=== PATIENT | female | born 1940 ===

== ENCOUNTER → 2020-01-10 15:40 | Outpatient (BNVA) | payer MEDICARE, SELFPAY | PROVIDERS: PCP Internal Medicine; Referring Provider Internal Medicine; Visit Provider Internal Medicine | DX: J44.9 Chronic obstructive pulmonary disease, unspecified (principal); G89.18 Other acute postprocedural pain; R07.89 Other chest pain; J30.9 Allergic rhinitis, unspecified; Z85.118 Personal history of other malignant neoplasm of bronchus and lung | CPT/HCPCS: 99213 ==

== ENCOUNTER 2020-02-26 07:22 | Outpatient (REF) | payer MEDICARE, SELFPAY ==
--- NOTE | 2020-02-26 07:29 | MM_ITS ---
EXAMINATION: MM DIAGNOSTIC DIGITAL BREAST TOMOSYNTHESIS, BILATERAL CLINICAL INFORMATION: Right breast nodule The lifetime risk of breast cancer based on the Tyrer-Cuzick Model is 0.6%. COMPARISON: Mammography: December 08, 2018 and studies dating back to May 10, 2013 TECHNIQUE: Digital breast tomosynthesis is performed in both the craniocaudal and mediolateral oblique views along with computer-aided detection (CAD). Synthesized 2D images are generated from the tomosynthesis. FINDINGS: There are scattered areas of fibroglandular density (ACR BI-RADS breast composition Category b). There are no significant masses, abnormal calcifications, or other abnormalities. Stable density seen upper outer aspect of the right breast. Results are provided to the patient at time of visit by the technologist. MM/MM tomosynthesis diagnostic BI IMPRESSION: There are no significant changes from prior study. ASSESSMENT: BI-RADS 2: Benign RECOMMENDATION: Routine annual mammography screening due in 12 months. This patient's information was entered into a reminder system with a target due date for their next mammogram.
--- NOTE | 2020-02-26 08:18 | CT_ITS ---
EXAMINATION: CT CHEST WITHOUT CONTRAST CLINICAL INFORMATION: Follow-up areas of consolidation and nodules in the right lung COMPARISON: Previous chest CT scans most recent July [address] scan October 2013 TECHNIQUE: Multidetector volumetric CT imaging of the chest was done. Axial MIP volume rendering provided. Sagittal and coronal reformatted images were obtained. This CT examination was performed using dose optimization techniques as appropriate, variously including the following: *Automated exposure control *Adjustment of mA and/or kV according to patient size (this includes techniques or standardized protocols for targeted exams where dose is matched to indication/reason for exam; i.e. extremities or head) *Use of iterative reconstruction technique DLP: 74 mGy-cm FINDINGS: MANAGER SOCIAL MEDIA: LUNGS: There is mild biapical pleural and parenchymal scarring. There are postsurgical changes to the right hemithorax. There is mild bronchial wall thickening seen in the right upper lobe. The previously identified areas of consolidation and nodular opacities have resolved. The nodular opacity in the superior segment of the right lower lobe has resolved. There is a irregularly-shaped partially calcified parenchymal density in the right lower lobe at the right lung base adjacent to the diaphragm. This measures approximately 5 x 10 mm axial image 416 series 7. This is new from previous exam. MEDIASTINUM: There are small mediastinal lymph nodes that are stable. No enlarged lymph nodes are seen. The heart is upper normal in size. There is moderate coronary artery calcification. The thoracic aorta is normal in caliber. The pulmonary arteries are prominent, main pulmonary artery measuring 3.4 cm. There is a trace pericardial effusion or thickening that is stable. PLEURA: There is no pleural effusion. No pleural mass or thickening. AXILLA: No lymphadenopathy. UPPER ABDOMEN: There is intra and extrahepatic biliary duct dilatation that is stable. The common bile duct measures 1.5 cm. This is stable from previous exams. OSSEOUS STRUCTURES: There are degenerative changes of the spine. There are old left rib fractures. CT/CT chest wo con IMPRESSION: Stable postsurgical changes to the right hemithorax. Resolved consolidation and nodular opacities in the right lung. Mild residual bronchial wall thickening in the right upper lobe. New irregularly-shaped partially calcified parenchymal density in the right lower lobe. Attention on follow-up recommended. Coronary artery calcification. Prominent pulmonary arteries. Stable intra-and extrahepatic biliary duct dilatation.
== END 2020-02-26 07:23 | disposition home or self-care (01) ==
LOC: HO.MAMMO 07:22
PROVIDERS: PCP Internal Medicine; Visit Provider Internal Medicine
DX: N63.10 Unspecified lump in the right breast, unspecified quadrant (principal); C34.91 Malignant neoplasm of unspecified part of right bronchus or lung
CPT/HCPCS: 71250; 77062; 77066

== ENCOUNTER → 2020-03-08 09:46 | Outpatient (BNVA) | payer MEDICARE, SELFPAY | PROVIDERS: PCP Internal Medicine; Visit Provider Surgery | DX: C80.1 Malignant (primary) neoplasm, unspecified (principal); Z87.891 Personal history of nicotine dependence | CPT/HCPCS: 99214 ==

== ENCOUNTER → 2020-04-10 09:23 | Outpatient (BNVA) | payer MEDICARE, SELFPAY | PROVIDERS: PCP Internal Medicine; Visit Provider Internal Medicine | DX: J43.9 Emphysema, unspecified (principal); J30.9 Allergic rhinitis, unspecified | CPT/HCPCS: 99212 ==

== ENCOUNTER 2020-06-17 08:34 | Outpatient (REF) | payer MEDICARE, SELFPAY ==
[2020-06-17 11:00] LABS: MANUAL DIFF FLAG NO
[2020-06-17 11:15] LABS: Basophils Absolute Auto 0.1 X10*3/uL (0.0-0.2); Basophils Percent Auto 0.7 % (0-2); Eosinophils Absolute Auto 0.1 X10*3/uL (0.0-0.4); Eosinophils Percent Auto 1.8 % (0-4); Hematocrit 38.5 % (37-47); Hemoglobin 12.9 g/dl (12.0-16.0); Imm Gran Abs Auto 0.02 X10*3/uL (0.00-0.03); Imm Gran Pct Auto 0.3 % (0.0-0.4); Immature Retic Fraction 20.6 % (3.0-15.9); Lymphocytes Absolute Auto 1.6 X10*3/uL (1.2-4.9); Lymphocytes Percent Auto 22.2 % (20-40); Mean Corpuscular HGB Conc 33.5 g/dl (31.0-35.0); Mean Corpuscular Hemoglobin 34.9 pg (27.0-33.0); Mean Corpuscular Volume 104.1 fL (80-98); Mean Platelet Volume 9.5 fL (9.4-12.3); Monocytes Absolute Auto 0.6 X10*3/uL (0.1-1.2); Monocytes Percent Auto 8.6 % (2-11); Neutrophils Absolute Auto 4.7 X10*3/uL (2.0-8.3); Neutrophils Percent Auto 66.4 % (45-73); Platelet Count 226 X10*3/uL (160-400); Red Cell Distribution Width 11.9 % (11.0-16.0); Retic HGB Equivalent 39.2 pg (30.0-35.0); Reticulocyte Percent 2.9 % (0.5-1.8); Reticulocytes Absolute 0.107 X10*6/uL (0.026-0.095); White Blood Count 7.1 X10*3/uL (4.8-10.8)
[2020-06-17 11:32] LABS: Alanine Aminotransferase 22 U/L (0-31); Albumin Level 4.7 g/dL (3.5-5.0); Alkaline Phosphatase 93 U/L (39-117); Anion Gap 20 (12-20); Aspartate Amino Transferase 30 U/L (5-31); Bilirubin Total 1.5 mg/dL (0.0-1.0); Blood Urea Nitrogen 22 mg/dL (9-16); Calcium 9.2 mg/dL (8.4-10.2); Carbon Dioxide 21 mmol/L (22-29); Chloride 103 mmol/L (96-108); Cholesterol 239 mg/dL; Estimated Glomerular Filt Rate 50; Glucose Random 142 mg/dL (60-115); HDL Cholesterol 96 mg/dL; Iron 127 mcg/dL (30-160); LDL Cholesterol Calculated 104 mg/dl; Percent Iron Saturation 40 % (15-50); Potassium 3.8 mmol/L (3.3-5.1); Sodium 140 mmol/L (135-145); Total Iron Binding Capacity 318 mcg/dL (228-428); Total Protein 7.7 g/dL (6.5-8.0); Triglycerides 197 mg/dL; Unsaturated Iron Binding 191 ug/dL
[2020-06-17 11:40] LABS: Estimated Average Glucose 105 mg/dL; Hemoglobin A1c % 5.3 %
[2020-06-17 11:53] LABS: Creatinine Urine 216.55 mg/dL; Microalbum/Creatinine Ratio Ur 75.7 ug/mg cr
[2020-06-17 11:54] LABS: Ferritin 232 ng/mL (10-250); Free T4 (Free Thyroxine) 0.81 ng/dL (0.71-1.85); Thyroid Stimulating Hormone 3.98 uIU/mL (0.32-4.0); Vitamin D 25-OH Total 44.9 ng/mL (>30)
[2020-06-17 12:05] LABS: Folate 19.9 ng/mL (> or = 4.0); Vitamin B12 220 pg/mL (200-900)
== END 2020-06-17 08:35 | disposition home or self-care (01) ==
LOC: HO.HMGCLDS 08:34
PROVIDERS: PCP Internal Medicine; Visit Provider Internal Medicine
DX: E11.65 Type 2 diabetes mellitus with hyperglycemia (principal); E78.00 Pure hypercholesterolemia, unspecified; I10 Essential (primary) hypertension
CPT/HCPCS: 36415; 80053; 80061; 82043; 82306; 82607; 82728; 82746; 83036; 83540; 84439; 84443; 85025; 85045

== ENCOUNTER 2020-06-26 08:48 | Outpatient (REF) | payer MEDICARE, SELFPAY ==
--- NOTE | ~2020-06-26 | XR_ITS ---
EXAMINATION: XR HAND, RIGHT CLINICAL INFORMATION: Pain COMPARISON: Previous x-ray January 2017 TECHNIQUE: PA, lateral, and oblique views of the right hand. FINDINGS: Lungs are osteopenic. No fracture or dislocation is seen. The joint spaces are normal. Soft tissues are normal. XR/XR hand RT min 3V IMPRESSION: Osteopenia.
[2020-06-26 11:05] LABS: MANUAL DIFF FLAG NO
[2020-06-26 11:11] LABS: Basophils Absolute Auto 0.1 X10*3/uL (0.0-0.2); Basophils Percent Auto 1.3 % (0-2); Eosinophils Absolute Auto 0.1 X10*3/uL (0.0-0.4); Eosinophils Percent Auto 3.4 % (0-4); Hematocrit 33.4 % (37-47); Hemoglobin 11.2 g/dl (12.0-16.0); Imm Gran Abs Auto 0.03 X10*3/uL (0.00-0.03); Imm Gran Pct Auto 0.8 % (0.0-0.4); Lymphocytes Absolute Auto 1.3 X10*3/uL (1.2-4.9); Lymphocytes Percent Auto 34.1 % (20-40); Mean Corpuscular HGB Conc 33.5 g/dl (31.0-35.0); Mean Corpuscular Hemoglobin 34.9 pg (27.0-33.0); Monocytes Absolute Auto 0.4 X10*3/uL (0.1-1.2); Monocytes Percent Auto 9.6 % (2-11); Neutrophils Percent Auto 50.8 % (45-73); Platelet Count 330 X10*3/uL (160-400); Red Blood Count 3.21 X10*6/uL (4.20-5.50); Red Cell Distribution Width 11.8 % (11.0-16.0); White Blood Count 3.8 X10*3/uL (4.8-10.8)
[2020-06-26 12:30] LABS: Erythrocyte Sedimentation Rate 49 MM/HR (0-20)
[2020-06-26 18:00] LABS: Alanine Aminotransferase 19 U/L (0-31); Albumin Level 3.9 g/dL (3.5-5.0); Alkaline Phosphatase 77 U/L (39-117); Anion Gap 15 (12-20); Aspartate Amino Transferase 41 U/L (5-31); Bilirubin Total 0.2 mg/dL (0.0-1.0); Blood Urea Nitrogen 12 mg/dL (9-16); Calcium 8.8 mg/dL (8.4-10.2); Carbon Dioxide 28 mmol/L (22-29); Chloride 105 mmol/L (96-108); Estimated Glomerular Filt Rate > 60; Glucose Random 93 mg/dL (60-115); Potassium 4.6 mmol/L (3.3-5.1); Rheumatoid Factor < 15.0 IU/mL (<15.0); Sodium 143 mmol/L (135-145); Total Protein 6.5 g/dL (6.5-8.0)
[2020-06-26 18:12] LABS: Uric Acid 9.8 mg/dL (2.4-5.7)
[2020-06-27 14:12] LABS: CRP High Sensitivity >10.0 mg/L
[2020-06-30 23:02] LABS: Cyclic Citrullinated Peptide <16 UNITS
== END 2020-06-26 08:49 | disposition home or self-care (01) ==
LOC: HO.WFDLDS 08:48
PROVIDERS: Visit Provider Family Medicine
DX: M79.89 Other specified soft tissue disorders (principal)
CPT/HCPCS: 36415; 73130; 80053; 84550; 85025; 85652; 86141; 86200; 86431

== ENCOUNTER 2020-06-26 09:42 | Outpatient (REF) | payer MEDICARE, SELFPAY | END 2020-06-26 09:43 | disposition home or self-care (01) | LOC: HO.HMGCX 09:42 | PROVIDERS: PCP Internal Medicine; Visit Provider Family Medicine | DX: Z13.89 Encounter for screening for other disorder (principal) ==

== ENCOUNTER 2020-07-30 11:12 | Outpatient (REF) | payer MEDICARE, SELFPAY ==
--- NOTE | ~2020-07-30 | CT_ITS ---
EXAMINATION: CT CHEST WITHOUT CONTRAST CLINICAL INFORMATION: Lung cancer COMPARISON: Previous chest CT scans most recent February 2020 TECHNIQUE: Multidetector volumetric CT imaging of the chest was done. Axial MIP volume rendering provided. Sagittal and coronal reformatted images were obtained. This CT examination was performed using dose optimization techniques as appropriate, variously including the following: *Automated exposure control *Adjustment of mA and/or kV according to patient size (this includes techniques or standardized protocols for targeted exams where dose is matched to indication/reason for exam; i.e. extremities or head) *Use of iterative reconstruction technique DLP: 74 mGy-cm FINDINGS: LUNGS: There are postsurgical changes to the right hemithorax following right upper lobe lobectomy with surgical staple line along the fissure. There is soft tissue thickening along the surgical staple line that is stable. There is an irregularly-shaped shaped parenchymal density or nodule seen in superior segment of the right lower lobe that measures 4 mm axial image 114 series 7 that is stable. There is a 3 mm nodule in the left lower lobe laterally and posteriorly axial image 4:15 series 7 and 2 mm left upper lobe nodule axial image 49 series 7 that are stable. The previously identified irregular-shaped nodule at the right lung base adjacent to the diaphragm on most recent exam February 2020 is no longer seen. No new pulmonary nodule is seen. There is evidence of mild emphysema. There is mild left apical pleural and parenchymal scarring.. MEDIASTINUM: There is coronary artery calcification and evidence of atherosclerotic disease. The heart does not appear enlarged. There is no pericardial effusion. The thoracic aorta is normal in caliber. The pulmonary arteries are prominent, main pulmonary artery measuring 3.3 cm similar to previous exam. There are no enlarged hilar or mediastinal lymph nodes. PLEURA: There is no pleural effusion. No pleural mass or thickening. AXILLA: No lymphadenopathy. UPPER ABDOMEN: There is intrahepatic and extrahepatic biliary duct dilatation that is stable. OSSEOUS STRUCTURES: There are degenerative changes of the spine. There are old left rib fractures. CT/CT chest wo con IMPRESSION: Stable postsurgical changes to the right hemithorax following right upper lobe lobectomy. Stable 4 mm irregularly-shaped density or nodule in the superior segment of the right lower lobe. Previously identified irregular shaped density or nodule in the right lower lobe adjacent to the diaphragm on February 2020 exam is no longer seen.
== END 2020-07-30 11:13 | disposition home or self-care (01) ==
LOC: HO.CT 11:12
PROVIDERS: Visit Provider Surgery
DX: C80.1 Malignant (primary) neoplasm, unspecified (principal)
CPT/HCPCS: 71250

== ENCOUNTER 2020-08-13 16:02 | Outpatient (REF) | payer MEDICARE, SELFPAY ==
--- NOTE | ~2020-08-13 | XR_ITS ---
EXAMINATION: XR SHOULDER, LEFT CLINICAL INFORMATION: Pain in the left shoulder COMPARISON: None TECHNIQUE: Three views of the left shoulder. FINDINGS: No fracture or dislocation. No focal bone lesion. There is minor degenerative spurring of the inferior lip of the glenoid. The acromioclavicular joint is normal. No soft tissue calcification. XR/XR shoulder LT min 2V IMPRESSION: Mild degenerative change of the glenohumeral joint.
== END 2020-08-13 16:03 | disposition home or self-care (01) ==
LOC: HO.HMGCX 16:02
PROVIDERS: PCP Family Medicine; Visit Provider Nurse Practitioner Family
DX: M25.562 Pain in left knee (principal)
CPT/HCPCS: 73030

== ENCOUNTER 2020-08-23 07:46 | Outpatient (REF) | payer MEDICARE, SELFPAY ==
[2020-08-23 10:51] LABS: MANUAL DIFF FLAG NO
[2020-08-23 10:55] LABS: Basophils Percent Auto 0.6 % (0-2); Eosinophils Absolute Auto 0.2 X10*3/uL (0.0-0.4); Eosinophils Percent Auto 2.6 % (0-4); Hematocrit 38.7 % (37-47); Hemoglobin 12.9 g/dl (12.0-16.0); Imm Gran Pct Auto 3.2 % (0.0-0.4); Lymphocytes Absolute Auto 2.2 X10*3/uL (1.2-4.9); Mean Corpuscular HGB Conc 33.3 g/dl (31.0-35.0); Mean Corpuscular Hemoglobin 34.8 pg (27.0-33.0); Mean Corpuscular Volume 104.3 fL (80-98); Mean Platelet Volume 9.1 fL (9.4-12.3); Monocytes Absolute Auto 0.7 X10*3/uL (0.1-1.2); Neutrophils Absolute Auto 2.9 X10*3/uL (2.0-8.3); Neutrophils Percent Auto 47.6 % (45-73); Platelet Count 268 X10*3/uL (160-400); Red Blood Count 3.71 X10*6/uL (4.20-5.50); Red Cell Distribution Width 11.8 % (11.0-16.0); White Blood Count 6.2 X10*3/uL (4.8-10.8)
[2020-08-23 11:32] LABS: Estimated Average Glucose 140 mg/dL; Hemoglobin A1c % 6.5 %
[2020-08-23 11:59] LABS: Alanine Aminotransferase 26 U/L (0-31); Albumin Level 4.1 g/dL (3.5-5.0); Alkaline Phosphatase 69 U/L (39-117); Anion Gap 15 (12-20); Aspartate Amino Transferase 30 U/L (5-31); Bilirubin Total 0.7 mg/dL (0.0-1.0); Blood Urea Nitrogen 24 mg/dL (9-16); Calcium 9.6 mg/dL (8.4-10.2); Carbon Dioxide 28 mmol/L (22-29); Chloride 102 mmol/L (96-108); Cholesterol 240 mg/dL; Estimated Glomerular Filt Rate 55; Glucose Fasting 127 mg/dL (60-99); HDL Cholesterol 102 mg/dL; LDL Cholesterol Calculated 60 mg/dl; Potassium 5.2 mmol/L (3.3-5.1); Sodium 140 mmol/L (135-145); Total Protein 6.6 g/dL (6.5-8.0); Triglycerides 394 mg/dL; Uric Acid 5.4 mg/dL (2.4-5.7)
[2020-08-23 12:21] LABS: TSH reflex Free T4 5.42 uIU/mL (0.32-4.0)
[2020-08-23 13:01] LABS: Free T4 (Free Thyroxine) 1.01 ng/dL (0.71-1.85)
== END 2020-08-23 07:47 | disposition home or self-care (01) ==
LOC: HO.WFDLDS 07:46
PROVIDERS: PCP Family Medicine; Visit Provider Family Medicine
DX: Z00.00 Encounter for general adult medical examination without abnormal findings (principal); M10.9 Gout, unspecified; E11.65 Type 2 diabetes mellitus with hyperglycemia; D53.9 Nutritional anemia, unspecified
CPT/HCPCS: 36415; 80053; 80061; 83036; 84439; 84443; 84550; 85025

== ENCOUNTER → 2020-09-25 11:23 | Outpatient (BNVA) | payer MEDICARE, SELFPAY | PROVIDERS: PCP Family Medicine; Visit Provider Student in an Organized Health Care Education/Training Program | DX: M10.9 Gout, unspecified (principal); R29.6 Repeated falls; M85.80 Other specified disorders of bone density and structure, unspecified site; E11.65 Type 2 diabetes mellitus with hyperglycemia; I10 Essential (primary) hypertension; E78.00 Pure hypercholesterolemia, unspecified; E55.9 Vitamin D deficiency, unspecified; F10.10 Alcohol abuse, uncomplicated; Z87.891 Personal history of nicotine dependence; Z88.6 Allergy status to analgesic agent; Z88.5 Allergy status to narcotic agent; Z88.2 Allergy status to sulfonamides; Z88.8 Allergy status to other drugs, medicaments and biological substances; Z79.52 Long term (current) use of systemic steroids; Z79.899 Other long term (current) drug therapy | CPT/HCPCS: 99202 ==

== ENCOUNTER 2020-09-25 12:07 | Emergency (ER) | payer MEDICARE, SELFPAY ==
[2020-09-25] VITALS (7 sets, daily range): BP systolic 103–163; BP diastolic 40–66; PULSE 52–68; RESP 17–19; TEMP 36.3; O2SAT 98–99; BMI 18.3
--- NOTE | 2020-09-25 | ECG_ITS ---
Test Reason : DIZZINESS Blood Pressure : / mmHG Vent. Rate : 060 BPM Atrial Rate : 060 BPM P-R Int : 170 ms QRS Dur : 088 ms QT Int : 434 ms P-R-T Axes : 071 015 064 degrees QTc Int : 434 ms Normal sinus rhythm Normal ECG When compared with ECG of 20-JUL-2015 05:55, No significant change was found Referred By: Generic ED Physician Electronically Signed By:SKYE RIOS
--- NOTE | ~2020-09-25 | CT_ITS ---
EXAMINATION: CT CERVICAL SPINE WITHOUT CONTRAST CLINICAL INFORMATION: Dizziness, fall COMPARISON: CT chest noncontrast 07/30/2020. TECHNIQUE: Multidetector volumetric CT imaging of the cervical spine is performed without contrast in the axial plane. Additional 2D reformatted coronal and sagittal images are generated on the CT workstation and uploaded to PACS. This CT examination was performed using dose optimization techniques as appropriate, variously including the following: *Automated exposure control *Adjustment of mA and/or kV according to patient size (this includes techniques or standardized protocols for targeted exams where dose is matched to indication/reason for exam; i.e. extremities or head) *Use of iterative reconstruction technique DLP: 271 mGy-cm FINDINGS: There is no vertebral compression fracture, fracture line, spondylolisthesis, or prevertebral soft tissue swelling. The craniocervical junction appears normal. The odontoid appears intact. There is straightening of cervical lordosis. There are mild degenerative changes between anterior arch C1 and the dens. No focal disc narrowing or erosive change. No perched facet. There are postsurgical changes right apex consistent with prior lobectomy with linear scarring and linear calcification in the scar similar to CT 07/30/2020. No apical pneumothorax. No subcutaneous emphysema. CT/CT cervical spine wo con IMPRESSION: No acute bony abnormality or prevertebral soft tissue swelling.
--- NOTE | ~2020-09-25 | CT_ITS ---
EXAMINATION: CT HEAD WITHOUT CONTRAST CLINICAL INFORMATION: Dizziness, fall COMPARISON: CT head noncontrast 07/20/2015 TECHNIQUE: Contiguous axial imaging was performed from the skull base to vertex without intravenous administration of contrast. Additional 2-D coronal and sagittal reformatted images are generated on the CT workstation and uploaded to PACS. This CT examination was performed using dose optimization techniques as appropriate, variously including the following: *Automated exposure control *Adjustment of mA and/or kV according to patient size (this includes techniques or standardized protocols for targeted exams where dose is matched to indication/reason for exam; i.e. extremities or head) *Use of iterative reconstruction technique DLP: 625 mGy-cm FINDINGS: There is no intracranial hemorrhage, hematoma, or extra-axial fluid collection. The ventricles are normal in size. There is no hydrocephalus, edema, or mass effect. There are mild generalized atrophic changes with prominence of the cortical sulci and fissures and cisterns. The vogel-white matter differentiation appears symmetric. There is no visible acute territorial infarct or mass lesion. Again, there is incidental prominent cisterna magna and bilateral basal ganglia calcifications. The calvarium appears intact. There is no pneumocephalus or orbital emphysema. The visualized sinuses and middle ears and mastoid air cells show no significant mucosal thickening. There are no air-fluid levels. CT/CT head/brain wo con IMPRESSION: No acute intracranial abnormality.
--- NOTE | 2020-09-25 15:31 | ED_ITS ---
HPI - Fall General Chief Complaint: Fall Stated Complaint: multiple falls, hands, feet tingling Time Seen by Provider: 09/25/20 14:59 Source: patient and family Mode of arrival: ambulatory Limitations: no limitations History of Present Illness HPI Narrative: 80 y/o female with history of lung adenocarcinoma s/p resection July 2019, COPD, chronic gout, allergic rhinitis, daily alcohol abuse, diet controlled diabetes, osteoporosis, HTN, HLD who presents to the ED from home with her daughter for evaluation of multiple falls at home today. Patient reports falling 5x earlier this morning. When she stands up fast she usually gets some dizziness, but today it was worse. She reports feeling like someone was pushing her down from behind. When she tried to get back up she would fall again. She did not hit her head or lose consciousness. She has some bruising on her left forearm. She is not on anticoagulation. Daughter and patient went to her 1st Rheumatology appointment earlier today and the patient was confused and did not know why they were there. This is not usual behavior for her. She does admit to drinking vodka daily. Patient reports for the last few days her feet have been tingling as well. No numbness, weakness, headache, neck pain, joint pain, dysarthria, or facial droop reported. MD complaint: fall Onset (ago): hour(s) Fall from: standing Fall witnessed: yes, by bystander Place fall occurred: home Loss of consciousness: none Prolonged down time: no Symptoms prior to fall: dizziness Context: tripped/slipped and alcohol use Location of injury - extremities: left: forearm Severity: moderate Associated symptoms (after fall): lightheaded and confusion Related Data Home Medications Medication Instructions Recorded Confirmed cholecalciferol (vitamin D3) 50 50 mcg PO DAILY 01/10/20 09/25/20 mcg (2,000 unit) capsule lorazepam 0.5 mg PO DAILY PRN 09/25/20 09/25/20 Previous Rx's Medication Instructions Recorded simvastatin 5 mg tablet 5 mg PO BEDTIME #90 tab 03/19/20 lisinopril 40 mg tablet 40 mg PO DAILY 90 Days #90 tab 07/31/20 omeprazole 20 mg capsule,delayed 20 mg PO DAILY 90 Days #90 cap 07/31/20 release allopurinol 100 mg tablet 100 mg PO DAILY 30 Days #30 tab 08/30/20 sertraline 50 mg tablet 50 mg PO DAILY 90 Days #90 tab 08/30/20 prednisone 2.5 mg tablet 2.5 mg PO DAILY #30 tab 09/04/20 Allergies Allergy/AdvReac Type Severity Reaction Status Date / Time alendronate sodium [Fosamax] Allergy Unknown Unknown Verified 09/25/20 12:30 aspirin [Aspirin] Allergy Unknown UNKNOWN Verified 09/25/20 11:31 codeine [CODEINE] Allergy Unknown ITCHING Verified 09/25/20 11:31 naproxen Allergy Unknown Unknown Verified 09/25/20 11:31 sodium hypochlorite solution Allergy Unknown BLEACH-LIPS Verified 09/25/20 11:31 [sodium hypochlorite] TIGHTEN Sulfa (Sulfonamide Allergy Unknown Unknown Verified 09/25/20 11:31 Antibiotics) trimethoprim [From Bactrim] Allergy Unknown Unknown Verified 09/25/20 11:31 cyanocobalamin (vitamin B12) AdvReac Intermediate nausea Verified 09/25/20 11:31 Review of Systems Review of Systems: Constitutional: No Fever, No Chills ENT/Mouth: No sore throat, No Rhinorrhea, No Swallowing Difficulty Eyes: No Eye Pain, No Swelling, No Redness Cardiovascular: No Chest Pain, No SOB, No Orthopnea, No Edema Respiratory: + Cough, No Sputum, No Wheezing, No dyspnea Gastrointestinal: No Nausea, No Vomiting, No Diarrhea, No abdominal Pain, No Hematochezia, No Melena Genitourinary: No Dysuria, No Urinary Frequency, No Hematuria Musculoskeletal: No joint pain, No Myalgias Skin: No Skin Lesions, No rash Neuro: No Weakness, No Numbness, + Dizziness, No Headache Psych: No Anxiety/Panic, No Depression Heme/Lymph: + Bruising, No Lymphadenopathy Endocrine: No Polyuria, No Polydipsia PMFSH Past Medical History Medical History (Updated 09/25/20 @ 19:50 by ALIYA Travis) Adenocarcinoma Alcohol abuse Allergic rhinitis Chest wall pain following surgery COPD (chronic obstructive pulmonary disease) Gout Hypercholesterolemia Hypertension Osteoporosis Type 2 diabetes mellitus with hyperglycemia Vitamin D deficiency Surgical History History of ankle surgery History of lobectomy of lung (~08/2019) Family History Family History Father No problems noted. Mother No problems noted. Brother Bone cancer Social History Social History (Updated 09/25/20 @ 11:35 by Darren Romero LPN) Alcohol intake: current Alcohol intake frequency: a few times a week Patient Tobacco Use Status: Former Tobacco user Use of substances other than those prescribed or required for medical reasons: No Advance Directives: No Advance Directives Information Provided: Yes Physical Exam Vital Signs: Vital Signs: Last Vital Signs Temp 97.4 F 09/25/20 12:30 Pulse 57 09/25/20 18:32 Resp 17 09/25/20 18:22 BP 122/62 09/25/20 18:32 Pulse Ox 99 09/25/20 18:22 Body Mass Index 18.3 Appearance: Alert. Oriented X3. No acute distress. Eyes: Pupils equal, round and reactive to light. EOMI, no nystagmus ENT: Pharynx normal. Neck: Normal inspection. Neck supple. CVS: Normal heart rate and rhythm. Pulses normal. Respiratory: No respiratory distress. Breath sounds normal. Abdomen: Soft and nontender. +BS x4 Skin: Skin warm and dry. Normal skin color. Normal skin turgor. No rashes. Extremities: No lower extremity edema. Left forearm with mild ecchymosis distally on the dorsal aspect, nontender. Neuro: Oriented X 3. No motor deficit. No sensory deficit. Speaking e rratically. Normal finger to nose and heel to bojorquez. NIH Stroke Scale Internal: Initial- Upon Arrival Level of Consciousness: Alert Level of Consciousness Questions: Answers both questions correctly Level of Consciousness Commands: Performs both tasks correctly Best Gaze: Normal Visual: No visual loss Facial Palsy: Normal Motor Arm (Right): No drift Motor Arm (Left): No drift Motor Leg (Right): No drift Motor Leg (Left): No drift Limb Ataxia: Absent Sensory: Normal Best Language: No aphasia Dysarthia: Normal Extinction and Inattention: No abnormality Score: 0 Course Course Course Narrative: 80 y/o female with history of lung cancer s/p resection, DM2, anxiety/depression, daily ETOH abuse, chronic gout who is presenting with multiple falls this morning and confusion earlier today. She also reports tingling in her feet and sometimes her hands for the last 2-3 days. Denies history of neuropathy. Neuro exam is nonfocal and NIH score is 0. Not a tPA candidate at this time. Doubt posterior circulation stroke as dizziness is only with movement and standing up quickly, seems to be chronic only worse today. Concern for ETOH intoxication causing her falls earlier today. Will get ETOH level, Utox, lab workup, EKG and CT head/neck given multiple falls. Patient has no complaints and wants to go home. Reevaluation(s) Reevaluation #1: ETOH level 79. She admits to drinking alcohol this morning. Does not think she has an alcohol abuse problem. graduation coach spoke with daughter and patient at the bedside. Lab workup showing mild metabolic acidosis, non-anion gap, question due to alcohol abuse and starvation ketosis. Also with mild hyperkalemia 5.6, given IVF ordered. She is ambulating around the ER with a steady gait. Reevaluation #2: Lactic acid is normal. venous pH 7.29. Getting IVF and sleeping between care. She remains hemodynamically stable and non-focal. She ambulates independently with a steady gait. She declines need for alcohol abuse or dependence. She lives home with a roommate. Daughter comfortable taking her home and following up with PCP for repeat labs this week. Comfortable with d/c home with family. MDM - Fall Medical Records Attestation: I reviewed the patient's medical records. Lab Data Attestation: I reviewed the patient's lab results. Result diagrams: 09/25/20 16:24 09/25/20 15:54 Labs: Lab Results 09/25/20 09/25/20 09/25/20 Range/Units 15:54 16:24 16:24 WBC 4.9 (4.8-10.8) X10*3/uL RBC 3.32 L (4.20-5.50) X10*6/uL Hgb 11.2 L (12.0-16.0) g/dl Hct 34.3 L (37-47) % MCV 103.3 H (80-98) fL MCH 33.7 H (27.0-33.0) pg MCHC 32.7 (31.0-35.0) g/dl RDW 11.7 (11.0-16.0) % Plt Count 243 (160-400) X10*3/uL MPV 8.6 L (9.4-12.3) fL Immature Gran % (Auto) 0.8 H (0.0-0.4) % Neut % (Auto) 53.0 (45-73) % Lymph % (Auto) 37.9 (20-40) % [place] % (Auto) 5.5 (2-11) % Eos % (Auto) 1.6 (0-4) % Baso % (Auto) 1.2 (0-2) % Lymph # (Auto) 1.9 (1.2-4.9) X10*3/uL [place] # (Auto) 0.3 (0.1-1.2) X10*3/uL Eos # (Auto) 0.1 (0.0-0.4) X10*3/uL Baso # (Auto) 0.1 (0.0-0.2) X10*3/uL Abs Immat Gran (auto) 0.04 H (0.00-0.03) X10*3/uL Absolute Neuts (auto) 2.6 (2.0-8.3) X10*3/uL Absolute Nucleated RBC 0.000 (0.0-0.012) X10*3/uL Nucleated RBC % (auto) 0.0 (0.0-0.2) /100WBC PT 9.4 L (9.9-13.0) SEC INR 0.8 L (0.9-1.1) APTT 35.4 (24.1-38.0) SEC VBG pH (7.32-7.43) VBG pCO2 mmHg VBG pO2 mmHg VBG HCO3 (22-26) mmol/L VBG O2 Saturation % VBG Base Excess mmol/L Sodium 142 (135-145) mmol/L Potassium 5.6 H (3.3-5.1) mmol/L Chloride 113 H (96-108) mmol/L Carbon Dioxide 16 L (22-29) mmol/L Anion Gap 19 (12-20) BUN 19 H (9-16) mg/dL Creatinine 0.87 (0.5-1.4) mg/dL Estim Creat Clear Calc 33.4 Estimated GFR > 60 Random Glucose 87 (60-115) mg/dL Lactic Acid (0.5-2.0) mmol/L Calcium 9.2 (8.4-10.2) mg/dL Magnesium 2.2 (1.6-2.6) mg/dL Total Bilirubin 0.6 (0.0-1.0) mg/dL Direct Bilirubin 0.2 (0.0-0.5) mg/dL AST 24 (5-31) U/L ALT 15 (0-31) U/L Alkaline Phosphatase 75 (39-117) U/L Troponin I High Sens (<3.5-17.0) ng/L Total Protein 6.8 (6.5-8.0) g/dL Albumin 4.0 (3.5-5.0) g/dL Urine Opiates Screen (Not Detect) Ur Barbiturates Screen (Not Detect) Ur Phencyclidine Scrn (Not Detect) Ur Amphetamines Screen (Not Detect) U Benzodiazepines Scrn (Not Detect) Urine Cocaine Screen (Not Detect) U Marijuana (THC) Screen (Not Detect) Ethyl Alcohol mg/dL 09/25/20 09/25/20 09/25/20 Range/Units 16:24 16:24 17:39 WBC (4.8-10.8) X10*3/uL RBC (4.20-5.50) X10*6/uL Hgb (12.0-16.0) g/dl Hct (37-47) % MCV (80-98) fL MCH (27.0-33.0) pg MCHC (31.0-35.0) g/dl RDW (11.0-16.0) % Plt Count (160-400) X10*3/uL MPV (9.4-12.3) fL Immature Gran % (Auto) (0.0-0.4) % Neut % (Auto) (45-73) % Lymph % (Auto) (20-40) % [place] % (Auto) (2-11) % Eos % (Auto) (0-4) % Baso % (Auto) (0-2) % Lymph # (Auto) (1.2-4.9) X10*3/uL [place] # (Auto) (0.1-1.2) X10*3/uL Eos # (Auto) (0.0-0.4) X10*3/uL Baso # (Auto) (0.0-0.2) X10*3/uL Abs Immat Gran (auto) (0.00-0.03) X10*3/uL Absolute Neuts (auto) (2.0-8.3) X10*3/uL Absolute Nucleated RBC (0.0-0.012) X10*3/uL Nucleated RBC % (auto) (0.0-0.2) /100WBC PT (9.9-13.0) SEC INR (0.9-1.1) APTT (24.1-38.0) SEC VBG pH (7.32-7.43) VBG pCO2 mmHg VBG pO2 mmHg VBG HCO3 (22-26) mmol/L VBG O2 Saturation % VBG Base Excess mmol/L Sodium (135-145) mmol/L Potassium (3.3-5.1) mmol/L Chloride (96-108) mmol/L Carbon Dioxide (22-29) mmol/L Anion Gap (12-20) BUN (9-16) mg/dL Creatinine (0.5-1.4) mg/dL Estim Creat Clear Calc Estimated GFR Random Glucose (60-115) mg/dL Lactic Acid 1.8 (0.5-2.0) mmol/L Calcium (8.4-10.2) mg/dL Magnesium (1.6-2.6) mg/dL Total Bilirubin (0.0-1.0) mg/dL Direct Bilirubin (0.0-0.5) mg/dL AST (5-31) U/L ALT (0-31) U/L Alkaline Phosphatase (39-117) U/L Troponin I High Sens < 3.5 (<3.5-17.0) ng/L Total Protein (6.5-8.0) g/dL Albumin (3.5-5.0) g/dL Urine Opiates Screen (Not Detect) Ur Barbiturates Screen (Not Detect) Ur Phencyclidine Scrn (Not Detect) Ur Amphetamines Screen (Not Detect) U Benzodiazepines Scrn (Not Detect) Urine Cocaine Screen (Not Detect) U Marijuana (THC) Screen (Not Detect) Ethyl Alcohol 79 mg/dL 09/25/20 09/25/20 Range/Units 17:43 18:41 WBC (4.8-10.8) X10*3/uL RBC (4.20-5.50) X10*6/uL Hgb (12.0-16.0) g/dl Hct (37-47) % MCV (80-98) fL MCH (27.0-33.0) pg MCHC (31.0-35.0) g/dl RDW (11.0-16.0) % Plt Count (160-400) X10*3/uL MPV (9.4-12.3) fL Immature Gran % (Auto) (0.0-0.4) % Neut % (Auto) (45-73) % Lymph % (Auto) (20-40) % [place] % (Auto) (2-11) % Eos % (Auto) (0-4) % Baso % (Auto) (0-2) % Lymph # (Auto) (1.2-4.9) X10*3/uL [place] # (Auto) (0.1-1.2) X10*3/uL Eos # (Auto) (0.0-0.4) X10*3/uL Baso # (Auto) (0.0-0.2) X10*3/uL Abs Immat Gran (auto) (0.00-0.03) X10*3/uL Absolute Neuts (auto) (2.0-8.3) X10*3/uL Absolute Nucleated RBC (0.0-0.012) X10*3/uL Nucleated RBC % (auto) (0.0-0.2) /100WBC PT (9.9-13.0) SEC INR (0.9-1.1) APTT (24.1-38.0) SEC VBG pH 7.29 L (7.32-7.43) VBG pCO2 38 mmHg VBG pO2 50 mmHg VBG HCO3 19 L (22-26) mmol/L VBG O2 Saturation 69.0 % VBG Base Excess -6.7 mmol/L Sodium (135-145) mmol/L Potassium (3.3-5.1) mmol/L Chloride (96-108) mmol/L Carbon Dioxide (22-29) mmol/L Anion Gap (12-20) BUN (9-16) mg/dL Creatinine (0.5-1.4) mg/dL Estim Creat Clear Calc Estimated GFR Random Glucose (60-115) mg/dL Lactic Acid (0.5-2.0) mmol/L Calcium (8.4-10.2) mg/dL Magnesium (1.6-2.6) mg/dL Total Bilirubin (0.0-1.0) mg/dL Direct Bilirubin (0.0-0.5) mg/dL AST (5-31) U/L ALT (0-31) U/L Alkaline Phosphatase (39-117) U/L Troponin I High Sens (<3.5-17.0) ng/L Total Protein (6.5-8.0) g/dL Albumin (3.5-5.0) g/dL Urine Opiates Screen Not Detected (Not Detect) Ur Barbiturates Screen Not Detected (Not Detect) Ur Phencyclidine Scrn Not Detected (Not Detect) Ur Amphetamines Screen Not Detected (Not Detect) U Benzodiazepines Scrn Not Detected (Not Detect) Urine Cocaine Screen Not Detected (Not Detect) U Marijuana (THC) Screen Not Detected (Not Detect) Ethyl Alcohol mg/dL ECG Data Attestation: I personally reviewed and interpreted this ECG as follows: ECG interpretation date: 09/25/20 Interpretation: normal sinus rhythm, HR 60 bpm, normal VA interval, normal QTC, no ST segment elevations or depressions. Discharge Plan Discharge Clinical Impression: Multiple falls, Alcohol abuse Patient Disposition: Home, Self-Care Instructions: Fall Prevention for Older Adults (ED), Abuse of Alcohol (ED) Additional Instructions: Recommend cutting back on your alcohol intake. Recommend following up with your doctor this week for repeat blood work. When you go from sitting to standing, do so slowly. If you develop new or worsening symptoms call 911 or come back to the ER for further evaluation. Prescriptions: No Action lorazepam 0.5 mg tablet 0.5 mg PO DAILY PRN (Reason: Anxiety) RF: 0 sertraline 50 mg tablet 50 mg PO DAILY 90 Days Qty: 90 RF: 3 allopurinol 100 mg tablet 100 mg PO DAILY 30 Days Qty: 30 RF: 1 prednisone 2.5 mg tablet 2.5 mg PO DAILY Qty: 30 RF: 0 simvastatin 5 mg tablet 5 mg PO BEDTIME Qty: 90 RF: 1 lisinopril 40 mg tablet 40 mg PO DAILY 90 Days Qty: 90 RF: 3 omeprazole 20 mg capsule,delayed release(DR/EC) 20 mg PO DAILY 90 Days Qty: 90 RF: 2 cholecalciferol (vitamin D3) 50 mcg (2,000 unit) capsule 50 mcg PO DAILY RF: 0 Referrals: Chauncey Shafer MD [Primary Care Provider] - 2 days (falls, ETOH use, mild hyperkalemia) Interventions: ED Discharge Assessment Last Done: 09/25/20 19:57 Discharge Date/Time: 09/25/20 19:59
--- NOTE | 2020-09-25 16:19 | PHA.MEDREC ---
Pharmacy Consult ? Medication Reconciliation Pharmacy has completed the medication reconciliation.
[2020-09-25] MEDS: 0.9 % Sodium Chloride 1,000 ML 999 ML IVCONT ×2 (16:30→18:25)
[2020-09-25 16:31] LABS: Basophils Absolute Auto 0.1 X10*3/uL (0.0-0.2); Basophils Percent Auto 1.2 % (0-2); Eosinophils Absolute Auto 0.1 X10*3/uL (0.0-0.4); Eosinophils Percent Auto 1.6 % (0-4); Hematocrit 34.3 % (37-47); Hemoglobin 11.2 g/dl (12.0-16.0); Imm Gran Abs Auto 0.04 X10*3/uL (0.00-0.03); Imm Gran Pct Auto 0.8 % (0.0-0.4); Lymphocytes Absolute Auto 1.9 X10*3/uL (1.2-4.9); Lymphocytes Percent Auto 37.9 % (20-40); Mean Corpuscular HGB Conc 32.7 g/dl (31.0-35.0); Mean Corpuscular Hemoglobin 33.7 pg (27.0-33.0); Mean Corpuscular Volume 103.3 fL (80-98); Mean Platelet Volume 8.6 fL (9.4-12.3); Monocytes Absolute Auto 0.3 X10*3/uL (0.1-1.2); Monocytes Percent Auto 5.5 % (2-11); Neutrophils Absolute Auto 2.6 X10*3/uL (2.0-8.3); Platelet Count 243 X10*3/uL (160-400); Red Blood Count 3.32 X10*6/uL (4.20-5.50); Red Cell Distribution Width 11.7 % (11.0-16.0); White Blood Count 4.9 X10*3/uL (4.8-10.8)
[2020-09-25 16:36] LABS: INTERNATIONAL NORM RATIO 0.8 (0.9-1.1); Prothrombin Time 9.4 SEC (9.9-13.0)
[2020-09-25 16:39] LABS: Partial Thromboplastin Time 35.4 SEC (24.1-38.0)
[2020-09-25 16:55] LABS: Ethanol 79 mg/dL
[2020-09-25 17:03] LABS: Troponin-I High Sensitivity < 3.5 ng/L (<3.5-17.0)
[2020-09-25 17:20] LABS: Alanine Aminotransferase 15 U/L (0-31); Alkaline Phosphatase 75 U/L (39-117); Anion Gap 19 (12-20); Aspartate Amino Transferase 24 U/L (5-31); Bilirubin Direct 0.2 mg/dL (0.0-0.5); Bilirubin Total 0.6 mg/dL (0.0-1.0); Blood Urea Nitrogen 19 mg/dL (9-16); Calcium 9.2 mg/dL (8.4-10.2); Carbon Dioxide 16 mmol/L (22-29); Chloride 113 mmol/L (96-108); Creatinine Clr Calc Pharmacy 33.4; Estimated Glomerular Filt Rate > 60; Glucose Random 87 mg/dL (60-115); Magnesium 2.2 mg/dL (1.6-2.6); Potassium 5.6 mmol/L (3.3-5.1); Sodium 142 mmol/L (135-145); Total Protein 6.8 g/dL (6.5-8.0)
[2020-09-25 17:53] LABS: VBG Base Excess -6.7 mmol/L; VBG HCO3 19 mmol/L (22-26); VBG pCO2 38 mmHg; VBG pH 7.29 (7.32-7.43); VBG pO2 50 mmHg
[2020-09-25 17:53] LABS: Venous Blood Gas Refer to POC result
[2020-09-25 18:10] LABS: Lactic Acid 1.8 mmol/L (0.5-2.0)
[2020-09-25 19:15] LABS: Amphetamine Screen Urine Not Detected (Not Detect); Barbiturates, Urine Not Detected (Not Detect); Benzodiazepines Screen Urine Not Detected (Not Detect); Cannabinoid Screen Urine Not Detected (Not Detect); Cocaine Screen Urine Not Detected (Not Detect); Opiate Screen Urine Not Detected (Not Detect); Phencyclidine Screen Urine Not Detected (Not Detect)
== END 2020-09-25 19:59 | disposition home or self-care (01) ==
PROVIDERS: Physician Assistant; Emergency Provider Emergency Medicine; PCP Family Medicine
DX: R29.6 Repeated falls (principal); F10.10 Alcohol abuse, uncomplicated; Y90.3 Blood alcohol level of 60-79 mg/100 ml; E87.5 Hyperkalemia; E11.9 Type 2 diabetes mellitus without complications; I10 Essential (primary) hypertension; J44.9 Chronic obstructive pulmonary disease, unspecified; Z79.899 Other long term (current) drug therapy; Z85.118 Personal history of other malignant neoplasm of bronchus and lung
CPT/HCPCS: 36415; 70450; 72125; 80048; 80076; 80307; 82077; 83605; 83735; 84484; 85025; 85610; 85730; 93005; 96360; 96361; 99285

== ENCOUNTER → 2020-09-30 09:15 | Outpatient (BNVA) | payer MEDICARE, SELFPAY | PROVIDERS: PCP Family Medicine; Visit Provider Internal Medicine | DX: J43.9 Emphysema, unspecified (principal); J30.9 Allergic rhinitis, unspecified; C80.1 Malignant (primary) neoplasm, unspecified | CPT/HCPCS: 99212 ==

== ENCOUNTER → 2020-10-11 09:11 | Outpatient (BNVA) | payer MEDICARE, SELFPAY | PROVIDERS: PCP Family Medicine; Visit Provider Surgery | DX: C34.90 Malignant neoplasm of unspecified part of unspecified bronchus or lung (principal); Z90.2 Acquired absence of lung [part of] | CPT/HCPCS: 99212 ==

== ENCOUNTER 2020-10-25 07:58 | Outpatient (REF) | payer MEDICARE, SELFPAY ==
--- NOTE | ~2020-10-25 | MM_ITS ---
EXAMINATION: BONE DENSITOMETRY CLINICAL INDICATION: Osteopenia. COMPARISON: Previous BD dated 06/03/2018 and baseline BD dated 11/09/2007. TECHNIQUE: Using a [employer] DXA System (software version: 13.1) manufactured by [employer], dual-energy x-ray absorptiometry was performed of the lumbar spine and left hip. The images are of good technical quality. Summary results are attached. FINDINGS: AP SPINE L1-L4: Current: BMD 0.868 g/cm2, Z-score 0.0, T-score -2.6, osteoporosis, 0.9% increase from previous, 1.4% increase from baseline (<5% change is not significant). Prior: BMD 0.860 g/cm2. Baseline: BMD 0.856 g/cm2. LEFT FEMUR, NECK: Current: BMD 0.654 g/cm2, Z-score 0.0, T-score -2.8, osteoporosis. Prior: BMD 0.651 g/cm2. Baseline: BMD 0.733 g/cm2. LEFT FEMUR, TOTAL: Current: BMD 0.638 g/cm2, Z-score -0.3, T-score -2.9, osteoporosis, 2.6% decrease from previous, 17.0% decrease from baseline (<5% change is not significant). Prior: BMD 0.655 g/cm2. Baseline: BMD 0.769 g/cm2. IDENTIFIED RISK FACTORS: Early menopause, glucocorticoids (chronic), alcohol (3 or more units per day), history of fracture (adult), hysterectomy, osteoporosis, secondary osteoporosis. HISTORY OF FRACTURE: Tibia/fibula. MEDICATIONS: Vitamin D. MM/XR DEXA axial skeleton IMPRESSION: 1. DIAGNOSIS: Osteoporosis based on the lowest T-score value of -2.9 in the total femur applying World Health Organization criteria. 2. 10-YEAR FRACTURE RISK PREDICTION, FRAX: Major osteoporotic fracture (clinical spine, forearm, hip or shoulder) 31.4%. Hip fracture 15.8%. 3. Treatment Recommendations: NOF guidelines recommend consideration for treatment in postmenopausal women and men age 50 and older presenting with the following: -A hip or vertebral (clinical or morphometric) fracture. -T-score less than or equal to -2.5 at the femoral neck or spine after appropriate evaluation to exclude secondary causes. -Low bone mass at the hip or spine and a 10-year fracture probability by FRAX of greater than or equal to 3% for hip fracture or greater than or equal to 20% for major osteoporotic fracture based on the [place] adapted WHO algorithm. 4. Other Recommendations: All treatment decisions require clinical judgment and consideration of individual patient factors, including patient preferences, comorbidities, previous drug use, risk factors not captured in the FRAX model (e.g. frailty, falls, vitamin D deficiency, increased bone turnover, interval significant decline in bone density) and possible under or overestimation of fracture risk by FRAX. Additional medical evaluation for secondary cause of low bone mineral density may be appropriate. FUTURE SCAN RECOMMENDATION: People with diagnosed cases of osteoporosis or at high risk for fracture should have regular bone mineral density tests. For patients eligible for Medicare, routine testing is allowed once every 2 years. The testing frequency can be increased to one year for patients who have rapidly progressing disease, those who are receiving or discontinuing medical therapy to restore bone mass, or have additional risk factors.
== END 2020-10-25 07:59 | disposition home or self-care (01) ==
LOC: HO.MAMMO 07:58
PROVIDERS: Visit Provider Student in an Organized Health Care Education/Training Program
DX: M85.80 Other specified disorders of bone density and structure, unspecified site (principal); E27.49 Other adrenocortical insufficiency; F10.10 Alcohol abuse, uncomplicated; Z78.0 Asymptomatic menopausal state; Z90.710 Acquired absence of both cervix and uterus
CPT/HCPCS: 77080

== ENCOUNTER 2020-11-05 09:27 | Outpatient (REF) | payer MEDICARE, SELFPAY ==
[2020-11-05 11:47] LABS: Uric Acid 6.1 mg/dL (2.4-5.7)
== END 2020-11-05 09:28 | disposition home or self-care (01) ==
LOC: HO.WFDLDS 09:27
PROVIDERS: Visit Provider Family Medicine
DX: M25.561 Pain in right knee (principal)
CPT/HCPCS: 36415; 84550

== ENCOUNTER 2020-11-05 10:22 | Outpatient (REF) | payer MEDICARE, SELFPAY ==
--- NOTE | ~2020-11-05 | XR_ITS ---
EXAMINATION: XR KNEE, RIGHT CLINICAL INFORMATION: Pain. COMPARISON: Radiographs dated 06/15/2019. TECHNIQUE: AP, lateral, and both oblique views of the right knee. FINDINGS: Bony alignment and mineralization are normal. The lateral, medial and patellofemoral joint space compartments are well-maintained. No fracture or dislocation is seen. There is a large joint effusion. An enthesophyte arises from the upper pole of the patella at the quadriceps tendon insertion. There is swelling of the anterior soft tissues. No foreign body is seen. XR/XR knee RT 4V IMPRESSION: 1. No right knee fracture, dislocation or unusual degenerative change is seen. 2. There is a large right knee joint effusion. 3. There is swelling of the anterior soft tissues.
== END 2020-11-05 10:23 | disposition home or self-care (01) ==
LOC: HO.HMGCX 10:22
PROVIDERS: PCP Family Medicine; Visit Provider Family Medicine
DX: M25.561 Pain in right knee (principal)
CPT/HCPCS: 73564

== ENCOUNTER 2020-11-06 08:03 | Outpatient (REF) | payer MEDICARE, SELFPAY ==
[2020-11-06 09:20] LABS: MANUAL DIFF FLAG NO
[2020-11-06 09:24] LABS: Basophils Absolute Auto 0.1 X10*3/uL (0.0-0.2); Basophils Percent Auto 0.8 % (0-2); Eosinophils Absolute Auto 0.1 X10*3/uL (0.0-0.4); Eosinophils Percent Auto 1.5 % (0-4); Hematocrit 31.5 % (37-47); Hemoglobin 10.4 g/dl (12.0-16.0); Imm Gran Abs Auto 0.02 X10*3/uL (0.00-0.03); Imm Gran Pct Auto 0.3 % (0.0-0.4); Lymphocytes Absolute Auto 1.1 X10*3/uL (1.2-4.9); Lymphocytes Percent Auto 18.3 % (20-40); Mean Corpuscular Hemoglobin 33.4 pg (27.0-33.0); Mean Corpuscular Volume 101.3 fL (80-98); Mean Platelet Volume 9.3 fL (9.4-12.3); Monocytes Absolute Auto 0.5 X10*3/uL (0.1-1.2); Neutrophils Absolute Auto 4.2 X10*3/uL (2.0-8.3); Neutrophils Percent Auto 71.1 % (45-73); Platelet Count 211 X10*3/uL (160-400); Red Blood Count 3.11 X10*6/uL (4.20-5.50); Red Cell Distribution Width 11.7 % (11.0-16.0); White Blood Count 5.9 X10*3/uL (4.8-10.8)
[2020-11-06 10:11] LABS: Alanine Aminotransferase 20 U/L (0-31); Albumin Level 4.1 g/dL (3.5-5.0); Alkaline Phosphatase 77 U/L (39-117); Anion Gap 15 (12-20); Aspartate Amino Transferase 15 U/L (5-31); Bilirubin Total 0.8 mg/dL (0.0-1.0); Blood Urea Nitrogen 13 mg/dL (9-16); C Reactive Protein 12.27 mg/dL (< or = 0.50); Calcium 9.2 mg/dL (8.4-10.2); Carbon Dioxide 26 mmol/L (22-29); Chloride 104 mmol/L (96-108); Estimated Glomerular Filt Rate > 60; Glucose Random 137 mg/dL (60-115); Potassium 4.7 mmol/L (3.3-5.1); Rheumatoid Factor < 15.0 IU/mL (<15.0); Sodium 140 mmol/L (135-145); Total Protein 6.5 g/dL (6.5-8.0)
[2020-11-06 10:34] LABS: Erythrocyte Sedimentation Rate 86 MM/HR (0-20)
[2020-11-06 12:45] LABS: Uric Acid 6.2 mg/dL (2.4-5.7)
[2020-11-07 14:31] LABS: Cyclic Citrullinated Peptide <16 UNITS
== END 2020-11-06 08:04 | disposition home or self-care (01) ==
LOC: HO.LAB 08:03
PROVIDERS: PCP Family Medicine; Visit Provider Student in an Organized Health Care Education/Training Program
DX: M10.9 Gout, unspecified (principal); M81.0 Age-related osteoporosis without current pathological fracture
CPT/HCPCS: 36415; 80053; 81381; 84550; 85025; 85652; 86140; 86200; 86431; 99212

== ENCOUNTER 2021-01-16 08:11 | Outpatient (REF) | payer MEDICARE, SELFPAY ==
[2021-01-16 11:19] LABS: Appearance Urine CLEAR; Color Urine YELLOW; Glucose Urine UA NEG (NEG); Leukocyte Esterase Urine 1+ (NEG); Nitrite Urine NEG (NEG); Specific Gravity - Urine 1.015 (1.005-1.025); Urine Blood NEG (NEG); Urine Ketones NEG (NEG); Urine Protein NEG (NEG-TRACE)
[2021-01-16 11:20] LABS: MANUAL DIFF FLAG NO
[2021-01-16 11:22] LABS: Basophils Absolute Auto 0.1 X10*3/uL (0.0-0.2); Basophils Percent Auto 0.8 % (0-2); Eosinophils Absolute Auto 0.1 X10*3/uL (0.0-0.4); Eosinophils Percent Auto 1.2 % (0-4); Hematocrit 37.4 % (37-47); Hemoglobin 12.4 g/dl (12.0-16.0); Imm Gran Abs Auto 0.03 X10*3/uL (0.00-0.03); Imm Gran Pct Auto 0.5 % (0.0-0.4); Lymphocytes Absolute Auto 2.6 X10*3/uL (1.2-4.9); Lymphocytes Percent Auto 38.9 % (20-40); Mean Corpuscular HGB Conc 33.2 g/dl (31.0-35.0); Mean Corpuscular Hemoglobin 31.9 pg (27.0-33.0); Mean Corpuscular Volume 96.1 fL (80-98); Mean Platelet Volume 9.1 fL (9.4-12.3); Monocytes Absolute Auto 0.4 X10*3/uL (0.1-1.2); Monocytes Percent Auto 5.9 % (2-11); Neutrophils Absolute Auto 3.5 X10*3/uL (2.0-8.3); Neutrophils Percent Auto 52.7 % (45-73); Platelet Count 353 X10*3/uL (160-400); Red Blood Count 3.89 X10*6/uL (4.20-5.50); Red Cell Distribution Width 12.4 % (11.0-16.0); White Blood Count 6.6 X10*3/uL (4.8-10.8)
[2021-01-16 11:50] LABS: Squamous Epithelial Cell Urine 1+ /LPF
[2021-01-16 11:51] LABS: Bacteria Urine 3+ /LPF; RBC Urine 0-2 /HPF (0)
[2021-01-16 12:04] LABS: Vitamin D 25-OH Total 48.7 ng/mL (>30)
[2021-01-16 12:08] LABS: Alanine Aminotransferase 14 U/L (0-31); Albumin Level 4.3 g/dL (3.5-5.0); Alkaline Phosphatase 52 U/L (39-117); Anion Gap 16 (12-20); Aspartate Amino Transferase 19 U/L (5-31); Bilirubin Total 0.5 mg/dL (0.0-1.0); Blood Urea Nitrogen 32 mg/dL (9-16); Calcium 9.7 mg/dL (8.4-10.2); Carbon Dioxide 28 mmol/L (22-29); Chloride 102 mmol/L (96-108); Cholesterol 220 mg/dL; Estimated Glomerular Filt Rate 53; Glucose Fasting 119 mg/dL (60-99); HDL Cholesterol 94 mg/dL; LDL Cholesterol Calculated 101 mg/dl; Potassium 3.9 mmol/L (3.3-5.1); Sodium 142 mmol/L (135-145); Total Protein 6.8 g/dL (6.5-8.0); Triglycerides 125 mg/dL
[2021-01-16 13:08] LABS: Free T4 (Free Thyroxine) 0.82 ng/dL (0.71-1.85)
== END 2021-01-16 08:12 | disposition home or self-care (01) ==
LOC: HO.HMGCLDS 08:11
PROVIDERS: PCP Family Medicine; Visit Provider Family Medicine
DX: Z00.00 Encounter for general adult medical examination without abnormal findings (principal); E55.9 Vitamin D deficiency, unspecified
CPT/HCPCS: 36415; 80053; 80061; 81001; 82306; 84439; 84443; 85025

== ENCOUNTER 2021-02-01 07:51 | Outpatient (REF) | payer MEDICARE, SELFPAY | END 2021-02-01 07:52 | disposition home or self-care (01) | LOC: HO.MAMMO 07:51 | PROVIDERS: PCP Family Medicine; Visit Provider Family Medicine | DX: Z13.89 Encounter for screening for other disorder (principal) ==

== ENCOUNTER 2021-03-05 08:25 | Outpatient (REF) | payer MEDICARE, SELFPAY ==
--- NOTE | ~2021-03-05 | MM_ITS ---
EXAMINATION: MM SCREENING DIGITAL BREAST TOMOSYNTHESIS, BILATERAL CLINICAL INFORMATION: Screening. Asymptomatic. The lifetime risk of breast cancer based on the Tyrer-Cuzick Model is 1%. COMPARISON: Mammography: 02/26/2020, 12/08/2018, 06/08/2018, 06/03/2018, 09/13/2015 TECHNIQUE: Digital breast tomosynthesis is performed in both the craniocaudal and mediolateral oblique views along with computer-aided detection (CAD). Synthesized 2D images are generated from the tomosynthesis. FINDINGS: There are scattered areas of fibroglandular density (ACR BI-RADS breast composition Category b). There are no significant masses, abnormal calcifications, or other abnormalities. Benign nodularity mid upper outer right breast on prior exams is no longer demonstrated. There are scattered bilateral vascular calcifications. No significant changes. MM/MM tomosynthesis screening BI IMPRESSION: No mammographic evidence of malignancy. ASSESSMENT: BI-RADS 2: Benign RECOMMENDATION: Routine annual mammography screening. This patient's information was entered into a reminder system with a target due date for their next mammogram.
== END 2021-03-05 08:26 | disposition home or self-care (01) ==
LOC: HO.MAMMO 08:25
PROVIDERS: Visit Provider Family Medicine
DX: Z12.31 Encounter for screening mammogram for malignant neoplasm of breast (principal)
CPT/HCPCS: 77063; 77067

== ENCOUNTER 2021-04-03 13:22 | Outpatient (REF) | payer MEDICARE, SELFPAY ==
--- NOTE | ~2021-04-03 | CT_ITS ---
EXAMINATION: CT CHEST WITHOUT CONTRAST CLINICAL INFORMATION: Malignant neoplasm. COMPARISON: CT chest 07/30/2020. TECHNIQUE: Multidetector volumetric CT imaging of the chest was done. Axial MIP volume rendering provided. Sagittal and coronal reformatted images were obtained. This CT examination was performed using dose optimization techniques as appropriate, variously including the following: *Automated exposure control *Adjustment of mA and/or kV according to patient size (this includes techniques or standardized protocols for targeted exams where dose is matched to indication/reason for exam; i.e. extremities or head) *Use of iterative reconstruction technique DLP: 83 mGy-cm FINDINGS: FINANCE MANAGER: Hyperinflated lungs. LUNGS: There are postsurgical changes in the right upper lobe with no new recurrent nodule or mass seen. Mild thickening along the surgical staple line is stable to previous exam. There is a 4 mm irregular-shaped nodule right lower lobe superior segment image 145/5, stable. 3 mm nodule left lower lobe lateral segment subpleural-based axial image 436/5, stable. 2 mm nodule left upper lobe axial image 84/5 is stable. No additional pulmonary nodules are seen. There is mild bilateral apical pleural thickening. There is prominent reticular interstitial thickening in the left lung base, stable. MEDIASTINUM: The thyroid lobes are symmetrical and normal. The central trachea and the bronchi are widely patent. No abnormal mediastinal lymph node seen. There are mild atherosclerotic changes of thoracic arch without aneurysmal dilatation. No pericardial effusion seen. There are coronary artery calcifications present. PLEURA: There is no pleural effusion. No pleural mass or thickening. AXILLA: No abnormal axillary lymph nodes or mass seen. UPPER ABDOMEN: Visualized liver, spleen, pancreas and bilateral adrenal glands unremarkable. OSSEOUS STRUCTURES: There is mild spondylosis. No lytic or sclerotic process seen. CT/CT chest wo con IMPRESSION: Postsurgical changes in the right hemithorax following right upper lobectomy. Mild soft tissue thickening along the staple line is stable. Irregular-shaped nodule superior segment right lower lobe and two additional nodules in the left lung are stable. No new nodules are seen. There is bilateral apical pleural thickening and parenchymal scarring. No abnormal lymphadenopathy seen. Fleischner guidelines were followed.
== END 2021-04-03 13:23 | disposition home or self-care (01) ==
LOC: HO.CT 13:22
PROVIDERS: Visit Provider Surgery
DX: C80.1 Malignant (primary) neoplasm, unspecified (principal)
CPT/HCPCS: 71250

== ENCOUNTER → 2021-04-11 08:31 | Outpatient (BNVA) | payer MEDICARE, SELFPAY | PROVIDERS: PCP Family Medicine; Visit Provider Surgery | DX: C80.1 Malignant (primary) neoplasm, unspecified (principal); R07.89 Other chest pain; G89.18 Other acute postprocedural pain; Z90.2 Acquired absence of lung [part of]; Z79.899 Other long term (current) drug therapy | CPT/HCPCS: 99212 ==

== ENCOUNTER 2021-06-13 09:03 | Outpatient (REF) | payer MEDICARE, SELFPAY ==
[2021-06-13 12:14] LABS: Free T4 (Free Thyroxine) 0.85 ng/dL (0.71-1.85); Thyroid Stimulating Hormone 3.81 uIU/mL (0.32-4.0)
[2021-06-13 12:23] LABS: Uric Acid 8.4 mg/dL (2.4-5.7)
[2021-06-13 12:31] LABS: Estimated Average Glucose 137 mg/dL; Hemoglobin A1c % 6.4 %
[2021-06-15 00:57] LABS: Triiodothyronine T3 Total 92 ng/dL (76-181)
== END 2021-06-13 09:04 | disposition home or self-care (01) ==
LOC: HO.WFDLDS 09:03
PROVIDERS: Visit Provider Family Medicine
DX: R73.01 Impaired fasting glucose (principal); M10.9 Gout, unspecified; E03.9 Hypothyroidism, unspecified
CPT/HCPCS: 36415; 83036; 84439; 84443; 84480; 84550

== ENCOUNTER 2021-09-09 10:04 | Outpatient (REF) | payer MEDICARE, SELFPAY ==
--- NOTE | ~2021-09-09 | CT_ITS ---
EXAMINATION: CT CHEST WITHOUT CONTRAST CLINICAL INFORMATION: Malignant neoplasm. COMPARISON: CT chest 04/03/2021 and 07/30/2020. TECHNIQUE: Multidetector volumetric CT imaging of the chest was done. Axial MIP volume rendering provided. Sagittal and coronal reformatted images were obtained. This CT examination was performed using dose optimization techniques as appropriate, variously including the following: *Automated exposure control. *Adjustment of mA and/or kV according to patient size (this includes techniques or standardized protocols for targeted exams where dose is matched to indication/reason for exam; i.e. extremities or head). *Use of iterative reconstruction technique. DLP: 77 mGy-cm FINDINGS: ATTENDANCE OFFICER: Unremarkable. LUNGS: There are postsurgical changes in the right upper lobe with small focal scarring and thickening of major fissure. No mass or lesion seen in postsurgical changes. A 5 mm irregular-shaped nodule in the right lower lobe superior segment is stable on axial image 131/7. MEDIASTINUM: The thyroid lobes are symmetric and normal. The central trachea and the bronchi are widely patent. No abnormal size mediastinal lymph nodes or mass seen. The heart size and the great vessels are normal caliber. No pericardial effusion seen. There is trace coronary artery calcifications noted. PLEURA: Minimal left posterior pleural thickening. No effusion seen. No calcified pleural plaques. AXILLA: No lymphadenopathy. UPPER ABDOMEN: Visualized liver, spleen, pancreas and bilateral adrenal glands are unremarkable. OSSEOUS STRUCTURES: No lytic or sclerotic process seen. CT/CT chest wo con IMPRESSION: 1. Postsurgical changes right upper lobe with thick scar and nodularity. No recurrent mass in this region. 2. Irregular-shaped 5 mm nodule superior segment right lower lobe is grossly stable. No additional nodules seen. No abnormal size mediastinal or hilar adenopathy. 3. Trace coronary artery calcifications. Fleischner guidelines were followed.
== END 2021-09-09 10:05 | disposition home or self-care (01) ==
LOC: HO.CT 10:04
PROVIDERS: Visit Provider Surgery
DX: C80.1 Malignant (primary) neoplasm, unspecified (principal)
CPT/HCPCS: 71250

== ENCOUNTER 2021-09-25 10:37 | Outpatient (REF) | payer MEDICARE, SELFPAY ==
[2021-09-25 13:54] LABS: Estimated Average Glucose 126 mg/dL
[2021-09-25 13:57] LABS: Alanine Aminotransferase 41 U/L (0-31); Albumin Level 4.7 g/dL (3.5-5.0); Alkaline Phosphatase 71 U/L (39-117); Anion Gap 16 (12-20); Aspartate Amino Transferase 41 U/L (5-31); Bilirubin Total 0.9 mg/dL (0.0-1.0); Blood Urea Nitrogen 18 mg/dL (9-16); Calcium 9.5 mg/dL (8.4-10.2); Carbon Dioxide 26 mmol/L (22-29); Chloride 103 mmol/L (96-108); Estimated Glomerular Filt Rate 55; Glucose Random 128 mg/dL (60-115); Potassium 4.3 mmol/L (3.3-5.1); Sodium 141 mmol/L (135-145); Total Protein 7.4 g/dL (6.5-8.0); Uric Acid 7.4 mg/dL (2.4-5.7)
== END 2021-09-25 10:38 | disposition home or self-care (01) ==
LOC: HO.WFDLDS 10:37
PROVIDERS: Visit Provider Family Medicine
DX: Z00.00 Encounter for general adult medical examination without abnormal findings (principal); R73.01 Impaired fasting glucose; M10.9 Gout, unspecified
CPT/HCPCS: 36415; 80053; 83036; 84550

== ENCOUNTER → 2021-10-03 08:50 | Outpatient (BNVA) | payer MEDICARE, SELFPAY | PROVIDERS: PCP Family Medicine; Visit Provider Surgery | DX: C80.1 Malignant (primary) neoplasm, unspecified (principal); R07.89 Other chest pain; G89.18 Other acute postprocedural pain | CPT/HCPCS: 99212 ==

== ENCOUNTER → 2021-10-08 09:25 | Outpatient (BNVA) | payer MEDICARE, SELFPAY | PROVIDERS: PCP Family Medicine; Visit Provider Internal Medicine | DX: J43.9 Emphysema, unspecified (principal); R07.89 Other chest pain; G89.18 Other acute postprocedural pain; C80.1 Malignant (primary) neoplasm, unspecified; J30.9 Allergic rhinitis, unspecified | CPT/HCPCS: 99212 ==

== ENCOUNTER 2021-12-18 09:39 | Outpatient (REF) | payer MEDICARE, SELFPAY ==
[2021-12-18 12:16] LABS: Alanine Aminotransferase 25 U/L (0-31); Albumin Level 4.2 g/dL (3.5-5.0); Alkaline Phosphatase 53 U/L (39-117); Anion Gap 13 (12-20); Aspartate Amino Transferase 50 U/L (5-31); Bilirubin Total 0.5 mg/dL (0.0-1.0); Blood Urea Nitrogen 15 mg/dL (9-16); Calcium 8.8 mg/dL (8.4-10.2); Carbon Dioxide 21 mmol/L (22-29); Chloride 106 mmol/L (96-108); Estimated Glomerular Filt Rate > 60; Glucose Random 154 mg/dL (60-115); Potassium 4.3 mmol/L (3.3-5.1); Sodium 136 mmol/L (135-145); Total Protein 6.3 g/dL (6.5-8.0)
== END 2021-12-18 09:40 | disposition home or self-care (01) ==
LOC: HO.WFDLDS 09:39
PROVIDERS: Visit Provider Family Medicine
DX: R74.8 Abnormal levels of other serum enzymes (principal); E79.0 Hyperuricemia without signs of inflammatory arthritis and tophaceous disease
CPT/HCPCS: 36415; 80053

== ENCOUNTER 2022-02-24 08:57 | Outpatient (REF) | payer MEDICARE, SELFPAY ==
--- NOTE | ~2022-02-24 | US_ITS ---
EXAMINATION: US ABDOMEN LIMITED WITH LIVER ELASTOGRAPHY CLINICAL INFORMATION: Elevated LFTs. COMPARISON: None. TECHNIQUE: Real-time imaging of the abdominal viscera. Noninvasive ultrasound liver fibrosis assessment is performed using [employer] point quantification shear wave elastography (2D-SWE) with a C5-2 MHz transducer. Multiple elastography samples are obtained. FINDINGS: PANCREAS: The pancreatic duct is prominent measuring 0.30 The visualized pancreatic head and body are normal in appearance. The remainder of the pancreas is obscured from visualization by the overlying bowel gas. LIVER: The liver demonstrates normal size, contour and mildly increased echogenicity. No focal lesion or intrahepatic biliary duct dilatation. The right lobe measures 12.3 cm in length. The left lobe measures 9.5 cm in length. Portal flow is hepatopedal. Shear wave liver elastography median stiffness is 1.46 m/s (reference: normal median stiffness is 1.3 m/s or less). IQR/median stiffness to assess sampling precision is 0.08 (reference: good quality data set is IQR/median stiffness of 0.15 or less). GALLBLADDER: The gallbladder has been surgically removed. COMMON BILE DUCT: Dilated in caliber measuring 1.8 cm in diameter. 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 No hydronephrosis. No renal calculi or focal parenchymal lesions. The kidney measures 8.6 cm in maximum dimension. FREE FLUID: None. US/US abdomen quiroz w elastography IMPRESSION: 1. Mild mild hepatic steatosis. No focal lesion. 2. Prominent pancreatic duct. 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 3 Liver elastography: Median liver stiffness measures 1.46 m/s corresponding to cACLD (ruled out). REFERENCE: Society of Radiologists in Ultrasound Liver Stiffness Thresholds (2020): LIVER STIFFNESS THRESHOLDS: *Liver Stiffness equal or less than 1.3 m/s: High probability of being normal. *Liver Stiffness less than 1.7 m/s: In the absence of other known clinical signs, rules out compensated advanced chronic liver disease. *Liver Stiffness 1.7-2.1 m/s: Suggestive of compensated advanced chronic liver disease but need further test for confirmation. *Liver Stiffness over 2.1 m/s: Rules in compensated advanced chronic liver disease. *Liver Stiffness over 2.4 m/s: Suggestive of clinically significant portal hypertension. QUALITY OF DATA SET: *IQR/Median value equal or less than 0.15 implies a quality data set. *IQR/Median value over 0.15 implies a poor quality data set. SIGNIFICANT CHANGE FROM PRIOR EXAM: Significant change if liver stiffness measurement is 10% or greater from prior exam. OTHER CONSIDERATIONS: The stage of liver fibrosis may be overestimated in the setting of acute hepatitis, liver inflammation, elevated liver function tests, hepatic vascular congestion, obstructive cholestasis, non-fasting state, and infiltrative diseases such as amyloidosis and lymphoma. In some patients with NAFLD, the liver stiffness thresholds for compensated advanced chronic liver disease may be lower. In causes other than viral hepatitis and NAFLD, liver stiffness thresholds are not well established.
== END 2022-02-24 08:58 | disposition home or self-care (01) ==
LOC: HO.US 08:57
PROVIDERS: Visit Provider Family Medicine
DX: R74.8 Abnormal levels of other serum enzymes (principal)
CPT/HCPCS: 76705; 76981

== ENCOUNTER 2022-03-09 09:26 | Outpatient (REF) | payer MEDICARE, SELFPAY ==
--- NOTE | ~2022-03-09 | MM_ITS ---
EXAMINATION: MM SCREENING DIGITAL BREAST TOMOSYNTHESIS, BILATERAL CLINICAL INFORMATION: Screening. Asymptomatic. COMPARISON: Mammography: 03/05/2021, 02/26/2020, 12/08/2018, 06/03/2018 TECHNIQUE: Digital breast tomosynthesis is performed in both the craniocaudal and mediolateral oblique views along with computer-aided detection (CAD). Synthesized 2D images are generated from the tomosynthesis. Additional right MLO view is provided. FINDINGS: There are scattered areas of fibroglandular density (ACR BI-RADS breast composition Category b). There are no significant masses, abnormal calcifications, or other abnormalities. Parenchymal pattern is similar to prior studies. There is no developing density or architectural abnormality. There is a benign chronic nodule anterior upper outer right breast borderline decreased since 2019. The axilla and skin contours are unremarkable. No significant changes. MM/MM tomosynthesis screening BI IMPRESSION: No mammographic evidence of malignancy. ASSESSMENT: BI-RADS 2: Benign RECOMMENDATION: Routine annual mammography screening. This patient's information was entered into a reminder system with a target due date for their next mammogram.
== END 2022-03-09 09:27 | disposition home or self-care (01) ==
LOC: HO.MAMMO 09:26
PROVIDERS: PCP Family Medicine; Visit Provider Family Medicine
DX: Z12.31 Encounter for screening mammogram for malignant neoplasm of breast (principal)
CPT/HCPCS: 77063; 77067

== ENCOUNTER 2022-03-11 12:15 | Outpatient (REF) | payer MEDICARE, SELFPAY ==
[2022-03-11 14:19] LABS: Alanine Aminotransferase 32 U/L (0-31); Albumin Level 4.4 g/dL (3.5-5.0); Alkaline Phosphatase 81 U/L (39-117); Anion Gap 15 (12-20); Aspartate Amino Transferase 35 U/L (5-31); Bilirubin Total 0.6 mg/dL (0.0-1.0); Blood Urea Nitrogen 9 mg/dL (9-16); Calcium 9.4 mg/dL (8.4-10.2); Carbon Dioxide 26 mmol/L (22-29); Chloride 105 mmol/L (96-108); Estimated Glomerular Filt Rate > 60; Glucose Random 115 mg/dL (60-115); Potassium 4.8 mmol/L (3.3-5.1); Sodium 141 mmol/L (135-145); Total Protein 6.7 g/dL (6.5-8.0); Uric Acid 6.6 mg/dL (2.4-5.7)
[2022-03-11 14:28] LABS: Estimated Average Glucose 123 mg/dL; Hemoglobin A1c % 5.9 %
== END 2022-03-11 12:16 | disposition home or self-care (01) ==
LOC: HO.WFDLDS 12:15
PROVIDERS: Visit Provider Family Medicine
DX: R74.8 Abnormal levels of other serum enzymes (principal); E79.0 Hyperuricemia without signs of inflammatory arthritis and tophaceous disease; R73.03 Prediabetes
CPT/HCPCS: 36415; 80053; 83036; 84550

== ENCOUNTER 2022-06-25 10:21 | Outpatient (REF) | payer MEDICARE, SELFPAY ==
[2022-06-25 14:23] LABS: MANUAL DIFF FLAG NO
[2022-06-25 14:30] LABS: Basophils Absolute Auto 0.1 X10*3/uL (0.0-0.2); Basophils Percent Auto 1.2 % (0-2); Eosinophils Absolute Auto 0.2 X10*3/uL (0.0-0.4); Eosinophils Percent Auto 3.9 % (0-4); Hematocrit 37.7 % (37.0-47.0); Hemoglobin 12.7 g/dl (12.0-16.0); Imm Gran Abs Auto 0.01 X10*3/uL (0.00-0.03); Imm Gran Pct Auto 0.2 % (0.0-0.4); Lymphocytes Absolute Auto 1.4 X10*3/uL (1.2-4.9); Lymphocytes Percent Auto 27.5 % (20-40); Mean Corpuscular HGB Conc 33.7 g/dl (31.0-35.0); Mean Corpuscular Hemoglobin 33.2 pg (27.0-33.0); Mean Corpuscular Volume 98.4 fL (80.0-98.0); Mean Platelet Volume 9.4 fL (9.4-12.3); Monocytes Absolute Auto 0.4 X10*3/uL (0.1-1.2); Monocytes Percent Auto 7.4 % (2-11); Neutrophils Absolute Auto 3.1 x10*3/uL (2.0-8.3); Neutrophils Percent Auto 59.8 % (45-73); Platelet Count 207 X10*3/uL (160-400); Red Blood Count 3.83 X10*6/uL (4.20-5.50); Red Cell Distribution Width 11.4 % (11.0-16.0); White Blood Count 5.2 X10*3/uL (4.8-10.8)
[2022-06-25 14:38] LABS: Alanine Aminotransferase 45 U/L (0-31); Albumin Level 4.4 g/dL (3.5-5.0); Alkaline Phosphatase 98 U/L (39-117); Anion Gap 14 (12-20); Aspartate Amino Transferase 48 U/L (5-31); Bilirubin Total 1.2 mg/dL (0.0-1.0); Blood Urea Nitrogen 11 mg/dL (9-16); Calcium 9.3 mg/dL (8.4-10.2); Carbon Dioxide 27 mmol/L (22-29); Chloride 106 mmol/L (96-108); Cholesterol 199 mg/dL; Estimated Glomerular Filt Rate > 60; Glucose Fasting 126 mg/dL (60-99); HDL Cholesterol 78 mg/dL; LDL Cholesterol Calculated 66 mg/dl; Potassium 4.4 mmol/L (3.3-5.1); Sodium 143 mmol/L (135-145); Total Protein 6.6 g/dL (6.5-8.0); Triglycerides 275 mg/dL; Uric Acid 5.2 mg/dL (2.4-5.7)
[2022-06-25 14:55] LABS: TSH reflex Free T4 2.42 uIU/mL (0.32-4.0)
[2022-06-25 15:18] LABS: Erythrocyte Sedimentation Rate 7 MM/HR (0-20)
== END 2022-06-25 10:22 | disposition home or self-care (01) ==
LOC: HO.WFDLDS 10:21
PROVIDERS: Visit Provider Family Medicine
DX: Z00.00 Encounter for general adult medical examination without abnormal findings (principal); M10.9 Gout, unspecified; M79.641 Pain in right hand; M79.642 Pain in left hand
CPT/HCPCS: 36415; 80053; 80061; 84443; 84550; 85025; 85652

== ENCOUNTER 2022-10-26 07:20 | Outpatient (REF) | payer MEDICARE, SELFPAY ==
--- NOTE | ~2022-10-26 | CT_ITS ---
EXAMINATION: CT CHEST WITHOUT CONTRAST CLINICAL INFORMATION: Malignant neoplasm. COMPARISON: CT chest 04/11/2021. TECHNIQUE: Multidetector volumetric CT imaging of the chest was done. Axial MIP volume rendering provided. Sagittal and coronal reformatted images were obtained. This CT examination was performed using dose optimization techniques as appropriate, variously including the following: *Automated exposure control *Adjustment of mA and/or kV according to patient size (this includes techniques or standardized protocols for targeted exams where dose is matched to indication/reason for exam; i.e. extremities or head) *Use of iterative reconstruction technique DLP: 89 mGy-cm FINDINGS: LUNGS: Again seen are postoperative changes in the right upper lobe with a suture line. There is no evidence of a recurrent mass. Small stellate opacity in the superior segment of the right lower lobe is unchanged (5:161 compare prior 7:131). There is a 3 mm nodule present at the left lung base which is unchanged (5:435 compare prior 7:379). There is some new mucous present layering in the trachea just above the feliciano with some intermixed air. The central airways are otherwise patent. No new or suspicious lung mass is seen. MEDIASTINUM: Heart size upper limits of normal. No mediastinal or hilar lymphadenopathy. The visualized thyroid appears unremarkable. Calcific plaque is present in the aorta and great vessels. CORONARY ARTERY CALCIFICATION: Present. PLEURA: There is no pleural effusion. No pleural mass or thickening. AXILLA: No lymphadenopathy. UPPER ABDOMEN: Unremarkable. OSSEOUS STRUCTURES: Unremarkable. CT/CT chest wo IV con IMPRESSION: 1. Stable postoperative changes right upper lobe without evidence of recurrent mass. 2. Stable small pulmonary nodules. 3. No evidence of metastatic disease in the chest. 4. Incidental note made of some new mucous in the trachea. Fleischner guidelines were followed.
== END 2022-10-26 07:21 | disposition home or self-care (01) ==
LOC: HO.CT 07:20
PROVIDERS: Visit Provider Surgery
DX: C80.1 Malignant (primary) neoplasm, unspecified (principal)
CPT/HCPCS: 71250

== ENCOUNTER 2022-11-06 09:01 | Outpatient (AMB) | payer MEDICARE, SELFPAY ==
--- NOTE | 2022-11-06 09:15 | MHC.OFFVIS ---
Intake Vital Signs 11/06/22 09:16 Height 5 ft 1 in Weight 92 lb BMI 17.4 BP 110/60 Blood Pressure Location Lt brachial Position Sitting Pulse 62 Pulse Oximetry (%) 98 Intake Visit Reasons: 1 year follow up Allergies aspirin [Aspirin] Allergy (Unknown, Verified 11/06/22 09:17) UNKNOWN codeine [CODEINE] Allergy (Unknown, Verified 11/06/22 09:17) ITCHING naproxen Allergy (Unknown, Verified 11/06/22 09:17) Unknown sodium hypochlorite solution [sodium hypochlorite] Allergy (Unknown, Verified 11/06/22 09:17) BLEACH-LIPS TIGHTEN Sulfa (Sulfonamide Antibiotics) Allergy (Unknown, Verified 11/06/22 09:17) Unknown trimethoprim [From Bactrim] Allergy (Unknown, Verified 11/06/22 09:17) Unknown cyanocobalamin (vitamin B12) Adverse Reaction (Intermediate, Verified 11/06/22 09:17) nausea Medication List - Last Reconciled 11/06/22 by Luis Bro MD allopurinol 200 mg (2 x 100 mg) PO DAILY 90 days cholecalciferol (vitamin D3) 50 mcg PO DAILY 30 days cholecalciferol (vitamin D3) 50 mcg PO DAILY fluticasone propionate 50 mcg/actuation (Flonase Allergy Relief) 1 spray intranasal Q12H 30 days lidocaine HCl 1% 1 ea topical TID 30 days lisinopril 40 mg PO DAILY 90 days lorazepam 0.5 mg PO DAILY PRN 30 days omeprazole 20 mg PO DAILY 90 days sertraline 25 mg (1/2 x 50 mg) PO DAILY 90 days simvastatin 5 mg PO BEDTIME HPI 1 year follow up HPI Details 81-year-old woman status post Davinci right middle lobectomy and right upper lobe posterior segmentectomy for 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 She has had serial CT scans since that time the most recent being from 04/03/2021 which is compared with 07/30/2020.? This CT scan shows no evidence of recurrence and no mediastinal lymphadenopathy and no pleural fluid.? Her final six-month follow-up CT scan of the chest was done on 09/09/2021 and reviewed by me directly.? This scan shows no evidence of recurrence or new disease and a stable ground-glass nodule.? She denies new or significant shortness of breath, cough, hemoptysis, fevers, chills, unintentional weight loss, chest pain, or any new neurologic symptoms.? She does tell me she has had cataract surgery in October and November of 2020 and her main goal plain is about her sinuses or allergies that has been going up a further about the past year.? She does also tell me that she has pain over the right chest radiates anteriorly over the 7th or 8th intercostal dermatome.? She is currently using a cream for that likely with local anesthetic that seems to work quite well for her. Her most recent CT scan was done on 10/26/2022 compared with 09/09/2021 which shows no evidence of recurrence, no new nodules, and no mediastinal lymphadenopathy. She does still have the pain referred to above but the cream does not work she says anymore. She does a lot a work in the [employer] and says that she has a lot of bug bites because of that but the pain does limit her. She also says she lost her son recently is quite distressed about that. Other than above, 12 point review of systems was done and documented separately in the office chart with detailed social and family history. ? ? [facility] Medical History Adenocarcinoma Alcohol abuse Allergic rhinitis Chest wall pain following surgery COPD (chronic obstructive pulmonary disease) Gout Hypercholesterolemia Hypertension Osteoporosis Type 2 diabetes mellitus with hyperglycemia Vitamin D deficiency Surgical History History of ankle surgery History of lobectomy of lung (~08/2019) Family History Father No problems noted. Mother No problems noted. Brother Bone cancer Social History Housing: Apartment Alcohol intake: current Alcohol intake frequency: a few times a week Patient Tobacco Use Status: Former Tobacco user e-Cigarette/Vaping Use: Never Used Second Hand Smoke Exposure: No service: No Current occupational status: retired Current occupational exposures/hazards: No Cognitive needs: No Hearing needs: No Vision needs: No Physical Exam Vital Signs: Last Vital Signs Pulse 62 11/06/22 09:16 BP 110/60 11/06/22 09:16 Pulse Ox 98 11/06/22 09:16 BMI result Body Mass Index 17.4 General: No acute distress HEENT: Moist mucous membranes, normocephalic, pupils equal round and reactive to light. Neck: No thyromegaly, supple, no JVD Lymph: No cervical, supraclavicular, or other lymphadenopathy Chest: No chest wall abnormalities or deformities wounds are well healed Heart: Regular rate and rhythm Lungs: Clear to auscultation bilaterally Abdomen: Soft, nontender, normal bowel sounds Extremities: No edema, cyanosis, or clubbing. Full range of motion she does have a lot of old insect bites which are scabbed over now Neuro: Grossly intact, alert and oriented x3, and nonfocal Skin: Warm and dry no rashes Affect: Normal Assessment & Plan Assessment & Plan (1) Adenocarcinoma: Comment: August 2019 ADENOCA RT MIDDLE AND UPPER LOBE S/P RESECTION , NO RECURRENCE . BUT MAY HAVE SCAR TISSUE AND CHRONIC INTERCOSTAL NERVES IRRITATION . Code(s): C80.1 - Malignant (primary) neoplasm, unspecified Plan: I discussed her follow-up CT scan with her which shows no evidence of recurrence or new disease. I also discussed the surveillance protocol after surgery for lung cancer which is a CT scan every 6 months for the 1st 2 years followed by yearly for 3 years after that. Each of the CT scans or followed up with a visit. She understands that and will get a CT scan in 1 year and follow up with me in the office after that. (2) Chest wall pain following surgery: Comment: THE PAIN IS MILD NEUROPATHIC , S/P RT. THORACOSTOMY . TX : CONTINUE TO USE TYLENOL 2 TABLETS Q.6 HOURS P.R.N.. AND ALSO APPLY A LIDOCAINE PATCH ONCE OR TWICE A DAY P.R.N. Code(s): R07.89 - Other chest pain; G89.18 - Other acute postprocedural pain Plan: Regarding her continued pain which seems to be chronic now burning and shooting pain over the 7th and 8th intercostal dermatomes. Again I discussed with her the possibility of a referral to interventional pain management and at this point she says she would agree could she does not want to go another year without any relief. She is however still able to do yd work and her daily activities. Orders: Orders CT chest wo IV con 11 Months C80.1 - Malignant (primary) neoplasm, unspecified Referrals Pain Management Referral G89.18 - Other acute postprocedural pain, R07.89 - Other chest pain Coding Level of Care Code Est Pt Level 4 (31054) Diagnoses Adenocarcinoma C80.1 Chest wall pain following surgery R07.89; G89.18
[2022-11-06 09:16] VITALS: BP 110/60; PULSE 62; O2SAT 98; BMI 17.4
== END 2022-11-06 09:26 | disposition home or self-care (01) ==
PROVIDERS: PCP Family Medicine; Visit Provider Surgery
DX: C80.1 Malignant (primary) neoplasm, unspecified (principal); R07.89 Other chest pain; G89.18 Other acute postprocedural pain

== ENCOUNTER → 2022-11-06 09:01 | Outpatient (BNVA) | payer MEDICARE, SELFPAY | PROVIDERS: PCP Family Medicine; Visit Provider Surgery | DX: C80.1 Malignant (primary) neoplasm, unspecified (principal); R07.89 Other chest pain; G89.18 Other acute postprocedural pain | CPT/HCPCS: 99212 ==

== ENCOUNTER 2022-11-12 09:20 | Outpatient (AMB) | payer MEDICARE, SELFPAY ==
[2022-11-12 09:36] VITALS: BP 102/62; PULSE 60; O2SAT 99; BMI 17.4
--- NOTE | 2022-11-12 09:36 | A.OFFVIS_ITS ---
Intake Vital Signs 11/12/22 09:36 Height 5 ft 1 in Weight 92 lb BMI 17.4 BP 102/62 Blood Pressure Location Lt brachial Position Sitting Pulse 60 Pulse Source Pulse Oximeter Pulse Oximetry (%) 99 Oxygen Delivery Method Room Air Intake Visit Reasons: copd Intake Note: pt is here for follow up and states her is breathing is good. Equal Opportunity Director Required: No Allergies aspirin [Aspirin] Allergy (Unknown, Verified 11/12/22 09:58) UNKNOWN codeine [CODEINE] Allergy (Unknown, Verified 11/12/22 09:58) ITCHING naproxen Allergy (Unknown, Verified 11/12/22 09:58) Unknown sodium hypochlorite solution [sodium hypochlorite] Allergy (Unknown, Verified 11/12/22 09:58) BLEACH-LIPS TIGHTEN Sulfa (Sulfonamide Antibiotics) Allergy (Unknown, Verified 11/12/22 09:58) Unknown trimethoprim [From Bactrim] Allergy (Unknown, Verified 11/12/22 09:58) Unknown cyanocobalamin (vitamin B12) Adverse Reaction (Intermediate, Verified 11/12/22 09:58) nausea Medication List - Last Reconciled 11/12/22 by Nile Her MD allopurinol 200 mg (2 x 100 mg) PO DAILY 90 days cholecalciferol (vitamin D3) 50 mcg PO DAILY 30 days cholecalciferol (vitamin D3) 50 mcg PO DAILY fluticasone propionate 50 mcg/actuation (Flonase Allergy Relief) 1 spray intranasal Q12H 30 days lidocaine HCl 1% 1 ea topical TID 30 days lisinopril 40 mg PO DAILY 90 days lorazepam 0.5 mg PO DAILY PRN 30 days omeprazole 20 mg PO DAILY 90 days sertraline 25 mg (1/2 x 50 mg) PO DAILY 90 days simvastatin 5 mg PO BEDTIME Do you need a note to return to daycare/school/sports/work: No HPI copd HPI Details THIS 82 YEARS OLD VERY PLEASANT FEMALE, COMES TODAY FOR HER YEARLY PULMONARY CHECKUP. SHE HAS A MILD DEGREE OF ONGOING INTERMITTENT COUGH, WHICH SOMETIMES GET WORSE USUALLY AT THE CHANGES IN THE WEATHER. SHE DOES ALL HER HOUSEHOLD ACTIVITIES WELL WORKS IN THE [place], WITH MILD SHORTNESS OF BREATH AND INTERMITTENT COUGH. SHE HAS NOT REQUIRED TO USE ANY MEDICATION FOR COUGH. AND SHE DENIES HAVING ANY WHEEZES. SHE WAS FOUND TO HAVE 2 SEPARATE ADENO CARCINOMAS , IN RIGHT UPPER LOBE AND RIGHT MIDDLE LOBE, IN 2019. SHE UNDERWENT RIGHT MIDDLE LOBECTOMY AND RIGHT UPPER LOBE SEGMENTECTOMY, VIA DAVINCI PROCEDURE, BY DR. VELÁSQUEZ , WHO IS FOLLOWING HER CLOSELY ? .? CT SCANS OF THE CHEST HAVE SHOWN NO RECURRENCE.? SHE DOES HAVE A 5 MM NODULE IN THE RIGHT LOWER LOBE WHICH IS BEING WATCHED. SHE CONTINUES TO HAVE PAIN OVER THE RIGHT MID CHEST AT 7TH AND 8TH INTERCOSTAL SPACE, THE PAIN SEEMS TO BE NEUROPATHIC, ALSO A SMALL KELOID SCAR IN THE INTERCOSTAL SPACE IS SENSITIVE. SHE IS CONTROLLING HER PAIN WITH THE APPLICATION OF A LOCAL ANALGESIC OINTMENT , WHICH SHE APPLIES P.R.N.. ?? [facility] Medical History Adenocarcinoma Alcohol abuse Allergic rhinitis Chest wall pain following surgery COPD (chronic obstructive pulmonary disease) Gout Hypercholesterolemia Hypertension Osteoporosis Type 2 diabetes mellitus with hyperglycemia Vitamin D deficiency Surgical History History of ankle surgery History of lobectomy of lung (~08/2019) Family History Father No problems noted. Mother No problems noted. Brother Bone cancer Social History Housing: Apartment Alcohol intake: current Alcohol intake frequency: a few times a week Patient Tobacco Use Status: Former Tobacco user e-Cigarette/Vaping Use: Never Used Second Hand Smoke Exposure: No service: No Current occupational status: retired Current occupational exposures/hazards: No Cognitive needs: No Hearing needs: No Vision needs: No Review of Systems Const All systems reviewed & are unremarkable except as noted in HPI and below Physical Exam Vital Signs: Last Vital Signs Pulse 60 11/12/22 09:36 BP 102/62 11/12/22 09:36 Pulse Ox 99 11/12/22 09:36 Oxygen Delivery Method Room Air 11/12/22 09:36 BMI result Body Mass Index 17.4 Const General: healthy appearing, comfortable, no acute distress, alert and awake Orientation/consciousness: patient oriented x3 HEENT Head: Yes normal to inspection General nose exam: No nasal polyps present and No nasal discharge present Face and sinus: Yes sinuses nontender Mouth: oropharynx normal Throat: Yes posterior oropharynx normal Eyes General: appearance normal, both eyes and all related structures Neck Neck: Yes normal visual inspection, Yes no lymphadenopathy, Yes trachea midline and Yes no JVD Thyroid: Thyroid normal Chest Chest palpation & inspection: normal inspection of the chest, normal palpation of entire chest wall and no tenderness Resp Auscultation: clear to auscultation bilaterally, no crackles and no wheezes Cardio Palpation: normal PMI Rate: regular rate Rhythm: regular rhythm Heart sounds: no gallops and no murmurs GI Palpation (GI): Soft to palpation, nontender, No hepatosplenomegaly present and no masses Auscultation: normal bowel sounds Back/Spine/Pelvis Thoracic/Lumbar Spine: thoracic and lumbar spine normal to inspection, thoraco- lumbar ROM limited and thoraco-lumbar spasm Skin General skin exam: no rashes or lesions noted Neuro General: patient oriented x3 and no focal motor deficits Cranial nerves: Yes CN's II-XII intact bilaterally Extrem General: Yes normal to inspection, Yes no clubbing, cyanosis or edema, Yes no calf tenderness, Yes venous stasis dermatitis and Yes other (MILD ARTHRITIC CHANGES IN WRIST JOINTS ) Psych Appearance: well kempt Mental Status: mental status grossly normal Speech and movement: Normal speech and movement present Assessment & Plan Assessment & Plan (1) Adenocarcinoma: Comment: August 2019 ADENOCA RT MIDDLE AND UPPER LOBE S/P RESECTION , NO RECURRENCE . SHE DOES HAVE CHRONIC NEUROPATHIC TYPE OF PAIN IN THE RIGHT MID CHEST, EASILY CONTROLLED WITH APPLICATION OF LOCAL ANALGESIC CREAM. Code(s): C80.1 - Malignant (primary) neoplasm, unspecified (2) Chest wall pain following surgery: Comment: THE PAIN IS MILD NEUROPATHIC , S/P RT. THORACOSTOMY . TX : CONTINUE TO USE TYLENOL 2 TABLETS Q.6 HOURS P.R.N.. AND ALSO APPLY A LIDOCAINE PATCH ONCE OR TWICE A DAY P.R.N. Code(s): R07.89 - Other chest pain; G89.18 - Other acute postprocedural pain (3) COPD (chronic obstructive pulmonary disease): Comment: COPD is mild , not symptomatic , does not need to use any inhalors . Code(s): J44.9 - Chronic obstructive pulmonary disease, unspecified Qualifiers: COPD type: emphysema Emphysema type: unspecified Qualified Code(s): J43.9 - Emphysema, unspecified Coding Level of Care Code Est Pt Level 3 (12434) Diagnoses Adenocarcinoma C80.1 Chest wall pain following surgery R07.89; G89.18 COPD (chronic obstructive pulmonary disease) J43.9 COPD type: emphysema Emphysema type: unspecified
== END 2022-11-12 09:56 | disposition home or self-care (01) ==
PROVIDERS: PCP Family Medicine; Visit Provider Internal Medicine
DX: C80.1 Malignant (primary) neoplasm, unspecified (principal); R07.89 Other chest pain; G89.18 Other acute postprocedural pain; J43.9 Emphysema, unspecified
CPT/HCPCS: 99213

== ENCOUNTER → 2022-11-12 09:20 | Outpatient (BNVA) | payer MEDICARE, SELFPAY | PROVIDERS: PCP Family Medicine; Visit Provider Internal Medicine | DX: C80.1 Malignant (primary) neoplasm, unspecified (principal); J43.9 Emphysema, unspecified; R07.89 Other chest pain; G89.18 Other acute postprocedural pain | CPT/HCPCS: 99212 ==

== ENCOUNTER 2022-11-17 08:23 | Outpatient (AMB) | payer MEDICARE, SELFPAY ==
--- NOTE | 2022-11-17 08:36 | MHC.PC.OV ---
Vital Signs 11/17/22 08:37 Height 5 ft 1 in Weight 98 lb 8 oz BMI 18.6 BP 112/68 Blood Pressure Location Lt brachial Position Sitting Pulse 53 Pulse Source Pulse Oximeter Pulse Oximetry (%) 99 Oxygen Delivery Method Room Air Intake Visit Reasons: f/u htn, pre-diabetes and elev. liver enzymes Intake Note: Patient is here for follow up on prediabetes, hypertnesion and liver enzymes. Patient would like to increase Sertraline to 1 a day. Allergies aspirin [Aspirin] Allergy (Unknown, Verified 11/17/22 08:38) UNKNOWN codeine [CODEINE] Allergy (Unknown, Verified 11/17/22 08:38) ITCHING naproxen Allergy (Unknown, Verified 11/17/22 08:38) Unknown sodium hypochlorite solution [sodium hypochlorite] Allergy (Unknown, Verified 11/17/22 08:38) BLEACH-LIPS TIGHTEN Sulfa (Sulfonamide Antibiotics) Allergy (Unknown, Verified 11/17/22 08:38) Unknown trimethoprim [From Bactrim] Allergy (Unknown, Verified 11/17/22 08:38) Unknown cyanocobalamin (vitamin B12) Adverse Reaction (Intermediate, Verified 11/17/22 08:38) nausea Tobacco use date assessed: 11/17/22 Fall risk assessment: 2 + Falls in past year Last assessed Fall Risk: 11/17/22 Dental Screening Dental Screen Date: 11/17/22 Did you have a dental visit in the last 12 months?: No Did you have a dental problem in the last 6 months where you did not have access to dental care?: No Was dental information given to patient?: Patient declined (Patient has dentures.) HPI f/u htn, pre-diabetes and elev. liver enzymes HPI Details 82 y/o female presents to f/u hypertension, pre-diabetes and elevated liver enzymes. No recent labs to review. Blood pressure today is 112/68. She is on lisinopril 40mg daily. A1c in 2020 had been 6.5%. A1c today 11/17/22 is 5.9% which had improved from 6.1% in June. HPI Comments History of Present Illness Details Documentation assistance for Chauncey Shafer MD, was provided by Zeferino Jack, Engine Cowling Installer on 11/17/2022 8:56 AM EST. I, Dr. Shafer, have read, observed, and verified documentation. [facility] Medical History Adenocarcinoma Alcohol abuse Allergic rhinitis Chest wall pain following surgery COPD (chronic obstructive pulmonary disease) Gout Hypercholesterolemia Hypertension Osteoporosis Type 2 diabetes mellitus with hyperglycemia Vitamin D deficiency Surgical History History of ankle surgery History of lobectomy of lung (~08/2019) Family History Father No problems noted. Mother No problems noted. Brother Bone cancer Social History Housing: Apartment Alcohol intake: current Alcohol intake frequency: a few times a week Patient Tobacco Use Status: Former Tobacco user e-Cigarette/Vaping Use: Never Used Second Hand Smoke Exposure: No service: No Current occupational status: retired Current occupational exposures/hazards: No Cognitive needs: No Hearing needs: No Vision needs: No Questionnaire RITESH-7 AMB Questionnaire RITESH-7 Date RITESH - 7 assessed: 06/13/21 Source: Developed by Drs. Dionicio Blanca, Norma Riddle, Sid Lr and colleagues, with an educational mitchell from [employer]. Review of Systems Const Denies chills, Denies fatigue, Denies fever(s), Denies headache(s) and Denies weakness ENT Denies dizziness and Denies headache(s) Card Denies dyspnea Resp Denies cough, Denies dyspnea, Denies wheezing and Denies other (shortness of breath) Musc Denies numbness and Denies tingling Neuro Denies dizziness, Denies headache(s), Denies numbness, Denies tingling and Denies weakness Psych Denies anxiety and Denies depression Endo Denies fatigue Aller/Immun Denies wheezing Physical exam (Primary Care) Vital Signs: Last Vital Signs Pulse 53 11/17/22 08:37 BP 112/68 11/17/22 08:37 Pulse Ox 99 11/17/22 08:37 Oxygen Delivery Method Room Air 11/17/22 08:37 BMI result Body Mass Index 18.6 Tobacco/Smoking Status: Tobacco use Status Tobacco use date assessed 11/17/22 11/17/22 08:46 Patient Tobacco Use Status Former Tobacco user 11/17/22 08:46 e-Cigarette/Vaping Use Never Used 11/17/22 08:46 Const General: well developed; No acute distress Nutritional Appearance: well nourished Orientation/consciousness: patient oriented x3 HENMT Head: Yes normocephalic and Yes atraumatic Eyes General: appearance normal, both eyes and all related structures Pupils: Equal, round and reactive pupils present EOM: EOMs intact bilaterally Resp Effort & Inspection: normal respiratory effort Auscultation: clear to auscultation bilaterally Cardio Rate: regular rate Rhythm: regular rhythm Heart sounds: S1 normal heart sound present, S2 normal heart sound present, no gallops, no murmurs and no rubs Neuro General: patient oriented x3 and gait normal Cranial nerves: Yes Equal, round and reactive pupils present Psych Affect: normal affect Results AMB Hemoglobin A1c AMB Hemoglobin A1c 5.9 % Last Edit by Siena Sr CMA on 11/17/22 09:02 Assessment and Plan Assessment & Plan (1) Hypertension: Comment: Stress test June 2016 Code(s): I10 - Essential (primary) hypertension Qualifiers: Hypertension type: essential hypertension Qualified Code(s): I10 - Essential (primary) hypertension Plan: Blood pressure is well controlled on lisinopril Goal is Less than 140/90 Continue current medication (2) Elevated liver enzymes: Code(s): R74.8 - Abnormal levels of other serum enzymes Plan: Liver enzymes have been elevated. Rechecking liver enzymes today Encouraged decreasing alcohol intake (3) Diet-controlled diabetes mellitus: Code(s): E11.9 - Type 2 diabetes mellitus without complications Plan: History of prior A1c to 6.5% though A1c was 6.1% in June and 5.9% today Diet-controlled diabetes Continue to work at a diet low in sugars and starches (4) Chest wall pain following surgery: Comment: THE PAIN IS MILD NEUROPATHIC , S/P RT. THORACOSTOMY . TX : CONTINUE TO USE TYLENOL 2 TABLETS Q.6 HOURS P.R.N.. AND ALSO APPLY A LIDOCAINE PATCH ONCE OR TWICE A DAY P.R.N. Code(s): R07.89 - Other chest pain; G89.18 - Other acute postprocedural pain Plan: Right thoracic wall pain since surgery. Has recently seen her thoracic surgeon and pulmonology. Likely scarring and possible nerve impingement. She is referred to pain management Orders: Orders Comprehensive Met. Panel Today R74.8 - Abnormal levels of other serum enzymes Uric Acid Today M10.9 - Gout, unspecified AMB Hemoglobin A1c Today Z13.9 - Encounter for screening, unspecified Coding Level of Care Code Est Pt Level 4 (19635) Diagnoses Hypertension I10 Hypertension type: essential hypertension Elevated liver enzymes R74.8 Diet-controlled diabetes mellitus E11.9 Chest wall pain following surgery R07.89; G89.18
[2022-11-17 08:37] VITALS: BP 112/68; PULSE 53; O2SAT 99; BMI 18.6
== END 2022-11-17 09:11 | disposition home or self-care (01) ==
PROVIDERS: PCP Family Medicine; Visit Provider Family Medicine
DX: I10 Essential (primary) hypertension (principal); R74.8 Abnormal levels of other serum enzymes; E11.9 Type 2 diabetes mellitus without complications; R07.89 Other chest pain; G89.18 Other acute postprocedural pain
CPT/HCPCS: 83036; 99214

== ENCOUNTER 2022-11-17 09:18 | Outpatient (REF) | payer MEDICARE, SELFPAY ==
[2022-11-17 12:01] LABS: Alanine Aminotransferase 19 U/L (0-31); Albumin Level 4.1 g/dL (3.5-5.0); Alkaline Phosphatase 55 U/L (39-117); Anion Gap 15 (12-20); Aspartate Amino Transferase 34 U/L (5-31); Bilirubin Total 0.6 mg/dL (0.0-1.0); Blood Urea Nitrogen 17 mg/dL (9-16); Calcium 9.5 mg/dL (8.4-10.2); Carbon Dioxide 25 mmol/L (22-29); Chloride 107 mmol/L (96-108); Estimated Glomerular Filt Rate > 60; Glucose Random 123 mg/dL (60-115); Potassium 4.9 mmol/L (3.3-5.1); Sodium 142 mmol/L (135-145); Total Protein 6.4 g/dL (6.5-8.0); Uric Acid 5.9 mg/dL (2.4-5.7)
== END 2022-11-17 09:19 | disposition home or self-care (01) ==
LOC: HO.WFDLDS 09:18
PROVIDERS: Visit Provider Family Medicine
DX: M10.9 Gout, unspecified (principal); R74.8 Abnormal levels of other serum enzymes
CPT/HCPCS: 36415; 80053; 84550

== ENCOUNTER 2022-12-08 09:16 | Outpatient (REF) | payer MEDICARE, SELFPAY ==
[2022-12-08 11:56] LABS: Appearance Urine Clear; Color Urine Yellow; Glucose Urine UA Negative (Negative); Leukocyte Esterase Urine Trace (Negative); Nitrite Urine Negative (Negative); Specific Gravity - Urine 1.015 (1.005-1.025); UMIC TRIGGER UA YES; Urine Blood Negative (Negative); Urine Ketones Negative (Negative); Urine Protein Negative (Neg-Trace)
[2022-12-08 11:58] LABS: Bacteria Urine 4+ (None Seen); Hyaline Casts Urine 0-2 /LPF (0-2); RBC Urine 0-2 /HPF (0-2); Squamous Epithelial Cell Urine 0-2 /HPF (0-2); WBC Urine 0-5 /HPF (0-5)
[2022-12-08 12:50] LABS: Creatinine Urine 41.16 mg/dL; Microalbum/Creatinine Ratio Ur 38.8 ug/mg cr (<30)
== END 2022-12-08 09:17 | disposition home or self-care (01) ==
LOC: HO.WFDLDS 09:16
PROVIDERS: Visit Provider Family Medicine
DX: Z00.00 Encounter for general adult medical examination without abnormal findings (principal); I10 Essential (primary) hypertension
CPT/HCPCS: 81001; 82043; 82570

== ENCOUNTER 2023-02-17 09:13 | Outpatient (AMB) | payer MEDICARE, SELFPAY ==
[2023-02-17 09:41] VITALS: BP 102/62; PULSE 50; RESP 20; O2SAT 98; BMI 18.0
--- NOTE | 2023-02-17 09:41 | A.OFFPC_ITS ---
Vital Signs 02/17/23 09:41 Height 5 ft 1 in Weight 95 lb 8 oz BMI 18.0 BP 102/62 Blood Pressure Location Lt brachial Position Sitting Respiration 20 Pulse 50 Pulse Source Pulse Oximeter Pulse Oximetry (%) 98 Oxygen Delivery Method Room Air Intake Visit Reasons: f/u hypertension, diabetes Allergies aspirin [Aspirin] Allergy (Unknown, Verified 11/17/22 08:38) UNKNOWN codeine [CODEINE] Allergy (Unknown, Verified 11/17/22 08:38) ITCHING naproxen Allergy (Unknown, Verified 11/17/22 08:38) Unknown sodium hypochlorite solution [sodium hypochlorite] Allergy (Unknown, Verified 11/17/22 08:38) BLEACH-LIPS TIGHTEN Sulfa (Sulfonamide Antibiotics) Allergy (Unknown, Verified 11/17/22 08:38) Unknown trimethoprim [From Bactrim] Allergy (Unknown, Verified 11/17/22 08:38) Unknown cyanocobalamin (vitamin B12) Adverse Reaction (Intermediate, Verified 11/17/22 08:38) nausea Medication List - Last Reconciled 02/17/23 by Chauncey Shafer MD allopurinol 200 mg (2 x 100 mg) PO DAILY 90 days cholecalciferol (vitamin D3) 50 mcg PO DAILY 30 days cholecalciferol (vitamin D3) 50 mcg PO DAILY fluticasone propionate 50 mcg/actuation (Flonase Allergy Relief) 1 spray intranasal Q12H 30 days lidocaine HCl 1% 1 ea topical TID 30 days lisinopril 40 mg PO DAILY 90 days lorazepam 0.5 mg PO DAILY PRN 30 days omeprazole 20 mg PO DAILY 90 days sertraline 25 mg (1/2 x 50 mg) PO DAILY 90 days simvastatin 5 mg PO BEDTIME Tobacco use date assessed: 11/17/22 HPI f/u hypertension, diabetes HPI Details 83 y/o female presents to f/u hypertensi on and diet-controlled diabetes. Last A1c 11/17/22 5.9%. A1c today 02/17/23 is 6.0%. Blood pressure today is 102/62. She is on lisinopril 40mg daily. Labs were drawn 11/17/22. Reviewed labs with pt. AST improved from 48 to 34. ALT improved from 45 to 19. She drinks wine daily. She reports she had recently lost her son. She does not have many people to talk to. PFSH Medical History Adenocarcinoma Alcohol abuse Allergic rhinitis Chest wall pain following surgery COPD (chronic obstructive pulmonary disease) Gout Hypercholesterolemia Hypertension Osteoporosis Type 2 diabetes mellitus with hyperglycemia Vitamin D deficiency Surgical History History of ankle surgery History of lobectomy of lung (~08/2019) Family History Father No problems noted. Mother No problems noted. Brother Bone cancer Social History Housing: Apartment Alcohol intake: current Alcohol intake frequency: a few times a week Patient Tobacco Use Status: Former Tobacco user e-Cigarette/Vaping Use: Never Used Second Hand Smoke Exposure: No service: No Current occupational status: retired Current occupational exposures/hazards: No Cognitive needs: No Hearing needs: No Vision needs: No Questionnaire RITESH-7 AMB Questionnaire RITESH-7 Date RITESH - 7 assessed: 06/13/21 Source: Developed by Drs. Dionicio Blanca, Norma Riddle, Sid Lr and colleagues, with an educational mitchell from [employer]. Review of Systems Const Denies chills, Denies fatigue, Denies fever(s), Denies headache(s) and Denies weakness ENT Denies dizziness and Denies headache(s) Card Denies chest pain, Denies lightheadedness, Denies dyspnea and Denies other (Palpitations) Resp Denies cough, Denies dyspnea, Denies wheezing and Denies other ( shortness of breath) Musc Denies numbness and Denies tingling Neuro Denies dizziness, Denies headache(s), Denies numbness, Denies tingling, Denies paresthesias and Denies weakness Psych Denies anxiety and Denies depression Endo Denies fatigue Aller/Immun Denies wheezing Physical exam (Primary Care) Vital Signs: Last Vital Signs Pulse 50 02/17/23 09:41 Resp 20 02/17/23 09:41 BP 102/62 02/17/23 09:41 Pulse Ox 98 02/17/23 09:41 Oxygen Delivery Method Room Air 02/17/23 09:41 BMI result Body Mass Index 18.0 Tobacco/Smoking Status: Tobacco use Status Tobacco use date assessed 11/17/22 02/17/23 09:42 Patient Tobacco Use Status Former Tobacco user 02/17/23 09:42 e-Cigarette/Vaping Use Never Used 02/17/23 09:42 Const General: no acute distress and well developed Nutritional Appearance: well nourished Orientation/consciousness: patient oriented x3 HENMT Head: Yes normocephalic and Yes atraumatic Eyes General: appearance normal, both eyes and all related structures Pupils: Equal, round and reactive pupils present EOM: EOMs intact bilaterally Resp Effort & Inspection: normal respiratory effort Auscultation: clear to auscultation bilaterally Cardio Rate: regular rate Rhythm: regular rhythm Heart sounds: S1 normal heart sound present, S2 normal heart sound present, no gallops, no murmurs and no rubs Neuro General: patient oriented x3 and gait normal Cranial nerves: Yes Equal, round and reactive pupils present Psych Affect: normal affect Assessment and Plan Assessment & Plan (1) Acute adjustment disorder: Code(s): F43.20 - Adjustment disorder, unspecified Plan: Patient's?son?passed?away?recently. S he?does?not?seem?to?have?very?good?family?supports?and?says?that?she?kalen?mainl y?by?doing?lots?of?work/chores. Offered?therapist?but?she?declines?this.??Discussed?medications?briefly?but?she? declines?these. I?let?her?know?these?things?are?available?and?she?can?let?me?know?if?she?changes ?her?mind. (2) Hypertension: Comment: Stress test June 2016 Code(s): I10 - Essential (primary) hypertension Qualifiers: Hypertension type: essential hypertension Qualified Code(s): I10 - Essential (primary) hypertension Plan: Blood?pressure?is?controlled.??Goal?is?less?than?140/90 Continue?current?medication?regimen (3) Diet-controlled diabetes mellitus: Code(s): E11.9 - Type 2 diabetes mellitus without complications Plan: A1c?6.0%.??Goal?is?less?than?7% Continue?diet?control (4) Elevated liver enzymes: Code(s): R74.8 - Abnormal levels of other serum enzymes Plan: Liver?enzymes?have?been?elevated?in?the?p ast.??She?drinks?wine?daily?and?says?she?has?increase?this?a?little?bit?due?to?t he?passing?of?her?son. Checking?liver?enzymes?with?next?blood?draw Orders: Orders Lipid Panel Today E78.00 - Pure hypercholesterolemia, unspecified, Z00.00 - Encounter for general adult medical examination without abnormal findings AMB Hemoglobin A1c Today Z13.9 - Encounter for screening, unspecified Comprehensive [place]. Panel Fast Today R74.8 - Abnormal levels of other serum enzymes, Z00.00 - Encounter for general adult medical examination without abnormal findings Coding Level of Care Code Est Pt Level 4 (47342) Diagnoses Acute adjustment disorder F43.20 Essential hypertension I10 Hypertension type: essential hypertension Diet-controlled diabetes mellitus E11.9 Elevated liver enzymes R74.8
== END 2023-02-17 10:24 | disposition home or self-care (01) ==
PROVIDERS: PCP Family Medicine; Visit Provider Family Medicine
DX: E11.9 Type 2 diabetes mellitus without complications (principal); F43.20 Adjustment disorder, unspecified; I10 Essential (primary) hypertension; R74.8 Abnormal levels of other serum enzymes
CPT/HCPCS: 83036; 99214

== ENCOUNTER 2023-02-17 10:15 | Outpatient (REF) | payer MEDICARE, SELFPAY ==
[2023-02-17 12:01] LABS: Alanine Aminotransferase 39 U/L (0-31); Albumin Level 3.9 g/dL (3.5-5.0); Alkaline Phosphatase 70 U/L (39-117); Anion Gap 12 (12-20); Aspartate Amino Transferase 60 U/L (5-31); Bilirubin Total 0.7 mg/dL (0.0-1.0); Blood Urea Nitrogen 16 mg/dL (9-16); Calcium 8.8 mg/dL (8.4-10.2); Carbon Dioxide 28 mmol/L (22-29); Chloride 104 mmol/L (96-108); Cholesterol 179 mg/dL (<200); Estimated Glomerular Filt Rate > 60; Glucose Fasting 103 mg/dL (60-99); HDL Cholesterol 66 mg/dL (>40); LDL Cholesterol Calculated 58 mg/dL (<100); Potassium 4.3 mmol/L (3.3-5.1); Sodium 140 mmol/L (135-145); Total Protein 6.6 g/dL (6.5-8.0); Triglycerides 279 mg/dL (<150)
== END 2023-02-17 10:16 | disposition home or self-care (01) ==
LOC: HO.WFDLDS 10:15
PROVIDERS: Visit Provider Family Medicine
DX: Z00.00 Encounter for general adult medical examination without abnormal findings (principal); R74.8 Abnormal levels of other serum enzymes; E78.00 Pure hypercholesterolemia, unspecified
CPT/HCPCS: 36415; 80053; 80061

== ENCOUNTER 2023-03-11 09:53 | Outpatient (REF) | payer MEDICARE, SELFPAY | END 2023-03-11 09:54 | disposition home or self-care (01) | LOC: HO.MAMMO 09:53 | PROVIDERS: PCP Family Medicine; Visit Provider Family Medicine | DX: Z12.31 Encounter for screening mammogram for malignant neoplasm of breast (principal) | CPT/HCPCS: 77063; 77067 ==

== ENCOUNTER → 2023-03-11 10:15 | Outpatient (BNV) | payer MEDICARE, SELFPAY | PROVIDERS: PCP Family Medicine; Visit Provider Radiology Diagnostic Radiology | DX: Z12.31 Encounter for screening mammogram for malignant neoplasm of breast (principal) | CPT/HCPCS: 77063; 77067 ==

== ENCOUNTER 2023-05-24 09:14 | Outpatient (AMB) | payer MEDICARE, SELFPAY ==
[2023-05-24 09:37] VITALS: BP 108/64; PULSE 60; RESP 13; TEMP 36.4; O2SAT 99; BMI 18.0
--- NOTE | 2023-05-24 09:37 | A.OFFPC_ITS ---
Vital Signs 05/24/23 09:37 Height 5 ft 1 in Weight 95 lb 8 oz BMI 18.0 BP 108/64 Blood Pressure Location Rt brachial Position Sitting Respiration 13 Pulse 60 Pulse Source Pulse Oximeter Temp 97.5 F Temp Source Temporal Artery Scan Pulse Oximetry (%) 99 Oxygen Delivery Method Room Air Intake Visit Reasons: f/u diabetes, htn, cholesterol and liver enzymes Intake Note: Patient would like a relief salesperson/ Hr Operations Advisor to come and spend time and help around the house. Silk Screen Printing Racker Required: No Accompanied by: Self / Same As Patient Allergies Seasonal Allergies Allergy (Intermediate, Verified 05/24/23 09:48) Itchy Eyes aspirin [Aspirin] Allergy (Unknown, Verified 05/24/23 09:48) UNKNOWN codeine [CODEINE] Allergy (Unknown, Verified 05/24/23 09:48) ITCHING naproxen Allergy (Unknown, Verified 05/24/23 09:48) Unknown sodium hypochlorite solution [sodium hypochlorite] Allergy (Unknown, Verified 05/24/23 09:48) BLEACH-LIPS TIGHTEN Sulfa (Sulfonamide Antibiotics) Allergy (Unknown, Verified 05/24/23 09:48) Unknown trimethoprim [From Bactrim] Allergy (Unknown, Verified 05/24/23 09:48) Unknown cyanocobalamin (vitamin B12) Adverse Reaction (Intermediate, Verified 05/24/23 09:48) nausea Tobacco use date assessed: 05/24/23 Fall risk assessment: 1 Fall in past year Last assessed Fall Risk: 05/24/23 Dental Screening Dental Screen Date: 05/24/23 Did you have a dental visit in the last 12 months?: No Did you have a dental problem in the last 6 months where you did not have access to dental care?: No Was dental information given to patient?: Patient declined HPI f/u diabetes, htn, cholesterol and liver enzymes HPI Details 83 y/o female presents to f/u diabetes, hypertension, HLD and liver enzymes. A1c today 05/24/23 is 6.3%. Diet controlled diabetes. Ongoing anxiety/depression. Pt reports ongoing bilateral hand pain. [facility] Medical History Osteoporosis Gout Vitamin D deficiency Alcohol abuse Hypercholesterolemia Hypertension Type 2 diabetes mellitus with hyperglycemia Allergic rhinitis Adenocarcinoma Chest wall pain following surgery COPD (chronic obstructive pulmonary disease) Surgical History History of lobectomy of lung (~08/2019) History of ankle surgery Family History Father No problems noted. Mother No problems noted. Brother Bone cancer Other Substance abuse Social History Housing: Apartment Alcohol intake: current Alcohol intake frequency: a few times a week Patient Tobacco Use Status: Former Tobacco user e-Cigarette/Vaping Use: Never Used Second Hand Smoke Exposure: No service: No Current occupational status: retired Current occupational exposures/hazards: No Cognitive needs: No Hearing needs: No Vision needs: No Questionnaire PHQ-9 Over the last 2 weeks, how often have you been bothered by any of the following problems? 1. Little interest or pleasure in doing things: not at all 2. Feeling down, depressed, or hopeless: several days 3. Trouble falling or staying asleep, or sleeping too much: several days 4. Feeling tired or having little energy: several days 5. Poor appetite or overeating: more than half the days 6. Feeling bad about yourself - or that you are a failure or have let yourself or your family down: several days 7. Trouble concentrating on things, such as reading the newspaper or watching television: several days 8. Moving or speaking so slowly that other people could have noticed. Or the opposite - being so fidgety or restless that you have been moving around a lot more than usual: not at all 9. Thoughts that you would be better off or of hurting yourself in some way: not at all Total score: 7 Depression Screening Interpretation: Positive Depression Screening Done: Yes 37499 - PHQ-9 Billing: Yes Source: Developed by Drs. Dionicio Blanca, Norma Riddle, Sid Lr and colleagues, with an educational mitchell from [employer]. RITESH-7 AMB Questionnaire RITESH-7 Date RITESH - 7 assessed: 05/24/23 Feeling nervous, anxious, or on edge: 1 = Several days Not being able to stop or control worryin = Several days Worrying too much about different things: 1 = Several days Trouble relaxin = Several days Being so restless that it is hard to sit still: 1 = Several days Becoming easily annoyed or irritable: 1 = Several days Feeling afraid as if something awful might happen: 1 = Several days Total RITESH-7 score (0-4 normal; 5-9 mild; 10-14 moderate; 15-21 severe): 7 Source: Developed by Drs. Dionicio Blanca, Norma Riddle, Sid Lr and colleagues, with an educational mitchell from [employer]. RITESH-7 Assessment Billing RITESH-7 Assessment Tool: RITESH-7 Assessment 26556 Review of Systems Const Denies chills, Denies fatigue, Denies fever(s), Denies headache(s) and Denies weakness ENT Denies dizziness and Denies headache(s) Card Denies chest pain, Denies lightheadedness, Denies dyspnea and Denies other (Palpitations) Resp Denies cough, Denies dyspnea, Denies wheezing and Denies other ( shortness of breath) Musc Denies numbness and Denies tingling Neuro Denies dizziness, Denies headache(s), Denies numbness, Denies tingling, Denies paresthesias and Denies weakness Psych Denies anxiety and Denies depression Endo Denies fatigue Aller/Immun Denies wheezing Physical exam (Primary Care) Vital Signs: Last Vital Signs Temp 97.5 F 05/24/23 09:37 Pulse 60 05/24/23 09:37 Resp 13 05/24/23 09:37 BP 108/64 05/24/23 09:37 Pulse Ox 99 05/24/23 09:37 Oxygen Delivery Method Room Air 05/24/23 09:37 BMI result Body Mass Index 18.0 Tobacco/Smoking Status: Tobacco use Status Tobacco use date assessed 05/24/23 05/24/23 09:55 Patient Tobacco Use Status Former Tobacco user 05/24/23 09:44 e-Cigarette/Vaping Use Never Used 05/24/23 09:44 PHQ-9: PHQ-9 Score PHQ-9: Total score 7 05/24/23 10:00 Depression Screening Interpretation: Positive Const General: no acute distress and well developed Nutritional Appearance: well nourished Orientation/consciousness: patient oriented x3 HENMT Head: Yes normocephalic and Yes atraumatic Eyes General: appearance normal, both eyes and all related structures Pupils: Equal, round and reactive pupils present EOM: EOMs intact bilaterally Resp Effort & Inspection: normal respiratory effort Auscultation: clear to auscultation bilaterally Cardio Rate: regular rate Rhythm: regular rhythm Heart sounds: S1 normal heart sound present, S2 normal heart sound present, no gallops, no murmurs and no rubs Neuro General: patient oriented x3 and gait normal Cranial nerves: Yes Equal, round and reactive pupils present Psych Affect: normal affect Results AMB Hemoglobin A1c AMB Hemoglobin A1c 6.3 % Last Edit by Alia Meraz MA on 05/24/23 10:08 Assessment and Plan Assessment & Plan (1) Diet-controlled diabetes mellitus: Code(s): E11.9 - Type 2 diabetes mellitus without complications Plan: A1c?6.3%?is?good?control.??Goal?is?less?than?7.0% Continue?to?work?at?a?diet?low?in?starches?and?sugars. (2) Hypertension: Comment: Stress test June 2016 Code(s): I10 - Essential (primary) hypertension Qualifiers: Hypertension type: essential hypertension Qualified Code(s): I10 - Essential (primary) hypertension Plan: Blood?pressure?is?controlled.??Goal?is?less?than?140/90 Continue?current?medication?regimen (3) Hypercholesterolemia: Code(s): E78.00 - Pure hypercholesterolemia, unspecified Plan: TC,?LDL?and?HDL?are?okay?on?simvastatin. Triglycerides?are?a?little?high. Continue?simvastatin?and?work?at?a?diet?low?in?saturated?fats?and?cholesterol.?? Also?watching?sugars?as?above. (4) Depression with anxiety: Code(s): F41.8 - Other specified anxiety disorders Plan: Fairly?well?controlled?with?sertraline.??She?is?taking?50?mg?daily. She?can?try?75?mg?daily She?also?has?some?difficulty?with?sleeping?and?can?try?hydroxyzine?p.r.n. Discussed?having?a?SIDING STAPLER?come?to?her?home?but?she?declines?this.??We?can?readdress ?at?a?subsequent?visit. (5) Arthritis of both hands: Code(s): M19.041 - Primary osteoarthritis, right hand; M19.042 - Primary osteoarthritis, left hand Plan: Arthritis?and?likely?some?tendinitis,?bilateral?hands. Does?not?tolerate?ibuprofen?or?naproxen. Using?topicals?which?are?not?helping?much. Referred?to?Rheumatology. Orders: Orders AMB Hemoglobin A1c Today E11.65 - Type 2 diabetes mellitus with hyperglycemia Referrals Rheumatology Referral M19.041 - Primary osteoarthritis, right hand, M19.042 - Primary osteoarthritis, left hand Medications: New hydroxyzine HCl 50 mg PO BEDTIME 30 days PRN 12 tabs 1RF sleep/anxiety Changed From sertraline 25 mg (1/2 x 50 mg) PO DAILY 90 days 45 tabs 3RF F32.9 - Major depressive disorder, single episode, unspecified, F41.9 - Anxiety disorder, unspecified To sertraline 75 mg (1.5 x 50 mg) PO DAILY 90 days 135 tabs 3RF F32.9 - Major depressive disorder, single episode, unspecified, F41.9 - Anxiety disorder, unspecified Coding Level of Care Code Est Pt Level 4 (07452) Diagnoses Diet-controlled diabetes mellitus E11.9 Essential hypertension I10 Hypertension type: essential hypertension Hypercholesterolemia E78.00 Depression with anxiety F41.8 Arthritis of both hands M19.041; M19.042 Additional Codes RITESH-7 Assessment Billing - RITESH-7 Assessment Tool: RITESH-7 Assessment [id number] ([id number])
== END 2023-05-24 10:50 | disposition home or self-care (01) ==
PROVIDERS: PCP Family Medicine; Visit Provider Family Medicine
DX: E11.9 Type 2 diabetes mellitus without complications (principal); E11.65 Type 2 diabetes mellitus with hyperglycemia; I10 Essential (primary) hypertension; E78.00 Pure hypercholesterolemia, unspecified; F41.8 Other specified anxiety disorders; M19.041 Primary osteoarthritis, right hand; M19.042 Primary osteoarthritis, left hand
CPT/HCPCS: 83036; 96127; 99214

== ENCOUNTER 2023-07-01 08:24 | Outpatient (AMB) | payer MEDICARE, SELFPAY ==
--- NOTE | 2023-07-01 08:26 | MHC.OFFVIS ---
Vital Signs 07/01/23 08:36 Height 5 ft 1 in Weight 92 lb 5.979 oz BMI 17.5 BP 134/70 Blood Pressure Location Rt brachial Position Sitting Pulse 70 Pulse Source Pulse Oximeter Pulse Oximetry (%) 97 Oxygen Delivery Method Room Air Intake Visit Reasons: Bilat hand OA Intake Note: New patient, internally referred, presents today for nhi hand oa. Only reports right thumb pain for approx 1 year. Last seen by Dr. Mirza Oct, 2020 for gout. 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 Required: No Accompanied by: Self / Same As Patient Allergies Seasonal Allergies Allergy (Intermediate, Verified 07/01/23 08:28) Itchy Eyes aspirin [Aspirin] Allergy (Unknown, Verified 07/01/23 08:) UNKNOWN codeine [CODEINE] Allergy (Unknown, Verified 07/01/23 08:) ITCHING naproxen Allergy (Unknown, Verified 07/01/23 08:) Unknown sodium hypochlorite solution [sodium hypochlorite] Allergy (Unknown, Verified 07/01/23 08:) BLEACH-LIPS TIGHTEN Sulfa (Sulfonamide Antibiotics) Allergy (Unknown, Verified 07/01/23 08:28) Unknown trimethoprim [From Bactrim] Allergy (Unknown, Verified 07/01/23 08:) Unknown cyanocobalamin (vitamin B12) Adverse Reaction (Intermediate, Verified 07/01/23 08:) nausea HPI Comments Details: Ms. Tobias 83yoF here for follow-up for gout and OA after a long absence. Last seen once in October 2020. She is by herself today and recall is challenging. She does not remember any recent gout flares but complains of thumb pain, especially to the right thumb. The patient has a very thin frame. Continues to with alcohol as outlined below. 10/[address] Mirza: 80yoF referred by her PCP presents for follow-up of gout. Seen once in September 2020. Presents for follow-up of initial testing. Reports pain and swelling in her R knee for approximately 1 week. Was seen by her PCP and given Indomethacin for gout but has not taken it yet. From last visit: Patient is accompanied by her daughter. per daughter, patient has been experiencing episodes of joint pain and swelling that have occurred in multiple joints for the last year and a half. States that each time an attack has occurred, it is treated with prednisone and a few days after she stops the prednisone, the attack recurs. These attacks that happen in her hands, ankles, feet. Patient does not know her family history but states her children do not have gout. Patient denies any personal history of kidney stones. She eats seafood on an almost daily basis and also drinks alcohol on a daily basis, mostly vodka. patient also reports an episode of multiple falls today before coming in for her appointment. She states she fell approximately 5 times at home. Denies any injuries. Denies any loss of consciousness. States this is new for her, she does not fall often. [facility] Medical History Osteoporosis Gout Vitamin D deficiency Alcohol abuse Hypercholesterolemia Hypertension Type 2 diabetes mellitus with hyperglycemia Allergic rhinitis Adenocarcinoma Chest wall pain following surgery COPD (chronic obstructive pulmonary disease) Surgical History History of lobectomy of lung (~08/2019) History of ankle surgery Family History Father No problems noted. Mother No problems noted. Brother Bone cancer Other Substance abuse Social History Housing: Apartment Alcohol intake: current Alcohol intake frequency: a few times a week Patient Tobacco Use Status: Former Tobacco user e-Cigarette/Vaping Use: Never Used Second Hand Smoke Exposure: No service: No Current occupational status: retired Current occupational exposures/hazards: No Cognitive needs: No Hearing needs: No Vision needs: No Review of Systems Const All systems reviewed & are unremarkable except as noted in HPI and below Physical Exam Vital Signs: Last Vital Signs Pulse 70 07/01/23 08:36 BP 134/70 07/01/23 08:36 Pulse Ox 97 07/01/23 08:36 Oxygen Delivery Method Room Air 07/01/23 08:36 BMI result Body Mass Index 17.5 Vital signs reviewed. Constitutional: No acute distress. undernourished and thin HEENT: Normocephalic and atraumatic. External auditory canals without erythema or edema bilaterally. Dry mucous membranes. No pharyngeal erythema or exudates. Skin: Warm and dry. No rashes or lesions noted. Neck: Full and painless range of motion. No cervical lymphadenopathy. Cardio: Regular rate and rhythm. No murmurs, gallops, or rubs. No lower extremity edema. No JVD. Pulmonary: No respiratory distress. No accessory muscle usage. Musculoskeletal: Normal range of motion in joints throughout the body. No deformity or other signs of injury. Tenderness with palpation to right CMC joint. Neuro: Alert and oriented x3. Cranial nerves 2-12 grossly intact. No focal deficits appreciated. Const General: cooperative, healthy appearing and no acute distress Nutritional Appearance: well nourished Orientation/consciousness: patient oriented x3 HEENT Head: Yes normal to inspection Resp Effort & Inspection: normal respiratory effort and able to speak in complete sentences Neuro General: patient oriented x3 Extrem Other: No synovitis on exam Psych Appearance: grossly normal Speech and movement: Clear speech present Results Reviewed Results Reviewed: Laboratory Tests 07/01/23 09:49 WBC 4.7 L RBC 3.87 L Hgb 12.8 Hct 37.7 ESR 7 Creatinine 0.94 Uric Acid 9.8 H Calcium 9.7 D AST 45 H ALT 38 H C-Reactive Protein 0.10 IgG Total 799 IgA Total 240 IgM 85 Assessment & Plan Assessment & Plan (1) Arthritis of both hands: Code(s): M19.041 - Primary osteoarthritis, right hand; M19.042 - Primary osteoarthritis, left hand Category: Medical (2) Gout: Code(s): M10.9 - Gout, unspecified Category: Medical Qualifiers: Chronicity: chronic Gout etiology: idiopathic Gout site: multiple sites Presence of tophus: without tophus Qualified Code(s): M1A.09X0 - Idiopathic chronic gout, multiple sites, without tophus (tophi) Plan Ms. Tobias here for evaluation of arthritis and pain in hands thought to be gout. The patient was on gout treatment many years ago but had stopped and not continue to follow-up. We will obtain some labs to evaluate for elevated uric acid and elevated ESR CRP. We will consider to start allopurinol if uric acid level is elevated. She does still drink a fair amount of alcohol so we will be sure to monitor her liver and kidney function while on allopurinol. I spent 40 reviewing history minutes evaluating patient, and documenting Follow-up in 4 months Orders: Orders Comprehensive Met. Panel 07/01/23 M19.041 - Primary osteoarthritis, right hand, M19.042 - Primary osteoarthritis, left hand, M10.9 - Gout, unspecified C Reactive Protein 07/01/23 M19.041 - Primary osteoarthritis, right hand, M19.042 - Primary osteoarthritis, left hand, M10.9 - Gout, unspecified Immunoglobulins,IgG IgA IgM 07/01/23 M19.041 - Primary osteoarthritis, right hand, M19.042 - Primary osteoarthritis, left hand, M10.9 - Gout, unspecified Immunofixation Pnl, Serum 07/01/23 M19.041 - Primary osteoarthritis, right hand, M19.042 - Primary osteoarthritis, left hand, M10.9 - Gout, unspecified Protein Electrophoresis, Serum 07/01/23 M19.041 - Primary osteoarthritis, right hand, M19.042 - Primary osteoarthritis, left hand, M10.9 - Gout, unspecified Erythrocyte Sedimentation Rate 07/01/23 M19.041 - Primary osteoarthritis, right hand, M19.042 - Primary osteoarthritis, left hand, M10.9 - Gout, unspecified Complete Blood Count Auto Diff 07/01/23 M19.041 - Primary osteoarthritis, right hand, M19.042 - Primary osteoarthritis, left hand, M10.9 - Gout, unspecified Uric Acid 07/01/23 M19.041 - Primary osteoarthritis, right hand, M19.042 - Primary osteoarthritis, left hand, M10.9 - Gout, unspecified Medications: New diclofenac sodium 1% apply to hand and thunb for pain 2 grams topical QID 100 grams 0RF M19.041 - Primary osteoarthritis, right hand, M19.042 - Primary osteoarthritis, left hand
[2023-07-01 08:36] VITALS: BP 134/70; PULSE 70; O2SAT 97; BMI 17.5
== END 2023-07-01 09:22 | disposition home or self-care (01) ==
PROVIDERS: PCP Family Medicine; Visit Provider Nurse Practitioner Family
DX: M19.041 Primary osteoarthritis, right hand (principal); M19.042 Primary osteoarthritis, left hand; M1A.09X0 Idiopathic chronic gout, multiple sites, without tophus (tophi)
CPT/HCPCS: 99214

== ENCOUNTER 2023-07-01 08:24 | Outpatient (REF) | payer MEDICARE, SELFPAY ==
[2023-07-01 09:54] LABS: MANUAL DIFF FLAG NO
[2023-07-01 10:32] LABS: Basophils Absolute Auto 0.1 X10*3/uL (0.0-0.2); Basophils Percent Auto 1.5 % (0-2); Eosinophils Absolute Auto 0.2 X10*3/uL (0.0-0.4); Hematocrit 37.7 % (37.0-47.0); Hemoglobin 12.8 g/dl (12.0-16.0); Imm Gran Abs Auto 0.02 X10*3/uL (0.00-0.03); Imm Gran Pct Auto 0.4 % (0.0-0.4); Lymphocytes Absolute Auto 1.7 X10*3/uL (1.2-4.9); Lymphocytes Percent Auto 35.9 % (20-40); Mean Corpuscular Hemoglobin 33.1 pg (27.0-33.0); Mean Corpuscular Volume 97.4 fL (80.0-98.0); Mean Platelet Volume 9.1 fL (9.4-12.3); Monocytes Absolute Auto 0.3 X10*3/uL (0.1-1.2); Monocytes Percent Auto 6.5 % (2-11); Neutrophils Absolute Auto 2.5 x10*3/uL (2.0-8.3); Neutrophils Percent Auto 51.7 % (45-73); Platelet Count 205 X10*3/uL (160-400); Red Blood Count 3.87 X10*6/uL (4.20-5.50); Red Cell Distribution Width 11.6 % (11.0-16.0); White Blood Count 4.7 X10*3/uL (4.8-10.8)
[2023-07-01 11:28] LABS: Erythrocyte Sedimentation Rate 7 MM/HR (0-20)
[2023-07-01 11:36] LABS: Alanine Aminotransferase 38 U/L (0-31); Albumin Level 4.6 g/dL (3.5-5.0); Alkaline Phosphatase 78 U/L (39-117); Anion Gap 14 (12-20); Aspartate Amino Transferase 45 U/L (5-31); Bilirubin Total 0.6 mg/dL (0.0-1.0); Blood Urea Nitrogen 22 mg/dL (9-16); Calcium 9.7 mg/dL (8.4-10.2); Carbon Dioxide 27 mmol/L (22-29); Chloride 103 mmol/L (96-108); Estimated Glomerular Filt Rate 57; Glucose Random 117 mg/dL (60-115); Potassium 4.9 mmol/L (3.3-5.1); Sodium 139 mmol/L (135-145); Total Protein 7.6 g/dL (6.5-8.0); Uric Acid 9.8 mg/dL (2.4-5.7)
[2023-07-02 22:18] LABS: Prot Elec - Albumin 4.8 g/dL (3.8-4.8); Prot Elec - Alpha1 0.2 g/dL (0.2-0.3); Prot Elec - Alpha2 0.6 g/dL (0.5-0.9); Prot Elec - Beta 1 0.4 g/dL (0.4-0.6); Prot Elec - Beta 2 0.3 g/dL (0.2-0.5); Prot Elec - Gamma 0.7 g/dL (0.8-1.7)
[2023-07-05 15:14] LABS: IgA 240 mg/dL (70-320); IgG 799 mg/dL (600-1540); IgM 85 mg/dL (50-300)
== END 2023-07-01 08:25 | disposition home or self-care (01) ==
LOC: HO.LAB 08:24
PROVIDERS: PCP Family Medicine; Visit Provider Nurse Practitioner Family
DX: M19.041 Primary osteoarthritis, right hand (principal); M19.042 Primary osteoarthritis, left hand; M1A.09X0 Idiopathic chronic gout, multiple sites, without tophus (tophi)
CPT/HCPCS: 36415; 80053; 82784; 84165; 84550; 85025; 85652; 86140; 86334; 99212

== ENCOUNTER 2023-10-20 12:24 | Outpatient (AMB) | payer MEDICARE, SELFPAY ==
[2023-10-20 13:30] VITALS: BP 110/64; PULSE 86; O2SAT 96; BMI 16.2
--- NOTE | 2023-10-20 13:30 | MHC.OFFVIS ---
Vital Signs 10/20/23 13:30 Height 5 ft 1 in Weight 86 lb BMI 16.2 BP 110/64 Blood Pressure Location Lt brachial Position Sitting Pulse 86 Pulse Source Pulse Oximeter Pulse Oximetry (%) 96 Oxygen Delivery Method Room Air Intake Visit Reasons: copd Intake Note: pt is here for follow up and states she does get short of breath at times, but works all the time around the house. 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 Required: No Allergies Seasonal Allergies Allergy (Intermediate, Verified 10/20/23 13:45) Itchy Eyes aspirin [Aspirin] Allergy (Unknown, Verified 10/20/23 13:45) UNKNOWN codeine [CODEINE] Allergy (Unknown, Verified 10/20/23 13:45) ITCHING naproxen Allergy (Unknown, Verified 10/20/23 13:45) Unknown sodium hypochlorite solution [sodium hypochlorite] Allergy (Unknown, Verified 10/20/23 13:45) BLEACH-LIPS TIGHTEN Sulfa (Sulfonamide Antibiotics) Allergy (Unknown, Verified 10/20/23 13:45) Unknown trimethoprim [From Bactrim] Allergy (Unknown, Verified 10/20/23 13:45) Unknown cyanocobalamin (vitamin B12) Adverse Reaction (Intermediate, Verified 10/20/23 13:45) nausea Medication List - Last Reconciled 10/20/23 by Nile Her MD allopurinol 200 mg (2 x 100 mg) PO DAILY 90 days cholecalciferol (vitamin D3) 50 mcg PO DAILY diclofenac sodium 1% 2 grams topical QID fluticasone propionate 50 mcg/actuation (Flonase Allergy Relief) 1 spray intranasal Q12H 30 days hydroxyzine HCl 50 mg PO BEDTIME PRN 30 days lidocaine HCl 1% 1 ea topical TID 30 days lisinopril 40 mg PO DAILY 90 days lorazepam 0.5 mg PO DAILY PRN 30 days omeprazole 20 mg PO DAILY 90 days sertraline 75 mg (1.5 x 50 mg) PO DAILY 90 days simvastatin 5 mg PO BEDTIME Do you need a note to return to daycare/school/sports/work: No HPI HPI copd: Details: 81-year-old woman status post Davinci right middle lobectomy and right upper lobe posterior segmentectomy for 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 She was being followed by Dr. Moody on a yearly basis, and has had yearly CT scan, last one in September 2022 which showed no recurrence. She needs yearly surveillance for [address] Moody has moved to [facility], and does not come here in [place], she has come for follow-up. She has a minimal degree of reactive airways, has albuterol HFA on hand but has never used it. She has occasional nasal congestion especially in the summer months when she works outdoors. She has Flonase which she uses only off and on. She has good appetite. Sleeps well. Eats very good, however her weight stays down because she is physically active. [facility] Medical History Osteoporosis Gout Vitamin D deficiency Alcohol abuse Hypercholesterolemia Hypertension Type 2 diabetes mellitus with hyperglycemia Allergic rhinitis Adenocarcinoma Chest wall pain following surgery COPD (chronic obstructive pulmonary disease) Surgical History History of lobectomy of lung (~08/2019) History of ankle surgery Family History Father No problems noted. Mother No problems noted. Brother Bone cancer Other Substance abuse Social History Housing: Apartment Alcohol intake: current Alcohol intake frequency: a few times a week Patient Tobacco Use Status: Former Tobacco user e-Cigarette/Vaping Use: Never Used Second Hand Smoke Exposure: No service: No Current occupational status: retired Current occupational exposures/hazards: No Cognitive needs: No Hearing needs: No Vision needs: No Review of Systems Const All systems reviewed & are unremarkable except as noted in HPI and below Physical Exam Vital Signs: Last Vital Signs Pulse 86 10/20/23 13:30 BP 110/64 10/20/23 13:30 Pulse Ox 96 10/20/23 13:30 Oxygen Delivery Method Room Air 10/20/23 13:30 BMI result Body Mass Index 16.2 Const General: healthy appearing, comfortable, no acute distress, alert and awake Orientation/consciousness: patient oriented x3 HEENT Head: Yes normal to inspection General nose exam: No nasal polyps present and No nasal discharge present Face and sinus: Yes sinuses nontender Mouth: oropharynx normal Throat: Yes posterior oropharynx normal Eyes General: appearance normal, both eyes and all related structures Neck Neck: Yes normal visual inspection, Yes no lymphadenopathy, Yes trachea midline and Yes no JVD Thyroid: Thyroid normal Chest Chest palpation & inspection: normal inspection of the chest, normal palpation of entire chest wall and no tenderness Resp Auscultation: clear to auscultation bilaterally, no crackles and no wheezes Cardio Palpation: normal PMI Rate: regular rate Rhythm: regular rhythm Heart sounds: no gallops and no murmurs GI Palpation (GI): Soft to palpation, nontender, No hepatosplenomegaly present and no masses Auscultation: normal bowel sounds Back/Spine/Pelvis Thoracic/Lumbar Spine: thoracic and lumbar spine normal to inspection, thoraco-lumbar ROM limited and thoraco-lumbar spasm Skin General skin exam: no rashes or lesions noted Neuro General: patient oriented x3 and no focal motor deficits Cranial nerves: Yes CN's II-XII intact bilaterally Extrem General: Yes normal to inspection, Yes no clubbing, cyanosis or edema, Yes no calf tenderness, Yes venous stasis dermatitis and Yes other (MILD ARTHRITIC CHANGES IN WRIST JOINTS ) Psych Appearance: well kempt Mental Status: mental status grossly normal Speech and movement: Normal speech and movement present Assessment & Plan Assessment & Plan (1) COPD (chronic obstructive pulmonary disease): Comment: COPD is mild , not symptomatic , does not need to use any inhalors . Code(s): J44.9 - Chronic obstructive pulmonary disease, unspecified Category: Medical Qualifiers: COPD type: emphysema Emphysema type: unspecified Qualified Code(s): J43.9 - Emphysema, unspecified Plan: Advised to keep albuterol HFA 1 inhaler on hand and use, only if there is any attack of wheezing or shortness of breath. (2) Adenocarcinoma: Comment: August 2019 ADENOCA RT MIDDLE AND UPPER LOBE S/P RESECTION , NO RECURRENCE . SHE DOES HAVE CHRONIC NEUROPATHIC TYPE OF PAIN IN THE RIGHT MID CHEST, EASILY CONTROLLED WITH APPLICATION OF LOCAL ANALGESIC CREAM. Code(s): C80.1 - Malignant (primary) neoplasm, unspecified Category: Medical Plan: She needs yearly CT scan for surveillance, which is ordered. , (3) Allergic rhinitis: Comment: Very mild intermittent Code(s): J30.9 - Allergic rhinitis, unspecified Category: Medical Plan: Flonase nasal spray 1 or 2 spray in each nostril daily only p.r.n. (4) Chest wall pain following surgery: Comment: THE PAIN IS MILD NEUROPATHIC , S/P RT. THORACOSTOMY AND HAS ALMOST RESOLVED. Code(s): R07.89 - Other chest pain; G89.18 - Other acute postprocedural pain Category: Medical Plan: MAY TAKE TYLENOL 2 TABLETS Q 6 HOURS P.R.N. IF THERE IS RECURRENCE OF PAIN Orders: Orders CT chest wo IV con Today C80.1 - Malignant (primary) neoplasm, unspecified, J43.9 - Emphysema, unspecified Coding Level of Care Code Est Pt Level 3 (55812) Diagnoses Pulmonary emphysema, unspecified emphysema type J43.9 COPD type: emphysema Emphysema type: unspecified Adenocarcinoma C80.1 Allergic rhinitis J30.9 Chest wall pain following surgery R07.89; G89.18
== END 2023-10-20 13:51 | disposition home or self-care (01) ==
PROVIDERS: PCP Family Medicine; Visit Provider Internal Medicine
DX: J43.9 Emphysema, unspecified (principal); C80.1 Malignant (primary) neoplasm, unspecified; J30.9 Allergic rhinitis, unspecified; R07.89 Other chest pain; G89.18 Other acute postprocedural pain
CPT/HCPCS: 99213

== ENCOUNTER → 2023-10-20 12:24 | Outpatient (BNVA) | payer MEDICARE, SELFPAY | PROVIDERS: PCP Family Medicine; Visit Provider Internal Medicine | DX: J43.9 Emphysema, unspecified (principal); J30.9 Allergic rhinitis, unspecified; R07.89 Other chest pain; G89.18 Other acute postprocedural pain; C80.1 Malignant (primary) neoplasm, unspecified | CPT/HCPCS: 99212 ==

== ENCOUNTER 2023-11-09 11:51 | Outpatient (AMB) | payer MEDICARE, SELFPAY ==
--- NOTE | 2023-11-09 12:02 | MHC.PC.OV ---
Vital Signs 11/09/23 12:04 Height 5 ft 1 in Weight 87 lb 8 oz BMI 16.5 BP 110/58 L Blood Pressure Location Rt brachial Position Sitting Respiration 12 Pulse 68 Pulse Source Pulse Oximeter Temp 98 F Temp Source Tympanic Pulse Oximetry (%) 98 Oxygen Delivery Method Room Air Intake Visit Reasons: follow up diabetes Intake Note: DM follow up Allergies Seasonal Allergies Allergy (Intermediate, Verified 11/09/23 12:03) Itchy Eyes aspirin [Aspirin] Allergy (Unknown, Verified 11/09/23 12:03) UNKNOWN codeine [CODEINE] Allergy (Unknown, Verified 11/09/23 12:03) ITCHING naproxen Allergy (Unknown, Verified 11/09/23 12:03) Unknown sodium hypochlorite solution [sodium hypochlorite] Allergy (Unknown, Verified 11/09/23 12:03) BLEACH-LIPS TIGHTEN Sulfa (Sulfonamide Antibiotics) Allergy (Unknown, Verified 11/09/23 12:03) Unknown trimethoprim [From Bactrim] Allergy (Unknown, Verified 11/09/23 12:03) Unknown cyanocobalamin (vitamin B12) Adverse Reaction (Intermediate, Verified 11/09/23 12:03) nausea Medication List - Last Reconciled 11/09/23 by Chauncey Shafer MD allopurinol 200 mg (2 x 100 mg) PO DAILY 90 days cholecalciferol (vitamin D3) 50 mcg PO DAILY diclofenac sodium 1% 2 grams topical QID fluticasone propionate 50 mcg/actuation (Flonase Allergy Relief) 1 spray intranasal Q12H 30 days hydroxyzine HCl 50 mg PO BEDTIME PRN 30 days lidocaine HCl 1% 1 ea topical TID 30 days lisinopril 40 mg PO DAILY 90 days lorazepam 0.5 mg PO DAILY PRN 30 days omeprazole 20 mg PO DAILY 90 days sertraline 75 mg (1.5 x 50 mg) PO DAILY 90 days simvastatin 5 mg PO BEDTIME Tobacco use date assessed: 05/24/23 Dental Screening Dental Screen Date: 05/24/23 HPI follow up diabetes HPI Details 83 y/o female presents to f/u diabetes, hypertension, and chronic conditions including anxiety. Last A1c 05/24/23 6.3%. Diet controlled diabetes. A1c today 11/09/23 6.1%. Blood pressure today 110/58. She is on lisinopril 40mg daily. She continues taking allopurinol for gout. Has not had any gout flare-ups since June. Pt reports falls the past few months. HPI Comments History of Present Illness Details Documentation assistance for Chauncey Shafer MD, was provided by Zeferino Jack,? Agile Project Manager on 11/09/2023 at 12:38 PM EST. I, Dr. Shafer, have read, observed, and verified documentation. [facility] Medical History Osteoporosis Gout Vitamin D deficiency Alcohol abuse Hypercholesterolemia Hypertension Type 2 diabetes mellitus with hyperglycemia Allergic rhinitis Adenocarcinoma Chest wall pain following surgery COPD (chronic obstructive pulmonary disease) Surgical History History of lobectomy of lung (~08/2019) History of ankle surgery Family History Father No problems noted. Mother No problems noted. Brother Bone cancer Other Substance abuse Social History Housing: Apartment Alcohol intake: current Alcohol intake frequency: a few times a week Patient Tobacco Use Status: Former Tobacco user e-Cigarette/Vaping Use: Never Used Second Hand Smoke Exposure: No service: No Current occupational status: retired Current occupational exposures/hazards: No Cognitive needs: No Hearing needs: No Vision needs: No Questionnaire RITESH-7 AMB Questionnaire RITESH-7 Date RITESH - 7 assessed: 05/24/23 Source: Developed by Drs. Dionicio Blanca, Norma Riddle, Sid Lr and colleagues, with an educational mitchell from [employer]. Review of Systems Const Denies chills, Denies fatigue, Denies fever(s), Denies headache(s) and Denies weakness ENT Denies dizziness and Denies headache(s) Card Denies dyspnea Resp Denies cough, Denies dyspnea, Denies wheezing and Denies other (shortness of breath) Musc Denies numbness and Denies tingling Neuro Denies dizziness, Denies headache(s), Denies numbness, Denies tingling and Denies weakness Psych Denies anxiety and Denies depression Endo Denies fatigue Aller/Immun Denies wheezing Physical exam (Primary Care) Vital Signs: Last Vital Signs Temp 98 F 11/09/23 12:04 Pulse 68 11/09/23 12:04 Resp 12 11/09/23 12:04 BP 110/58 L 11/09/23 12:04 Pulse Ox 98 11/09/23 12:04 Oxygen Delivery Method Room Air 11/09/23 12:04 BMI result Body Mass Index 16.5 Tobacco/Smoking Status: Tobacco use Status Tobacco use date assessed 05/24/23 11/09/23 12:07 Patient Tobacco Use Status Former Tobacco user 11/09/23 12:07 e-Cigarette/Vaping Use Never Used 11/09/23 12:07 Const General: well developed; No acute distress Nutritional Appearance: underweight Orientation/consciousness: patient oriented x3 HENMT Head: Yes normocephalic and Yes atraumatic Eyes General: appearance normal, both eyes and all related structures Pupils: Equal, round and reactive pupils present EOM: EOMs intact bilaterally Resp Effort & Inspection: normal respiratory effort Auscultation: clear to auscultation bilaterally Cardio Rate: regular rate Rhythm: regular rhythm Heart sounds: S1 normal heart sound present, S2 normal heart sound present, no gallops, no murmurs and no rubs Neuro General: patient oriented x3 and No gait normal Cranial nerves: Yes Equal, round and reactive pupils present Cognition (Neuro): abnormal cognition Psych Affect: normal affect Assessment and Plan Assessment & Plan (1) Diet-controlled diabetes mellitus: Code(s): E11.9 - Type 2 diabetes mellitus without complications Plan: Diet-controlled?diabetes. A1c?is?6.1%.??Good?control Continue?diet?control (2) Hypertension: Comment: Stress test June 2016 Code(s): I10 - Essential (primary) hypertension Qualifiers: Hypertension type: essential hypertension Qualified Code(s): I10 - Essential (primary) hypertension Plan: Blood?pressure?is?controlled.??Goal?is?less?than?140/90 Continue?current?medication (3) Gout: Code(s): M10.9 - Gout, unspecified Qualifiers: Chronicity: chronic Gout etiology: idiopathic Gout site: multiple sites Presence of tophus: without tophus Qualified Code(s): M1A.09X0 - Idiopathic chronic gout, multiple sites, without tophus (tophi) Plan: Patient?is?now?on?allopurinol?and?followed?by?rheumatology Follow-up?as?recommended (4) Multiple falls: Code(s): R29.6 - Repeated falls Plan: Recommended?physical?therapy?but?patient?declines?this. She?also?denies?any?vision?changes. She?can?let?me?know?if?she?wants?to?do?more?to?try?to?mitigate?falls (5) Lower extremity weakness: Code(s): R29.898 - Other symptoms and signs involving the musculoskeletal system Plan: As?above,?recommended?physical?therapy (6) Unsteady gait: Code(s): R26.81 - Unsteadiness on feet Plan: As?above (7) Underweight: Code(s): R63.6 - Underweight Plan: Patient?is?underweight?and?is?aware?of?this.??She?notes?that?she?struggles?to?get?enough?food?that?does?not?bother?her?stomach. Has?difficulty?with?high-protein?diets?and?also?with?milk?products Continue?working?at?regular?meals Will?continue?to?monitor?her?weight?which?although?low?is?currently?steady. Coding Level of Care Code Est Pt Level 4 (71142) Diagnoses Diet-controlled diabetes mellitus E11.9 Essential hypertension I10 Hypertension type: essential hypertension Idiopathic chronic gout of multiple sites without tophus M1A.09X0 Chronicity: chronic Gout etiology: idiopathic Gout site: multiple sites Presence of tophus: without tophus Multiple falls R29.6 Lower extremity weakness R29.898 Unsteady gait R26.81 Underweight R63.6
[2023-11-09 12:04] VITALS: BP 110/58; PULSE 68; RESP 12; TEMP 36.6; O2SAT 98; BMI 16.5
== END 2023-11-09 12:45 | disposition home or self-care (01) ==
PROVIDERS: PCP Family Medicine; Visit Provider Family Medicine
DX: E11.9 Type 2 diabetes mellitus without complications (principal); I10 Essential (primary) hypertension; M1A.09X0 Idiopathic chronic gout, multiple sites, without tophus (tophi); R29.6 Repeated falls; R29.898 Other symptoms and signs involving the musculoskeletal system; R26.81 Unsteadiness on feet; R63.6 Underweight
CPT/HCPCS: 99214

== ENCOUNTER 2024-02-10 11:36 | Outpatient (AMB) | payer MEDICARE, SELFPAY ==
--- NOTE | 2024-02-10 11:58 | A.OFFPC_ITS ---
Vital Signs 02/10/24 12:01 Height 5 ft 1 in Weight 89 lb 8 oz BMI 16.9 BP 110/50 L Blood Pressure Location Rt brachial Position Sitting Respiration 18 Pulse 66 Pulse Source Pulse Oximeter Pulse Oximetry (%) 96 Oxygen Delivery Method Room Air Intake Visit Reasons: f/u diabetes, HTN, chronic conditions Intake Note: f/u DM,HTN and chronic conditions Allergies Seasonal Allergies Allergy (Intermediate, Verified 02/10/24 11:59) Itchy Eyes aspirin [Aspirin] Allergy (Unknown, Verified 02/10/24 11:59) UNKNOWN codeine [CODEINE] Allergy (Unknown, Verified 02/10/24 11:59) ITCHING naproxen Allergy (Unknown, Verified 02/10/24 11:59) Unknown sodium hypochlorite solution [sodium hypochlorite] Allergy (Unknown, Verified 02/10/24 11:59) BLEACH-LIPS TIGHTEN Sulfa (Sulfonamide Antibiotics) Allergy (Unknown, Verified 02/10/24 11:59) Unknown trimethoprim [From Bactrim] Allergy (Unknown, Verified 02/10/24 11:59) Unknown cyanocobalamin (vitamin B12) Adverse Reaction (Intermediate, Verified 02/10/24 11:59) nausea Medication List - Last Reconciled 02/10/24 by Chauncey Shafer MD allopurinol 200 mg (2 x 100 mg) PO DAILY 90 days cholecalciferol (vitamin D3) 50 mcg PO DAILY diclofenac sodium 1% 2 grams topical QID fluticasone propionate 50 mcg/actuation (Flonase Allergy Relief) 1 spray intranasal Q12H 30 days hydroxyzine HCl 50 mg PO BEDTIME PRN 30 days lidocaine HCl 1% 1 ea topical TID 30 days lisinopril 40 mg PO DAILY 90 days lorazepam 0.5 mg PO DAILY PRN 30 days omeprazole 20 mg PO DAILY 90 days sertraline 75 mg (1.5 x 50 mg) PO DAILY 90 days simvastatin 5 mg PO BEDTIME Tobacco use date assessed: 05/24/23 Dental Screening Dental Screen Date: 05/24/23 HPI f/u diabetes, HTN, chronic conditions HPI Details 84 y/o female presents to f/u diet contr olled diabetes, hypertension and chronic conditions. Last A1c 11/09/23 6.1%. A1c today 02/10/24 is 5.7%. Blood pressure today is 110/50, 66p. She is on lisinopril 40mg daily. They report vomiting/diarrhea. Complaints of wound of R bojorquez. [facility] Medical History Osteoporosis Gout Vitamin D deficiency Alcohol abuse Hypercholesterolemia Hypertension Type 2 diabetes mellitus with hyperglycemia Allergic rhinitis Adenocarcinoma Chest wall pain following surgery COPD (chronic obstructive pulmonary disease) Surgical History History of lobectomy of lung (~08/2019) History of ankle surgery Family History Father No problems noted. Mother No problems noted. Brother Bone cancer Other Substance abuse Social History Housing: Apartment Alcohol intake: current Alcohol intake frequency: a few times a week Patient Tobacco Use Status: Former Tobacco user e-Cigarette/Vaping Use: Never Used Second Hand Smoke Exposure: No service: No Current occupational status: retired Current occupational exposures/hazards: No Cognitive needs: No Hearing needs: No Vision needs: No Questionnaire RITESH-7 AMB Questionnaire RITESH-7 Date RITESH - 7 assessed: 05/24/23 Source: Developed by Drs. Dionicio Blanca, Norma Riddle, Sid Lr and colleagues, with an educational mitchell from [employer]. Review of Systems Const Denies chills, Denies fatigue, Denies fever(s), Denies headache(s) and Denies weakness ENT Denies dizziness and Denies headache(s) Card Denies dyspnea Resp Denies cough, Denies dyspnea, Denies wheezing and Denies other (shortness of breath) GI Reports diarrhea and Reports vomiting Musc Denies numbness and Denies tingling Skin/Breast Reports wounds (R bojorquez) Neuro Denies dizziness, Denies headache(s), Denies numbness, Denies tingling and Denies weakness Psych Denies anxiety and Denies depression Endo Denies fatigue Aller/Immun Denies wheezing Physical exam (Primary Care) Vital Signs: Last Vital Signs Pulse 66 02/10/24 12:01 Resp 18 02/10/24 12:01 BP 110/50 L 02/10/24 12:01 Pulse Ox 96 11/21/24 12:01 Oxygen Delivery Method Room Air 02/10/24 12:01 BMI result Body Mass Index 16.9 Tobacco/Smoking Status: Tobacco use Status Tobacco use date assessed 05/24/23 02/10/24 12:09 Patient Tobacco Use Status Former Tobacco user 02/10/24 12:09 e-Cigarette/Vaping Use Never Used 02/10/24 12:09 Const General: well developed; No acute distress Nutritional Appearance: underweight Orientation/consciousness: patient oriented x3 HENMT Head: Yes normocephalic and Yes atraumatic Eyes General: appearance normal, both eyes and all related structures Pupils: Equal, round and reactive pupils present EOM: EOMs intact bilaterally Resp Effort & Inspection: normal respiratory effort Neuro General: patient oriented x3 and gait normal Cranial nerves: Yes Equal, round and reactive pupils present Psych Affect: normal affect Coding Level of Care Code Est Pt Level 4 (93747) Diagnoses Essential hypertension I10 Hypertension type: essential hypertension Diet-controlled diabetes mellitus E11.9 Wound of skin T14.8XXA Vomiting and diarrhea R11.10; R19.7 Assessment & Plan Assessment & Plan (1) Hypertension: Comment: Stress test June 2016 Code(s): I10 - Essential (primary) hypertension Category: Medical Qualifiers: Hypertension type: essential hypertension Qualified Code(s): I10 - Essential (primary) hypertension Plan: Blood?pressure?is?controlled.??Goal?is?less?than?140/90 She?is?uncertain?if?she?is?taking?lisinopril?currently Advised?her?to?continue?current?regimen.??Will?get?a?telemedicine for?early ?next?week?to?review?her?medications. Will?continue?lisinopril?if?she?is?currently?taking?it (2) Diet-controlled diabetes mellitus: Code(s): E11.9 - Type 2 diabetes mellitus without complications Category: Medical Plan: A1c?is?5.7%.??Goal?is?less?than?7% Continue?diet?control (3) Wound of skin: Code(s): T14.8XXA - Other injury of unspecified body region, initial encounter Category: Medical Plan: Wound?at?right?bojorquez Appears?mildly?infected Start?cephalexin Watch?for?S/S?worsening?infection (4) Vomiting and diarrhea: Code(s): R11.10 - Vomiting, unspecified; R19.7 - Diarrhea, unspecified Category: Medical Plan: Hydrate?well Decreased?alcohol?intake Check?stool?studies Referred?to?Gastroenterology Orders: Orders GI Panel Today R11.10 - Vomiting, unspecified, R19.7 - Diarrhea, unspecified Referrals Gastroenterology Referral R11.10 - Vomiting, unspecified, R19.7 - Diarrhea, unspecified Medications: New cephalexin 500 mg PO Q12H 10 days 20 caps 0RF
[2024-02-10 12:01] VITALS: BP 110/50; PULSE 66; RESP 18; O2SAT 96; BMI 16.9
== END 2024-02-10 12:59 | disposition home or self-care (01) ==
PROVIDERS: PCP Family Medicine; Visit Provider Family Medicine
DX: I10 Essential (primary) hypertension (principal); E11.9 Type 2 diabetes mellitus without complications; T14.8XXA Other injury of unspecified body region, initial encounter; R11.10 Vomiting, unspecified; R19.7 Diarrhea, unspecified

== ENCOUNTER → 2024-02-10 11:36 | Outpatient (BNVA) | payer MEDICARE, SELFPAY | PROVIDERS: PCP Family Medicine; Visit Provider Family Medicine | DX: I10 Essential (primary) hypertension (principal); E11.9 Type 2 diabetes mellitus without complications; T14.8XXA Other injury of unspecified body region, initial encounter; R11.10 Vomiting, unspecified; R19.7 Diarrhea, unspecified | CPT/HCPCS: 99212 ==

== ENCOUNTER 2024-02-14 11:40 | Outpatient (AMB) | payer MEDICARE, SELFPAY ==
--- NOTE | 2024-02-14 09:24 | A.OFFPC_ITS ---
Intake Visit Reasons: f/u meds via telemedicine Intake Note: f/u meds Allergies Seasonal Allergies Allergy (Intermediate, Verified 02/14/24 09:24) Itchy Eyes aspirin [Aspirin] Allergy (Unknown, Verified 02/14/24 09:24) UNKNOWN codeine [CODEINE] Allergy (Unknown, Verified 02/14/24 09:24) ITCHING naproxen Allergy (Unknown, Verified 02/14/24 09:24) Unknown sodium hypochlorite solution [sodium hypochlorite] Allergy (Unknown, Verified 02/14/24 09:24) BLEACH-LIPS TIGHTEN Sulfa (Sulfonamide Antibiotics) Allergy (Unknown, Verified 02/14/24 09:24) Unknown trimethoprim [From Bactrim] Allergy (Unknown, Verified 02/14/24 09:24) Unknown cyanocobalamin (vitamin B12) Adverse Reaction (Intermediate, Verified 02/14/24 09:24) nausea Medication List - Last Reconciled 02/14/24 by Chauncey Shafer MD allopurinol 200 mg (2 x 100 mg) PO DAILY 90 days cephalexin 500 mg PO Q12H 10 days cholecalciferol (vitamin D3) 50 mcg PO DAILY diclofenac sodium 1% 2 grams topical QID hydroxyzine HCl 50 mg PO BEDTIME PRN 30 days lidocaine HCl 1% 1 ea topical TID 30 days lisinopril 40 mg PO DAILY 90 days lorazepam 0.5 mg PO DAILY PRN 30 days omeprazole 20 mg PO DAILY 90 days sertraline 75 mg (1.5 x 50 mg) PO DAILY 90 days simvastatin 5 mg PO BEDTIME Tobacco use date assessed: 05/24/23 Dental Screening Dental Screen Date: 05/24/23 HPI f/u meds via telemedicine HPI Details 84 y/o female presents to review meds vi a telemedicine. Notes she has not been taking lisinopril 40mg daily. Blood pressure at last office visit had been fine. They do not have a BP monitor at home. Has not been taking her allopurinol for gout. [facility] Medical History Osteoporosis Gout Vitamin D deficiency Alcohol abuse Hypercholesterolemia Hypertension Type 2 diabetes mellitus with hyperglycemia Allergic rhinitis Adenocarcinoma Chest wall pain following surgery COPD (chronic obstructive pulmonary disease) Surgical History History of lobectomy of lung (~08/2019) History of ankle surgery Family History Father No problems noted. Mother No problems noted. Brother Bone cancer Other Substance abuse Social History Housing: Apartment Alcohol intake: current Alcohol intake frequency: a few times a week Patient Tobacco Use Status: Former Tobacco user e-Cigarette/Vaping Use: Never Used Second Hand Smoke Exposure: No service: No Current occupational status: retired Current occupational exposures/hazards: No Cognitive needs: No Hearing needs: No Vision needs: No Questionnaire RITESH-7 AMB Questionnaire RITESH-7 Date RITESH - 7 assessed: 05/24/23 Source: Developed by Drs. Dionicio Blanca, Norma Riddle, Sid Lr and colleagues, with an educational mitchell from [employer]. Review of Systems Const Denies chills, Denies fatigue, Denies fever(s), Denies headache(s) and Denies weakness ENT Denies dizziness and Denies headache(s) Card Denies dyspnea Resp Denies cough, Denies dyspnea, Denies wheezing and Denies other (shortness of breath) Musc Denies numbness and Denies tingling Neuro Denies dizziness, Denies headache(s), Denies numbness, Denies tingling and Denies weakness Psych Denies anxiety and Denies depression Endo Denies fatigue Aller/Immun Denies wheezing Physical exam (Primary Care) Tobacco/Smoking Status: Tobacco use Status Tobacco use date assessed 05/24/23 02/14/24 09:27 Patient Tobacco Use Status Former Tobacco user 02/14/24 09:27 e-Cigarette/Vaping Use Never Used 02/14/24 09:27 Telehealth Telehealth Telehealth Platform: Telephone Location of provider rendering services: practice address Location of patient: address on file Patient Identification confirmed using: Name, : Yes Telehealth method: voice only Patient verbally consented to treatment: Yes Patient verbally consented to billing insurance company: Yes Patient informed of any privacy concerns related to visit: Yes Minutes spent on Phone/Video with Pt.: 11 Coding Level of Care Code Tele Est Pt Level 2 (47676) Diagnoses Essential hypertension I10 Hypertension type: essential hypertension History of gout Z87.39 Assessment & Plan Assessment & Plan (1) Hypertension: Comment: Stress test June 2016 Code(s): I10 - Essential (primary) hypertension Category: Medical Qualifiers: Hypertension type: essential hypertension Qualified Code(s): I10 - Essential (primary) hypertension Plan: Blood?pressure?at?last?visit?appeared?controlled?and?patient?says?she?has?not?be en?taking?lisinopril?4?weeks?prior?to?this?measurement She?can?hold?off?on?taking?lisinopril. Her?daughter?will?get?her? a?blood?pressure?monitor?and?let?me?know?if?blood?pressures?are?consistently?gre ater?than?140/90 (2) History of gout: Code(s): Z87.39 - Personal history of other diseases of the musculoskeletal system and connective tissue Category: Medical Plan: Patient?has?not?been?taking?allopurinol No?recent?gout?flare-ups Will?remove?allopurinol?from?med?list.??She?will?not?take?this?at?present. Can?check?uric?acid?level?with?her?blood?draw Plan Reviewed?med?list?with?patient?and?daughter.??Removed?all?medications. Patient?has?not?picked?up?cephalexin?for?skin?mood?and?do?so?today. They?will?let?me?know?if?wound?is?not?healing. They?will?pick?up?containers?for?stool?studies. We?will?follow- up?on?lab?work?and?stool?studies?by?telemedicine?in?a?couple?of?weeks Orders: Orders Hemoglobin A1c Today E11.65 - Type 2 diabetes mellitus with hyperglycemia, R73.01 - Impaired fasting glucose Uric Acid Today Z87.39 - Personal history of other diseases of the musculoskeletal system and connective tissue Comprehensive Met. Panel Today Z87.39 - Personal history of other diseases of the musculoskeletal system and connective tissue Complete Blood Count Auto Diff Today T14.8XXA - Other injury of unspecified body region, initial encounter, Z00.00 - Encounter for general adult medical examination without abnormal findings Microalbumin, Random (w Creat) Today I10 - Essential (primary) hypertension Medications: Refilled hydroxyzine HCl 50 mg PO BEDTIME 30 days PRN 12 tabs 1RF sleep/anxiety Discontinued lorazepam Discontinued Reason: Doctor's Order 0.5 mg PO DAILY 30 days PRN 30 tabs 0RF Anxiety lidocaine HCl 1% Discontinued Reason: Doctor's Order 1 ea topical TID 30 days 226 grams 0RF allopurinol Discontinued Reason: Doctor's Order 200 mg (2 x 100 mg) PO DAILY 90 days 180 tabs 2RF M10.9 - Gout, unspecified lisinopril Discontinued Reason: Doctor's Order 40 mg PO DAILY 90 days 90 tabs 3RF
== END 2024-02-14 16:46 | disposition home or self-care (01) ==
LOC: HO.HMCFM 11:40
PROVIDERS: PCP Family Medicine; Visit Provider Family Medicine
DX: I10 Essential (primary) hypertension (principal); Z87.39 Personal history of other diseases of the musculoskeletal system and connective tissue

== ENCOUNTER 2024-03-31 13:44 | Outpatient (REF) | payer MEDICARE, SELFPAY | END 2024-03-31 13:45 | disposition home or self-care (01) | LOC: HO.MAMMO 13:44 | PROVIDERS: PCP Family Medicine; Visit Provider Family Medicine | DX: Z12.31 Encounter for screening mammogram for malignant neoplasm of breast (principal) | CPT/HCPCS: 77063; 77067 ==

== ENCOUNTER → 2024-03-31 14:15 | Outpatient (BNV) | payer MEDICARE, SELFPAY | PROVIDERS: PCP Family Medicine; Visit Provider Internal Medicine | DX: Z12.31 Encounter for screening mammogram for malignant neoplasm of breast (principal) | CPT/HCPCS: 77063; 77067 ==

== ENCOUNTER 2024-09-05 10:35 | Outpatient (AMB) | payer MEDICARE, MEDICAID, SELFPAY ==
[2024-09-05 10:43] VITALS: BP 130/64; PULSE 79; O2SAT 98; BMI 15.8
--- NOTE | 2024-09-05 10:43 | A.OFFVIS_ITS ---
Vital Signs 09/05/24 10:43 Height 5 ft 1 in Weight 83 lb 12.41 oz BMI 15.8 BP 130/64 Blood Pressure Location Lt brachial Position Sitting Pulse 79 Pulse Source Pulse Oximeter Pulse Oximetry (%) 98 Oxygen Delivery Method Room Air Intake Visit Reasons: COPD Intake Note: pt is here for follow up and states she is good right now, but night timeime her nose drips all night long, she only sleeps about 3 hours a night Specialty Trimmer Required: No Allergies Seasonal Allergies Allergy (Intermediate, Verified 09/05/24 10:47) Itchy Eyes aspirin [Aspirin] Allergy (Unknown, Verified 09/05/24 10:47) UNKNOWN codeine [CODEINE] Allergy (Unknown, Verified 09/05/24 10:47) ITCHING naproxen Allergy (Unknown, Verified 09/05/24 10:47) Unknown sodium hypochlorite solution [sodium hypochlorite] Allergy (Unknown, Verified 09/05/24 10:47) BLEACH-LIPS TIGHTEN Sulfa (Sulfonamide Antibiotics) Allergy (Unknown, Verified 09/05/24 10:47) Unknown trimethoprim [From Bactrim] Allergy (Unknown, Verified 09/05/24 10:47) Unknown cyanocobalamin (vitamin B12) Adverse Reaction (Intermediate, Verified 09/05/24 10:47) nausea Medication List - Last Reconciled 09/05/24 by Nile Her MD cholecalciferol (vitamin D3) 50 mcg PO DAILY diclofenac sodium 1% 2 grams topical QID hydroxyzine HCl 50 mg PO BEDTIME PRN 30 days omeprazole 20 mg PO DAILY 90 days sertraline 75 mg (1.5 x 50 mg) PO DAILY 90 days simvastatin 5 mg PO BEDTIME Do you need a note to return to daycare/school/sports/work: No HPI HPI COPD: Details: This 84 years old very pleasant female comes to visit after almost 1 year. She has only mild occasional cough and gets short of breath if she walks up hill or fast. Otherwise she has been very stable. Does not use any inhaler at this time. Because of her history of right lobectomy and right upper lobe segmentectomy for 2 separate malignant nodules in 2019, she comes for follow-up. She used to be followed up by thoracic surgeon Dr. Luis Sapp , who has now moved to [facility] and she does not want to travel to [place]. She has had no weight loss. [facility] Medical History Osteoporosis Gout Vitamin D deficiency Alcohol abuse Hypercholesterolemia Hypertension Type 2 diabetes mellitus with hyperglycemia Allergic rhinitis Adenocarcinoma Chest wall pain following surgery COPD (chronic obstructive pulmonary disease) Surgical History History of lobectomy of lung (~08/2019) History of ankle surgery Family History Father No problems noted. Mother No problems noted. Brother Bone cancer Other Substance abuse Social History Housing: Apartment Alcohol intake: current Alcohol intake frequency: a few times a week Patient Tobacco Use Status: Former Tobacco user e-Cigarette/Vaping Use: Never Used Second Hand Smoke Exposure: No service: No Current occupational status: retired Current occupational exposures/hazards: No Cognitive needs: No Hearing needs: No Vision needs: No Review of Systems Const Denies chills, Denies fatigue, Denies fever(s), Denies headache(s) and Denies weakness ENT Denies dizziness and Denies headache(s) Card Denies dyspnea Resp Denies cough, Denies dyspnea, Denies wheezing and Denies other (shortness of breath) Musc Denies numbness and Denies tingling Neuro Denies dizziness, Denies headache(s), Denies numbness, Denies tingling and Denies weakness Psych Denies anxiety and Denies depression Endo Denies fatigue Aller/Immun Denies wheezing Physical Exam Vital Signs: Last Vital Signs Pulse 79 09/05/24 10:43 BP 130/64 09/05/24 10:43 Pulse Ox 98 09/05/24 10:43 Oxygen Delivery Method Room Air 09/05/24 10:43 BMI result Body Mass Index 15.8 Const General: healthy appearing, comfortable, no acute distress, alert and awake Orientation/consciousness: patient oriented x3 HEENT Head: Yes normal to inspection General nose exam: No nasal polyps present and No nasal discharge present Face and sinus: Yes sinuses nontender Mouth: oropharynx normal Throat: Yes posterior oropharynx normal Eyes General: appearance normal, both eyes and all related structures Neck Neck: Yes normal visual inspection, Yes no lymphadenopathy, Yes trachea midline and Yes no JVD Thyroid: Thyroid normal Chest Chest palpation & inspection: normal inspection of the chest, normal palpation of entire chest wall and no tenderness Resp Auscultation: clear to auscultation bilaterally, no crackles and no wheezes Cardio Palpation: normal PMI Rate: regular rate Rhythm: regular rhythm Heart sounds: no gallops and no murmurs GI Palpation (GI): Soft to palpation, nontender, No hepatosplenomegaly present and no masses Auscultation: normal bowel sounds Back/Spine/Pelvis Thoracic/Lumbar Spine: thoracic and lumbar spine normal to inspection, thoraco- lumbar ROM limited and thoraco-lumbar spasm Skin General skin exam: no rashes or lesions noted Neuro General: patient oriented x3 and no focal motor deficits Cranial nerves: Yes CN's II-XII intact bilaterally Extrem General: Yes normal to inspection, Yes no clubbing, cyanosis or edema, Yes no calf tenderness, Yes venous stasis dermatitis and Yes other (MILD ARTHRITIC CHANGES IN WRIST JOINTS ) Psych Appearance: well kempt Mental Status: mental status grossly normal Speech and movement: Normal speech and movement present Results Reviewed Results Reviewed: 10/25/23 CT SCAN OF THE CHEST AT [facility] SHOWED, A 5 MM NODULE IN RIGHT LOWER LOBE, NEW , AND SHE WAS SUPPOSED TO HAVE A FOLLOW- UP CT SCAN AFTER 6 MONTHS. Assessment & Plan Assessment & Plan (1) COPD (chronic obstructive pulmonary disease): Comment: COPD is mild , not symptomatic , does not need to use any inhalors . Code(s): J44.9 - Chronic obstructive pulmonary disease, unspecified Category: Medical Qualifiers: COPD type: emphysema Emphysema type: unspecified Qualified Code(s): J43.9 - Emphysema, unspecified Plan: ADVISE THAT SHE SHOULD WALK SLOW BUT STAY ACTIVE, DO DEEP BREATHING EXERCISES 2 OR 3 TIMES A DAY. (2) Allergic rhinitis: Comment: Very mild intermittent Code(s): J30.9 - Allergic rhinitis, unspecified Category: Medical Plan: DOES NOT NEED ANY ANTIHISTAMINICS (3) Adenocarcinoma: Comment: August 2019 ADENOCA RT MIDDLE AND UPPER LOBE S/P RESECTION , NO RECURRENCE . SHE DOES HAVE CHRONIC NEUROPATHIC TYPE OF PAIN IN THE RIGHT MID CHEST, MINIMAL AT THIS TIME. EASILY CONTROLLED WITH APPLICATION OF LOCAL ANALGESIC CREAM. HE WAS SUPPOSED TO HAVE YEARLY CT SCAN FOR 5 YEARS, HAD A LAST CT SCAN IN SEPTEMBER 2023, WHICH SHOWED A NEW 5 MM NODULE IN RIGHT LOWER LOBE. Code(s): C80.1 - Malignant (primary) neoplasm, unspecified Category: Medical Plan: I DISCUSSED THE FINDINGS WITH THE PATIENT AND TOLD HER THAT SHE SHOULD HAVE A CT SCAN OF THE CHEST THIS YEAR FOR FOLLOW-UP. SHE IS AGREEABLE. HE WANTS TO BE CHECKED EVERY 6 MONTHS. Orders: Orders CT chest wo IV con Today C80.1 - Malignant (primary) neoplasm, unspecified, J43.9 - Emphysema, unspecified Coding Level of Care Code Est Pt Level 3 (87535) Diagnoses Pulmonary emphysema, unspecified emphysema type J43.9 COPD type: emphysema Emphysema type: unspecified Allergic rhinitis J30.9 Adenocarcinoma C80.1
--- OUTSIDE RECORDS SUMMARY | 2024-09-05 12:06 | XMS_ITS | Clinical Summary ---
Author Organization [facility] Address [address] [place] [address] Phone Care Team Providers Care Audit Officer Name Role Phone Chauncey Shafer MD Primary Care Provider Surgical History Surgery Date Site/Laterality Comments HYSTERECTOMY PROCEDURE: HISTORICAL HYSTERECTOMY CHOLECYSTECTOMY PROCEDURE: HISTORICAL CHOLECYSTECTOMY OTHER SURGICAL HISTORY PROCEDURE: HISTORY OTHER; COMMENT: HX Hernia X2 OTHER SURGICAL HISTORY PROCEDURE: HISTORY OTHER; COMMENT: HX Lung Medical History Medical History Date Comments Malignant neoplasm of ovary ([facility] V24, [facility] V28) DX:Malignant neoplasm of ova ry ([facility]) Alcohol abuse DX:Alcohol abuse Allergic rhinitis DX:Allergic rh initis Chest wall pain following surgery DX:Chest wall pain following surgery COPD (chronic obstructive pu lmonary disease) ([facility] V24, [facility] V28) DX:COPD (chronic o bstructive pulmonary disease) ([facility]) Gout DX:Gout Mixed hyperlipidemia DX:Mixed hy perlipidemia Essential (primary) hypertension DX:Essential (primary) hypertension Osteoporosis DX:Osteoporosis Type 2 diabetes mellitus wit h hyperglycemia ([facility] V24, [facility] V28) DX:Type 2 diabetes mellitus with hyperglycemia ([facility]) 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 11/01/2023 DX:History of cancer of midd le lobe bronchus or lung History of cancer of upper l obe bronchus or lung 11/01/2023 DX:History of cancer of uppe r lobe bronchus or lung History of stomach ulcers 11/01/2023 DX:His tory of stomach ulcers Gallstones 11/01/2023 DX:Gallstones Family History Medical History Relation Name Comments Lung cancer Brother Other: bone Mother Lung cancer Son Metastatic Canc er - to brain/bone/kidney/lung Relation Name Status Comments Brother Father Mother Son Social History Tobacco Use Types Packs/Day Years Used Date Smoking Tobacco: Former Cigarettes 1 28 0 03/22/1960 - 03/22/1988 Smokeless Tobacco: Never Alcohol Use Standard Drinks/Week Comments Yes 0 (1 standard drink = 0.6 oz pur e alcohol) Comments Unknown Sex and Gender Information Value Date Recorded Sex Assigned at Not on file Legal Sex Female 11:11 AM EST Gender Identity Not on file Sexual Orientation Not on file Obstetrics History Last Filed Vital Signs Vital Sign Reading Time Taken Comments Blood Pressure 161/71 11/01/2023 9:14 AM EDT Sitting L Arm Pulse 69 11/01/2023 9:14 AM EDT Temperature - - Respiratory Rate - - Oxygen Saturation - - Inhaled Oxygen Concentration - - Weight 39.7 kg (87 lb 9.6 oz) 9:14 AM EDT Height 152.4 cm (5') 11/01/2023 9:14 AM EDT Body Mass Index 17.11 11/01/2023 9:14 AM EDT Plan of Treatment Upcoming Encounters Date Type Department Care Team (Late st Contact Info) Description 10/20/2024 9:15 AM EDT Appointment [facility] CT Scan [address] [place] [phone] 10/31/2024 10:00 AM EDT Office Visit Thoracic Surgery - [place] [address] [phone] Cailin Nieto, AIRAM [address] [phone] Health Maintenance Due Date Last Done Comments COVID-19 Vaccine (#1) 1945 DTaP,Tdap,and Td Vaccines (1 - Tdap) 1957 Pneumococcal Vaccine: 50+ Ye ars (1 of 2 - PCV) 1957 Zoster Vaccines (1 of 2) 1959 RSV Immunization Adult Patie nts (1 - 1-dose 75+ series) 2013 Depression Screening 02/17/2022 Falls Risk Assessment 02/17/2022 Medicare Annual Wellness Visit 02/17/2022 Osteoporosis Screening (Bone Density Screening) 02/17/2022 Social Influencers of Health Screening 02/17/2022 Influenza Vaccine (Season Ended) 2024 HIB Vaccines Aged Out No longer eligi ble based on patient's age to complete this topic HPV Vaccines Aged Out No longer eligi ble based on patient's age to complete this topic Hepatitis A Vaccines Aged Out No long er eligible based on patient's age to complete this topic Hepatitis B Vaccines Aged Out No long er eligible based on patient's age to complete this topic IPV Vaccines Aged Out No longer eligi ble based on patient's age to complete this topic MMR Vaccines Aged Out No longer eligi ble based on patient's age to complete this topic Meningococcal ACWY Vaccine Aged Out N o longer eligible based on patient's age to complete this topic Meningococcal B Vaccine Aged Out No l onger eligible based on patient's age to complete this topic RSV Immunization Patients Un giselle 20 months Aged Out No longer eligible b ased on patient's age to complete this topic Varicella Vaccines Aged Out No longer eligible based on patient's age to complete this topic Insurance MEDICAID - [place] [employer] MEDICARE Care Teams Audit Officer Relationship Specialty Start Date End Date Chauncey Shafer MD [address] [place] [address] Dr Buster [place] PCP - General 04/17/21
== END 2024-09-05 11:06 | disposition home or self-care (01) ==
PROVIDERS: PCP Family Medicine; Visit Provider Internal Medicine
DX: J43.9 Emphysema, unspecified (principal); J30.9 Allergic rhinitis, unspecified; C80.1 Malignant (primary) neoplasm, unspecified
CPT/HCPCS: 99213

== ENCOUNTER → 2024-09-05 10:35 | Outpatient (BNVA) | payer MEDICARE, SELFPAY | PROVIDERS: PCP Family Medicine; Visit Provider Internal Medicine | DX: J43.9 Emphysema, unspecified (principal); J30.9 Allergic rhinitis, unspecified; C80.1 Malignant (primary) neoplasm, unspecified | CPT/HCPCS: 99212 ==

== ENCOUNTER 2024-12-19 15:56 | Outpatient (AMB) | payer MEDICARE, MEDICAID, SELFPAY ==
--- NOTE | 2024-12-19 16:00 | A.OFFPC_ITS ---
Vital Signs 12/19/24 16:16 Height 5 ft 1 in Weight 87 lb 6 oz BMI 16.5 BP 106/62 Blood Pressure Location Rt brachial Position Sitting Respiration 18 Pulse 63 Pulse Source Pulse Oximeter Temp 97.6 F Temp Source Temporal Artery Scan Pulse Oximetry (%) 96 Oxygen Delivery Method Room Air Intake Visit Reasons: CPE - see comments Intake Note: Nehemiah Vasquez presents in the office today for her annual physical. Patients legs are extremely swollen and she is in pain. Allergies Seasonal Allergies Allergy (Intermediate, Verified 12/19/24 16:09) Itchy Eyes aspirin (Aspirin) Allergy (Unknown, Verified 12/19/24 16:09) UNKNOWN codeine (CODEINE) Allergy (Unknown, Verified 12/19/24 16:09) ITCHING naproxen Allergy (Unknown, Verified 12/19/24 16:09) Unknown sodium hypochlorite solution (sodium hypochlorite) Allergy (Unknown, Verified 12/19/24 16:09) BLEACH-LIPS TIGHTEN Sulfa (Sulfonamide Antibiotics) Allergy (Unknown, Verified 12/19/24 16:09) Unknown trimethoprim (From Bactrim) Allergy (Unknown, Verified 12/19/24 16:09) Unknown cyanocobalamin (vitamin B12) Adverse Reaction (Intermediate, Verified 12/19/24 16:09) nausea Medication List - Last Reconciled 12/19/24 by Chauncey Shafer MD allopurinol 100 mg PO BID cholecalciferol (vitamin D3) 50 mcg PO DAILY diclofenac sodium 1% 2 grams topical QID hydroxyzine HCl 50 mg PO BEDTIME PRN 30 days lisinopril 40 mg PO DAILY omeprazole 20 mg PO DAILY 90 days sertraline 75 mg (1.5 x 50 mg) PO DAILY 90 days simvastatin 5 mg PO BEDTIME Tobacco use date assessed: 12/19/24 Fall risk assessment: 1 Fall in past year Last assessed Fall Risk: 12/19/24 Dental Screening Dental Screen Date: 12/19/24 Did you have a dental visit in the last 12 months?: No Did you have a dental problem in the last 6 months where you did not have access to dental care?: No Was dental information given to patient?: Patient declined HPI CPE - see comments HPI Details 84 y/o male presents for an extended exa m with f/u labs and health maintenance. Pt notes she has been feeling fatigued. She gets about 2-3 hours of sleep a night. Reports LE swelling. A1c today 5.5%. Blood pressure today 106/62, 63p. She is on lisinopril 40mg daily. Reports falls. [facility] Medical History Osteoporosis Gout Vitamin D deficiency Alcohol abuse Hypercholesterolemia Hypertension Type 2 diabetes mellitus with hyperglycemia Allergic rhinitis Adenocarcinoma Chest wall pain following surgery COPD (chronic obstructive pulmonary disease) Surgical History History of lobectomy of lung (~08/2019) History of ankle surgery Family History Father No problems noted. Mother No problems noted. Brother Bone cancer Other Substance abuse Social History (Updated 12/19/24 @ 16:14 by Jaleesa Cox CMA) Housing: Apartment Alcohol intake: current Alcohol intake frequency: a few times a week Patient Tobacco Use Status: Former Tobacco user e-Cigarette/Vaping Use: Never Used Second Hand Smoke Exposure: No service: No Current occupational status: retired Current occupational exposures/hazards: No Cognitive needs: No Hearing needs: No Vision needs: No Questionnaire RITESH-7 AMB Questionnaire RITESH-7 Date RITESH - 7 assessed: 12/19/24 Source: Developed by Drs. Dionicio Blanca, Norma Riddle, Sid Lr and colleagues, with an educational mitchell from [employer]. Review of Systems Const Denies chills, Denies fatigue, Denies fever(s), Denies headache(s) and Denies weakness Eyes Denies change in vision ENT Denies dizziness and Denies headache(s) Card Denies dyspnea Resp Denies cough, Denies dyspnea, Denies wheezing and Denies other (shortness of breath) GI Denies abdominal pain, Denies melena, Denies hematochezia, Denies change in bowel habits, Denies dyspepsia and Denies nausea Denies hematuria and Denies dysuria Musc Denies numbness and Denies tingling Skin/Breast Denies rash, Denies unusual bruising and Denies wounds Neuro Denies dizziness, Denies headache(s), Denies numbness, Denies Sensory deficit (Neuro), Denies tingling and Denies weakness Psych Denies anxiety and Denies depression Endo Denies fatigue Nguyễn/Lymph Denies easy bleeding and Denies easy bruising Aller/Immun Denies wheezing Physical exam (Primary Care) Vital Signs: Last Vital Signs Temp 97.6 F 12/19/24 16:16 Pulse 63 12/19/24 16:16 Resp 18 12/19/24 16:16 BP 106/62 12/19/24 16:16 Pulse Ox 96 12/19/24 16:16 Oxygen Delivery Method Room Air 12/19/24 16:16 BMI result Body Mass Index 16.5 Tobacco/Smoking Status: Tobacco use Status Tobacco use date assessed 12/19/24 12/19/24 16:18 Patient Tobacco Use Status Former Tobacco user 12/19/24 16:14 e-Cigarette/Vaping Use Never Used 12/19/24 16:14 Const General: well developed; No acute distress Nutritional Appearance: well nourished and underweight Orientation/consciousness: patient oriented x3 HENMT Head: Yes normocephalic and Yes atraumatic Ears: hearing grossly normal bilaterally and TM's normal bilaterally General nose exam: Normal external nose present and Normal nares present Mouth: Normal oral and palatal mucosa present and moist mucous membranes Teeth and gingiva: dentition normal Throat: Yes posterior oropharynx normal Eyes General: appearance normal, both eyes and all related structures Pupils: Equal, round and reactive pupils present EOM: EOMs intact bilaterally Neck Neck: Yes normal visual inspection, Yes no lymphadenopathy and Yes trachea midline Thyroid: Thyroid normal Carotids: no bruits Lymphatic: no lymphadenopathy noted Chest Chest palpation & inspection: normal inspection of the chest Resp Effort & Inspection: normal respiratory effort Auscultation: clear to auscultation bilaterally Cardio Rate: regular rate Rhythm: regular rhythm Heart sounds: S1 normal heart sound present, S2 normal heart sound present, no gallops, no murmurs and no rubs Bruits: no abdominal aortic bruits and no carotid bruits GI Palpation (GI): No Abdominal aortic bruit present, Soft to palpation, nontender, No hepatosplenomegaly present and No Rebound tenderness present Auscultation: normal bowel sounds General: Yes no CVA tenderness Back/Spine/Pelvis Back: no CVA tenderness Cervical Spine: cervical ROM normal and No Cervical spine tenderness Thoracic/Lumbar Spine: thoraco-lumbar ROM normal, No pain with thoraco-lumbar ROM, No thoracic spinal tenderness and No lumbar spinal tenderness Skin Lesions: no lesions Rashes: no rashes Trauma: no lacerations or abrasions Wounds: no wounds Nails: normal Neuro General: patient oriented x3 and gait normal Cranial nerves: Yes Equal, round and reactive pupils present Cognition (Neuro): normal cognition Gait exam (Neuro): Normal gait present Motor exam (neuro): 5/5 motor strength present throughout Sensory Exam: No Sensory deficit (Neuro) Deep tendon reflexes (DTR's): Right patellar reflex intensity grade: 2+ and Left patellar reflex intensity grade: 2+ Extrem Other: Swelling bilateral feet and ankles, R worse than L R knee has some swelling and pain General: Yes normal to inspection and No edema Psych Appearance: grossly normal Affect: normal affect Attitude: cooperative Thought process: Normal thought process present Results AMB Hemoglobin A1c AMB Hemoglobin A1c 5.5 % Last Edit by Jaleesa Cox CMA on 12/19/24 16:30 Results Reviewed Results Reviewed: Laboratory Last Values Hgb A1c (Clinic) 5.5 % (4.0-6.0) 12/19/24 16:23 Coding Level of Care Code Est Pt Level 5 (87237) Diagnoses Diet-controlled diabetes mellitus E11.9 Fatigue R53.83 Swelling of lower extremity M79.89 Falls frequently R29.6 Right knee pain M25.561 Adult general medical exam Z00.00 Assessment & Plan Assessment & Plan (1) Diet-controlled diabetes mellitus: Code(s): E11.9 - Type 2 diabetes mellitus without complications Category: Medical Plan: A1c 5.5%. Controlled. Goal is less than 7% Continue diet control (2) Fatigue: Code(s): R53.83 - Other fatigue Category: Medical Plan: Unclear cause Will check labs Can follow-up at next visit (3) Swelling of lower extremity: Code(s): M79.89 - Other specified soft tissue disorders Category: Medical Plan: Falling bilateral lower extremities including feet, ankles and calves. Also right knee swelling Will give her compression stockings advise she elevate her legs and avoid salt Checking x-rays of knees ankles and feet No cords palpated doubt DVT as this is bilateral despite right worse than left. (4) Falls frequently: Code(s): R29.6 - Repeated falls Category: Medical Plan: Frequent falls and lower extremity edema Also some joint swelling at her right knee Checking x-ray Advised a cane but patient works long hours and says she is on work with a cane Start physical therapy - discussed patient that if we can not improve flexibility and balance, she not be able to work if she falls and hurt herself. (5) Right knee pain: Code(s): M25.561 - Pain in right knee Category: Medical Plan: Right knee pain and swelling Patient notes that she fell and has had increased swelling at that joint Also has bilateral edema Also has a history of gout Checking labs Checking x-ray Starting physical therapy (6) Adult general medical exam: Code(s): Z00.00 - Encounter for general adult medical examination without abnormal findings Category: Medical Plan: 84-year-old female presents for an extended exam Orders: Orders XR ankle LT 2V 12/19/24 M79.89 - Other specified soft tissue disorders XR foot LT 2V 12/19/24 M79.89 - Other specified soft tissue disorders XR knee RT 3V 12/19/24 M25.569 - Pain in unspecified knee, M79.89 - Other specified soft tissue disorders XR knee LT 3V 12/19/24 M25.569 - Pain in unspecified knee, M79.89 - Other specified soft tissue disorders PT Evaluation and Treatment 12/19/24 M25.671 - Stiffness of right ankle, not elsewhere classified, M25.672 - Stiffness of left ankle, not elsewhere classified, R26.81 - Unsteadiness on feet, R29.6 - Repeated falls Comprehensive [place]. Panel Fast 12/19/24 R29.6 - Repeated falls, Z00.00 - Encounter for general adult medical examination without abnormal findings Complete Blood Count Auto Diff 12/19/24 R29.6 - Repeated falls, Z00.00 - Encounter for general adult medical examination without abnormal findings Lipid Panel 12/19/24 R29.6 - Repeated falls, Z00.00 - Encounter for general adult medical examination without abnormal findings Microalbumin, Random (w Creat) 12/19/24 I10 - Essential (primary) hypertension, R29.6 - Repeated falls TSH reflex Free T4 12/19/24 R29.6 - Repeated falls, Z00.00 - Encounter for general adult medical examination without abnormal findings AMB Hemoglobin A1c 12/19/24 E11.65 - Type 2 diabetes mellitus with hyperglycemia XR ankle RT 2V 12/19/24 M79.89 - Other specified soft tissue disorders XR foot RT 2V 12/19/24 M79.89 - Other specified soft tissue disorders UA CC w/rflx Micro + Cult 12/19/24 R29.6 - Repeated falls, Z00.00 - Encounter for general adult medical examination without abnormal findings Uric Acid 12/19/24 Z87.39 - Personal history of other diseases of the musculoskeletal system and connective tissue Referrals Vascular Surgery Referral M79. - Other specified soft tissue disorders Medications: New compr.stocking,knee,long,small 20-30mmHg Daily As directed, 90 days 12 ea 0RF M79.89 - Other specified soft tissue disorders
[2024-12-19 16:16] VITALS: BP 106/62; PULSE 63; RESP 18; TEMP 36.4; O2SAT 96; BMI 16.5
--- OUTSIDE RECORDS SUMMARY | 2024-12-19 17:02 | XMS_ITS | Encounter Summary ---
Author Organization [facility] Address [address] [place] [address] Care Team Providers Care Almond Grinder Name Role Phone Chauncey Shafer MD Primary Care Provider [phone] Encounter Details Date Type Department Care Team ([facility] Contact Info) Description 11/13/2024 Telephone Thoracic Surgery - [place] [address] [phone] Luis Bro MD 299 [facility] [address] [place] [address] Social History Tobacco Use Types Packs/Day Years Used Date Smoking Tobacco: Former Cigarettes 1 28 0 03/22/1960 - 03/22/1988 Smokeless Tobacco: Never Alcohol Use Standard Drinks/Week Comments Yes 0 (1 standard drink = 0.6 oz pur e alcohol) Comments Unknown Sex and Gender Information Value Date Recorded Sex Assigned at Female 11/01/2024 9:49 PM EDT Legal Sex Female 11:11 AM EST Gender Identity Female 11/23/2024 3:58 PM EDT Sexual Orientation Straight 11/23/2024 3: 58 PM EDT documented as of this encounter Progress Notes * Nancy Reyez MA - 12/04/2024 4:06 PM EDT [place] [facility] [place] mailed out 12/04/24 * Divine Jennings - 11/13/2024 2:59 PM EDT Daughter called to request CT be done in [place]. documented in this encounter Plan of Treatment Upcoming Encounters Date Type Department Care Team (Late st Contact Info) Description 01/04/2025 4:30 PM EDT Appointment [facility] CT Scan [address] [place] [phone] 01/18/2025 10:00 AM EDT Office Visit Thoracic Surgery - [place] [address] [phone] Christal Tucker PA [address] [address] documented as of this encounter Visit Diagnoses Not on filedocumented in this encounter Care Teams Almond Grinder Relationship Specialty Start Date End Date Chauncey Shafer MD [address] [place] [address] Dr Hood [place], [place] PCP - General 04/17/21 documented as of this encounter
--- OUTSIDE RECORDS SUMMARY | 2024-12-19 17:02 | XMS_ITS | Clinical Summary ---
Author Organization [facility] Address [address] [place] [address] Phone Care Team Providers Care Instructional Manager Name Role Phone Chauncey Shafer MD Primary Care Provider Encounters Date Type Department Care Team Description 11/13/2024 Telephone Thoracic Surgery - [place] 299 [facility] [address] [place] [address] Luis Bro MD from Last 3 Months Surgical History Surgery Date Site/Laterality Comments HYSTERECTOMY PROCEDURE: HISTORICAL HYSTERECTOMY CHOLECYSTECTOMY PROCEDURE: HISTORICAL CHOLECYSTECTOMY OTHER SURGICAL HISTORY PROCEDURE: HISTORY OTHER; COMMENT: HX Hernia X2 OTHER SURGICAL HISTORY PROCEDURE: HISTORY OTHER; COMMENT: HX Lung Medical History Medical History Date Comments Malignant ne[place] of [place] [place] [facility] [place] DX:Malignant neoplasm of ova ry ([facility]) Alcohol abuse DX:Alcohol abuse Allergic rhinitis DX:Allergic rh initis Chest wall pain following surgery DX:Chest wall pain following surgery COPD (chronic obstructive pu lmonary disease) [place] [place] [facility] [place] DX:COPD (chronic o bstructive pulmonary disease) ([facility]) Gout DX:Gout Mixed hyperlipidemia DX:Mixed hy perlipidemia Essential (primary) hypertension DX:Essential (primary) hypertension Osteoporosis DX:Osteoporosis Type 2 diabetes mellitus wit h hyperglycemia [place] [facility] [place]28) DX:Type 2 diabetes mellitus with hyperglycemia (HCC) History of cancer of middle lobe bronchus [...] Orientation Straight 11/23/2024 3: 58 PM EDT Obstetrics History Last Filed Vital Signs Vital [...] Info) Description 01/04/2025 4:30 PM EDT Appointment [facility] CT Scan [address] [place] [phone] 01/18/2025 10:00 AM EDT Office Visit Thoracic Surgery - [place] [address] [phone] Christal Tucker PA [address] [address] Health Maintenance Due Date Last Done Comments COVID-19 Vaccine (#1) 1945 DTaP,Tdap,and Td Vaccines (1 - Tdap) 1957 Zoster Vaccines (1 of 2) 1957 Pneumococcal Vaccine: 50+ Ye ars (1 of 1 - PCV) 01/28/1988 RSV Immunization Adult Patie nts (1 - 1-dose 75+ series) 2013 Falls Risk Assessment 02/17/2022 Medicare Annual Wellness Visit 02/17/2022 Osteoporosis Screening (Bone Density Screening) 02/17/2022 Social Influencers of Health Screening 02/17/2022 Depression Screening 03/22/2024 Influenza Vaccine (#1) 2024 HIB Vaccines Aged Out No longer [...] to complete this topic Insurance [place]ICAID - [place] [employer] MEDICARE Care Teams Instructional Manager Relationship Specialty Start Date End Date Chauncey Shafer MD [address] [place] [address] Dr Buster [place] PCP - General 04/17/21
== END 2024-12-19 17:08 | disposition home or self-care (01) ==
PROVIDERS: PCP Family Medicine; Visit Provider Family Medicine
DX: E11.9 Type 2 diabetes mellitus without complications (principal); R53.83 Other fatigue; M79.89 Other specified soft tissue disorders; R29.6 Repeated falls; M25.561 Pain in right knee; Z00.00 Encounter for general adult medical examination without abnormal findings

== ENCOUNTER → 2024-12-19 15:56 | Outpatient (BNVA) | payer MEDICARE, MEDICAID, SELFPAY | PROVIDERS: PCP Family Medicine; Visit Provider Family Medicine | DX: Z00.00 Encounter for general adult medical examination without abnormal findings (principal); R60.0 Localized edema; R53.83 Other fatigue; E11.9 Type 2 diabetes mellitus without complications; M79.89 Other specified soft tissue disorders; R29.6 Repeated falls; M25.561 Pain in right knee | CPT/HCPCS: 83036; 96127; 99212 ==

== ENCOUNTER 2025-03-07 10:38 | Outpatient (AMB) | payer MEDICARE, MEDICAID, SELFPAY ==
[2025-03-07 10:52] VITALS: BP 140/60; PULSE 67; O2SAT 100; BMI 16.4
--- NOTE | 2025-03-07 10:52 | A.OFFVIS_ITS ---
Vital Signs 03/07/25 10:52 Height 5 ft 1 in Weight 87 lb BMI 16.4 BP 140/60 H Blood Pressure Location Lt brachial Position Sitting Pulse 67 Pulse Source Pulse Oximeter Pulse Oximetry (%) 100 Oxygen Delivery Method Room Air Intake Visit Reasons: COPD Intake Note: pt is here for follow up and states she has not been feeling well, she has a cough with phelgm Lodging Facilities Attendant Required: No Allergies Seasonal Allergies Allergy (Intermediate, Verified 03/07/25 11:07) Itchy Eyes aspirin (Aspirin) Allergy (Unknown, Verified 03/07/25 11:07) UNKNOWN codeine (CODEINE) Allergy (Unknown, Verified 03/07/25 11:07) ITCHING naproxen Allergy (Unknown, Verified 03/07/25 11:07) Unknown sodium hypochlorite solution (sodium hypochlorite) Allergy (Unknown, Verified 03/07/25 11:07) BLEACH-LIPS TIGHTEN Sulfa (Sulfonamide Antibiotics) Allergy (Unknown, Verified 03/07/25 11:07) Unknown trimethoprim (From Bactrim) Allergy (Unknown, Verified 03/07/25 11:07) Unknown cyanocobalamin (vitamin B12) Adverse Reaction (Intermediate, Verified 03/07/25 11:07) nausea Medication List - Last Reconciled 03/07/25 by Nile Her MD allopurinol 100 mg PO BID 90 days cholecalciferol (vitamin D3) 50 mcg PO DAILY compr.stocking,knee,long,small 20-30mmHg Daily As directed, 90 days diclofenac sodium 1% 2 grams topical QID hydroxyzine HCl 50 mg PO BEDTIME PRN 30 days lisinopril 40 mg PO DAILY 90 days omeprazole 20 mg PO DAILY 90 days sertraline 75 mg (1.5 x 50 mg) PO DAILY 90 days simvastatin 5 mg PO BEDTIME Do you need a note to return to daycare/school/sports/work: No HPI HPI COPD: Details: 81-year-old woman status post Davinci right middle lobectomy and right upper lobe posterior segmentectomy for 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 She was being followed by Dr. Moody on a yearly basis, and has had yearly CT scan, last one in September 2022 which showed no recurrence. 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 She has mild intermittent cough which is somewhat worse during the last 4 weeks. She has hard time to expectorates. She denies having had any respiratory infection. She has history of smoking in the remote past but not for many years. [facility] Medical History Osteoporosis Gout Vitamin D deficiency Alcohol abuse Hypercholesterolemia Hypertension Type 2 diabetes mellitus with hyperglycemia Allergic rhinitis Adenocarcinoma Chest wall pain following surgery COPD (chronic obstructive pulmonary disease) Surgical History History of lobectomy of lung (~08/2019) History of ankle surgery Family History Father No problems noted. Mother No problems noted. Brother Bone cancer Other Substance abuse Social History Housing: Apartment Alcohol intake: current Alcohol intake frequency: a few times a week Patient Tobacco Use Status: Former Tobacco user e-Cigarette/Vaping Use: Never Used Second Hand Smoke Exposure: No service: No Current occupational status: retired Current occupational exposures/hazards: No Cognitive needs: No Hearing needs: No Vision needs: No Review of Systems Const Denies chills, Denies fatigue, Denies fever(s), Denies headache(s) and Denies weakness ENT Denies dizziness and Denies headache(s) Card Denies dyspnea Resp Denies cough, Denies dyspnea, Denies wheezing and Denies other (shortness of breath) Musc Denies numbness and Denies tingling Neuro Denies dizziness, Denies headache(s), Denies numbness, Denies tingling and Denies weakness Psych Denies anxiety and Denies depression Endo Denies fatigue Aller/Immun Denies wheezing Physical Exam Vital Signs: Last Vital Signs Pulse 67 03/07/25 10:52 BP 140/60 H 03/07/25 10:52 Pulse Ox 100 03/07/25 10:52 Oxygen Delivery Method Room Air 03/07/25 10:52 BMI result Body Mass Index 16.4 Const General: healthy appearing, comfortable, no acute distress, alert and awake Orientation/consciousness: patient oriented x3 HEENT Head: Yes normal to inspection General nose exam: No nasal polyps present and No nasal discharge present Face and sinus: Yes sinuses nontender Mouth: oropharynx normal Throat: Yes posterior oropharynx normal Eyes General: appearance normal, both eyes and all related structures Neck Neck: Yes normal visual inspection, Yes no lymphadenopathy, Yes trachea midline and Yes no JVD Thyroid: Thyroid normal Chest Chest palpation & inspection: normal inspection of the chest, normal palpation of entire chest wall and no tenderness Resp Auscultation: clear to auscultation bilaterally, no crackles and no wheezes Cardio Palpation: normal PMI Rate: regular rate Rhythm: regular rhythm Heart sounds: no gallops and no murmurs GI Palpation (GI): Soft to palpation, nontender, No hepatosplenomegaly present and no masses Auscultation: normal bowel sounds Back/Spine/Pelvis Thoracic/Lumbar Spine: thoracic and lumbar spine normal to inspection, thoraco- lumbar ROM limited and thoraco-lumbar spasm Skin General skin exam: no rashes or lesions noted Neuro General: patient oriented x3 and no focal motor deficits Cranial nerves: Yes CN's II-XII intact bilaterally Extrem General: Yes normal to inspection, Yes no clubbing, cyanosis or edema, Yes no calf tenderness, Yes venous stasis dermatitis and Yes other (MILD ARTHRITIC CHANGES IN WRIST JOINTS ) Psych Appearance: well kempt Mental Status: mental status grossly normal Speech and movement: Normal speech and movement present Office Procedures Spirometry Testing Spirometry Comments: SPIROMETRY DONE 88035- Spirometry Results Reviewed Results Reviewed: SPIROMETRY RHH=400 FEV1= 97% FEV1/FVC = 54 FEF 25-75 = 47 % Assessment & Plan Assessment & Plan (1) COPD (chronic obstructive pulmonary disease): Comment: COPD is mild to moderate . SPIROMETRY findings today C/W COPD She does have mild cough and SOB on exersion . Code(s): J44.9 - Chronic obstructive pulmonary disease, unspecified Category: Medical Qualifiers: COPD type: emphysema Emphysema type: unspecified Qualified Code(s): J43.9 - Emphysema, unspecified Plan: I explained to her the findings of spirometry. Explained to her about mild to moderate COPD I think she will benefit from the use of a mild ICS?LABA agent. So I have prescribed Wixela 100-50 to use 1 inhalation b.i.d. . Will check her back in 2 months. Orders: Orders AMB Spirometry Testing Today J43.9 - Emphysema, unspecified Coding Level of Care Code Est Pt Level 3 (32227) Diagnoses Pulmonary emphysema, unspecified emphysema type J43.9 COPD type: emphysema Emphysema type: unspecified CPT Codes Spirometry - CPT: 87406- Spirometry ([id number])
--- OUTSIDE RECORDS SUMMARY | 2025-03-07 13:25 | XMS_ITS | Encounter Summary ---
Author Organization [facility] Address [address] [place] [address] Care Team Providers Care Operational Assistant Name Role Phone Chauncey Shafer MD Primary Care Provider Encounter Details Date Type Department Care Team ([facility] Contact Info) Description 01/31/2025 Telephone Thoracic Surgery - [address] [address] Cailin Nieto NP [address] [place] [phone] Social History Tobacco Use Types Packs/Day Years [...] as of this encounter Progress Notes * Cailin Nieto NP - 03/06/2025 8:22 AM EST Please call patient and discuss 'no shows' of follow up chest CT scan. She is overdue and 'should' be rescheduled. * Olivia Newberry MA - 03/05/2025 2:34 PM EST Pt did not have her CT done recently in January as requested. Disc received and scans from were sent over. * Olivia Newberry MA - 03/02/2025 2:47 PM EST Called [facility] for scans to be faxed over and disc to be made and picked up by assistant spa director. * Olivia Newberry MA - 01/31/2025 12:00 PM EST Called the phone number on file with no response. Unable to leave a VM, inbox full. Will call againlater to remove patient off of the schedule as she has not had her CT in December due to illness. * Cailin Nieto NP - 01/31/2025 11:14 AM EST Patient has an appointment on Wednesday02/05/[address] review that was done in [facility]. Can you please call to get those results so that we may review his scan before his appointment. documented in this encounter Plan of Treatment Not on file documented as of this encounter Visit Diagnoses Not on filedocumented in this encounter Care Teams Operational Assistant Relationship Specialty Start Date End Date Chauncey Shafer MD [address] [place] [address] Dr Buster MA PCP - General 04/17/21 documented as of this encounter
--- OUTSIDE RECORDS SUMMARY | 2025-03-07 13:25 | XMS_ITS | Clinical Summary ---
Author Organization [facility] Address [address] [place] [address] Phone Care Team Providers Care Scout Executive Name Role Phone Chauncey Shafer MD Primary Care Provider Encounters Date Type Department Care Team Description 03/06/2025 Telephone Pulmonology - [place] [address] [phone] Marianne Rawls, DAERN 02/02/2025 Telephone Pulmonology - [place] [address] [phone] Lazaro Jenkins MA 01/31/2025 Telephone Thoracic Surgery - [place] [address] [phone] Cailin Nieto NP from Last 3 Months Surgical History Surgery Date Site/Laterality Comments HYSTERECTOMY PROCEDURE: HISTORICAL HYSTERECTOMY CHOLECYSTECTOMY PROCEDURE: HISTORICAL CHOLECYSTECTOMY OTHER SURGICAL HISTORY PROCEDURE: HISTORY OTHER; COMMENT: HX Hernia X2 OTHER SURGICAL HISTORY PROCEDURE: HISTORY OTHER; COMMENT: HX Lung Medical History Medical History Date Comments Malignant ne[facility] ([facility]) DX:Malignant neoplasm of ova ry (HCC) Alcohol abuse DX:Alcohol abuse Allergic rhinitis DX:Allergic rh initis Chest wall pain following surgery DX:Chest wall pain following surgery COPD (chronic obstructive pu lmonary disease) (CMS/HCC V24, CMS/[facility] V28) DX:COPD (chronic o bstructive pulmonary disease) (HCC) Gout DX:Gout Mixed hyperlipidemia DX:Mixed hy perlipidemia Essential (primary) hypertension DX:Essential (primary) hypertension Osteoporosis DX:Osteoporosis Type 2 diabetes mellitus wit h hyperglycemia (CMS/HCC V24, CMS/HCC V28) DX:Type 2 diabetes mellitus with hyperglycemia [...] Orientation Straight 11/23/2024 3: 58 PM EDT Last Filed Vital Signs Vital Sign Reading [...] 11/01/2023 9:14 AM EDT Plan of Treatment Health Maintenance Due Date Last Done Comments COVID-19 Vaccine (#1) 1943 Zoster Vaccines (1 of 2) 1957 Pneumococcal Vaccine: 50+ Ye ars (1 of 1 - PCV) 01/28/1988 RSV Immunization Adult Patie nts (1 - 1-dose 75+ series) 2013 Falls Risk Assessment 02/17/2022 Medicare Annual Wellness Visit 02/17/2022 Osteoporosis Screening (Bone Density Screening) 02/17/2022 Social Influencers of Health Screening 02/17/2022 DTaP,Tdap,and Td Vaccines (2 - Td or Tdap) 10/09/2022 10/09/2012 Depression Screening 03/22/2024 Influenza Vaccine (#1) 2024 [...] - [place] [employer] [place] Care Teams Scout Executive Relationship Specialty Start Date End Date Chauncey Shafer MD [address] [place] [address] Dr Buster MA PCP - General 04/17/21
--- OUTSIDE RECORDS SUMMARY | 2025-03-07 13:25 | XMS_ITS | Encounter Summary ---
Author Organization [facility] Address [address] [place] [address] Care Team Providers Care Software Licensing Executive Name Role Phone Chauncey Shafer MD Primary Care Provider [phone] Encounter Details Date Type Department Care Team ([facility] st Contact Info) Description 03/06/2025 Telephone Pulmonology - [address] [phone] Marianne Rawls RN Social History Tobacco Use Types Packs/Day Years [...] as of this encounter Progress Notes * Marianne Rawls RN - 03/06/2025 10:27 AM EST LVM asking Daughter to return call about patient having canceled several appts in the office as well as several CT-Scans. documented in this encounter Plan of Treatment Not on file documented as of this encounter Visit Diagnoses Not on filedocumented in this encounter Care Teams Software Licensing Executive Relationship Specialty Start Date End Date Chauncey Shafer MD [address] [facility] [address] Buster [place] PCP - General 04/17/21 documented as of this encounter
--- OUTSIDE RECORDS SUMMARY | 2025-03-07 13:25 | XMS_ITS | Clinical Summary ---
Author Organization [facility] [address] [facility] Address [address] [place] [address] Care Team Providers Care Refrigeration Service Technician Name Role Phone Spencer Jean-Baptiste MD Primary Care Provider [phone] Allergies Active Allergy Reactions Criticality Noted Date Comments Aspirin 10/09/2012 Medications UNKNOWN TO PATIENT A ctive Immunizations Immunization Administration Dates Next Due Tdap 10/09/2012 Social History Tobacco Use Types Packs/Day Years Used Date Smoking Tobacco: Former Alcohol Use Standard Drinks/Week Comments Yes 0 (1 standard drink = 0.6 oz pur e alcohol) Comments No Sex and Gender Information Value Date Recorded Sex Assigned at Not on file Legal Sex Female 12:54 PM EDT Gender Identity Not on file Sexual Orientation Not on file Last Filed Vital Signs Vital Sign Reading Time Taken Comments Blood Pressure 154/80 10/09/2012 1:02 PM EDT Pulse 67 10/09/2012 1:00 PM EDT Temperature 36.8 C (98.3 F) 10/09/2012 1:00 PM EDT Respiratory Rate 16 10/09/2012 1:00 PM EDT Oxygen Saturation 99% 10/09/2012 1:00 PM EDT Inhaled Oxygen Concentration - - Weight 45.4 kg (100 lb) 10/09/2012 1:00 PM EDT Height - - Body Mass Index - - Plan of Treatment Health Maintenance Due Date Last Done Comments HIV screening 1951 Lipid disorder screening 1978 Diabetes screening 1983 Pneumococcal Vaccine (50+ ye ars) (1 of 1 - PCV) 01/28/1988 Shingles vaccine (Shingrix) (1 of 2 - Shingrix (RZV) 2 Dose Standard Series) 01/28/1988 Osteoporosis screening (bone density) 2003 RSV Immunization (1 - 1-dose 75+ series) 2013 Tetanus adult (Td q 10,TDAP once) 10/09/2022 013 Influenza vaccine 10/20/2024 Covid-19 vaccine series (2024- season) 2024 Cervical cancer screening Discontinued Colon cancer screening, Colonoscopy Discontinued Meningococcal B Vaccine Aged Out No l onger eligible based on patient's age to complete this topic Meningococcal Vaccine Aged Out No kiara maria t eligible based on patient's age to complete this topic Insurance MEDICARE Member Subscriber Plan / Payer (Ef fective 2003-Present) Name:Nehemiah Tobias Cha Member ID:[id number] Relation to Subscriber:Self Name:Nehemiah Tobias Cha Subscriber ID:[id number] Payer ID:[id number] Group ID:Not on file Type:Not on file Address: [address] MEDICARE MEDICARE MEDICARE Care Teams Refrigeration Service Technician Relationship Specialty Start Date End Date Spencer Jean-Baptiste MD PCP - General Internal Medicine 10/09/12
== END 2025-03-07 11:31 | disposition home or self-care (01) ==
LOC: HO.HPS 10:38
PROVIDERS: PCP Family Medicine; Visit Provider Internal Medicine
DX: J43.9 Emphysema, unspecified (principal)
CPT/HCPCS: 94010; 99213

== ENCOUNTER → 2025-03-07 10:38 | Outpatient (BNVA) | payer MEDICARE, MEDICAID, SELFPAY | PROVIDERS: PCP Family Medicine; Visit Provider Internal Medicine | DX: J43.9 Emphysema, unspecified (principal) | CPT/HCPCS: 94010; 99212 ==

== ENCOUNTER 2025-03-20 09:34 | Outpatient (REF) | payer MEDICARE, MEDICAID, SELFPAY ==
--- NOTE | ~2025-03-20 | CT_ITS ---
EXAMINATION: CT CHEST WITHOUT IV CONTRAST INDICATION: J43.9 - Emphysema, unspecified COMPARISON: Comparison is made with the prior examination dated 10/26/2022. TECHNIQUE: Helical CT scan of the chest was performed without intravenous contrast. Coronal and sagittal reformatted images were generated and reviewed. This CT exam was performed with one or more of the following dose reduction techniques: automated exposure control, adjustment of the mA and/or kV according to patient size, use of iterative reconstruction technique. DLP: 67 mGy-cm CHEST: THYROID: The thyroid is unremarkable. LUNGS: Again seen is a suture line in the right upper lobe. There is nodular thickening of the right major fissure which is more pronounced than on the prior study. There is a stable stellate opacity in the superior segment of the right lower lobe (series 5, image 34). There is an 8 x 6 mm nodular density in the right lower lobe (series 5, image 54) which was not present on the prior study. There are 2 adjacent nodules in the left upper lobe which measure up to 5 mm in size (series 5, images 52-53). There is a stable 3 mm nodule at the left lung base (series 5, image 104). MEDIASTINUM: There are paratracheal lymph nodes measuring up to 9 mm in short axis dimension. MALU: Evaluation of the hilar regions is limited by lack of intravenous contrast material. CARDIOVASCULATURE: The heart is mildly enlarged. There is no pericardial effusion. There is dilatation of the ascending thoracic aorta measuring up to 3.5 cm in diameter. DEGREE OF CORONARY CALCIFICATION: severe PLEURA: There is no pleural effusion. No pneumothorax. MAIN AIRWAYS: The mainstem bronchi and proximal branches are patent. AXILLA: There is no axillary lymphadenopathy. BONES AND SOFT TISSUES: Unremarkable UPPER ABDOMEN: The visualized portions of the liver, spleen, and adrenals have an unremarkable unenhanced appearance. Again seen is dilatation of the common bile duct. CT/CT chest wo IV con IMPRESSION: 1. Nodular thickening of the right major fissure which is more pronounced than on the prior study. 2. New 8 x 6 mm nodular density in the right lower lobe. 3. Adjacent nodules in the left upper lobe measuring up to 5 mm, which are new from the prior study. 4. Comparison with more recent prior outside studies is recommended to determine the significance of these findings. Electronically signed by: Dionicio Hernandez MD 03/20/2025 10:43 AM PETRONA IRIZARRY
--- OUTSIDE RECORDS SUMMARY | 2025-03-20 12:20 | XMS_ITS | Clinical Summary ---
Author Organization [facility] [address] [facility] Address [address] [place] [address] Care Team Providers Care Superintendent Oil Field Drilling Name Role Phone Spencer Jean-Baptiste MD Primary Care Provider [phone] Allergies Active Allergy Reactions Criticality Noted Date [...] (Ef fective 2003-Present) Name:Nehemiah Tobias Cha Member ID:[id number] Relation to Subscriber:Self Name:Nehemiah Tobias Cha Subscriber ID:[id number] Payer ID:[id number] Group ID:Not on file Type:Not on file Address[address] MEDICARE MEDICARE MEDICARE Care Teams Superintendent Oil Field Drilling Relationship Specialty Start Date End Date Spencer Jean-Baptiste MD PCP - General Internal Medicine 10/09/12
--- OUTSIDE RECORDS SUMMARY | 2025-03-20 12:20 | XMS_ITS | Clinical Summary ---
Author Organization [facility] Address [address] [place] [address] Phone Care Team Providers Care Regulatory Affairs Analyst Name Role Phone Chauncey Shafer MD Primary Care Provider Encounters Date Type Department Care Team Description 03/06/2025 Telephone Pulmonology - [place] [address] [phone] Marianne Rawls, DAREN 02/02/2025 Telephone Pulmonology - [place] [address] [phone] Lazaro Jenkins MA 01/31/2025 Telephone Thoracic Surgery - [place] [address] [phone] Cailin Nieto NP from Last 3 Months Surgical History Surgery Date Site/Laterality Comments HYSTERECTOMY PROCEDURE: HISTORICAL HYSTERECTOMY CHOLECYSTECTOMY PROCEDURE: HISTORICAL CHOLECYSTECTOMY OTHER SURGICAL HISTORY PROCEDURE: HISTORY OTHER; COMMENT: HX Hernia X2 OTHER SURGICAL HISTORY PROCEDURE: HISTORY OTHER; COMMENT: HX Lung Medical History Medical History Date Comments Malignant neoplasm of ovary ([facility]/HCC V24, [facility] V28) DX:Malignant neoplasm of ova ry (HCC) Alcohol abuse DX:Alcohol abuse Allergic rhinitis DX:Allergic rh initis Chest wall pain following surgery DX:Chest wall pain following surgery COPD (chronic obstructive pu lmonary disease) (CMS/HCC V24, CMS/[facility] V28) DX:COPD (chronic o bstructive pulmonary disease) [...] - [place] [employer] [place] Care Teams Regulatory Affairs Analyst Relationship Specialty Start Date End Date Chauncey Shafer MD [address] [place] [address] Dr Buster MA PCP - General 04/17/21
== END 2025-03-20 09:35 ==
LOC: HO.CT 09:34
PROVIDERS: PCP Family Medicine; Visit Provider Internal Medicine
DX: J43.9 Emphysema, unspecified (principal); C80.1 Malignant (primary) neoplasm, unspecified
CPT/HCPCS: 71250

== ENCOUNTER → 2025-03-20 09:36 | Outpatient (BNV) | payer MEDICARE, MEDICAID, SELFPAY | PROVIDERS: PCP Family Medicine; Visit Provider Radiology Diagnostic Radiology | DX: R91.1 Solitary pulmonary nodule (principal) | CPT/HCPCS: 71250 ==